=== PATIENT | female | born 1955 | race Caucasian/White ===

== ENCOUNTER 2017-08-27 13:51 | Inpatient (IN) | payer SELFPAY ==
[~2017-08-27 13:51] MED LIST: ISOVUE-370 76%-LOCM 1 ML ONE
[2017-08-27 15:46] LABS: Hemoglobin 13.4 g/dL (12.0-16.0); Mean Corpuscular HGB CONC 34.5 g/dL (32.0-36.0); Mean Corpuscular Hemoglobin 33.6 pg (27.0-31.0); Mean Corpuscular Volume 97.4 fl (81.0-99.0); Mean Platelet Volume 6.2 fL (7.4-10.4); Platelet Count 349 thou/uL (130-400); RBC Distribution Width 12.2 % (11.5-14.5); Red Blood Cell (RBC) Count 3.99 mill/uL (4.20-5.40); White Blood Cell (WBC) Count 24.9 thou/uL (4.8-10.8)
[2017-08-27 16:05] LABS: ALT (SGPT) 12 U/L (8-55); AST (SGOT) 22 U/L (5-34); Albumin 3.8 g/dL (3.5-5.0); Alkaline Phosphatase 105 U/L (40-150); Anion Gap 19 mmol/L (10-20); BUN (Urea Nitrogen) 10 mg/dL (9.8-20.1); Bilirubin, Total 0.5 mg/dL (0.2-1.2); Calc. Creatinine Clearance 0 mL/min (70-130); Calcium 9.5 mg/dL (7.8-10.44); Carbon Dioxide 20 mmol/L (22-29); Chloride 99 mmol/L (98-107); Estimated GFR-MDRD 50; Globulin 4.2 g/dL (2.4-3.5); Glucose 222 mg/dL (70-105); Lipase 7 U/L (8-78); Sodium 134 mmol/L (136-145)
[2017-08-27 16:14] LABS: Band 37 % (5-11); Lymphocytes 2 % (21-51); MDiff Complete? YES; Monocytes 2 % (0-10); Neutrophil 59 % (42-75); PLT Morphology Comment Appears Adequate
[2017-08-27 16:45] LABS: Bilirubin Negative (Negative); Blood, Urine Moderate (Negative); Clarity CLEAR (Clear); Glucose, Urine (Dipstick) Negative (Negative); Leukocyte Small (Negative); Nitrite Negative (Negative); Protein, Urine (Dipstick) Negative (Neg-Trace); Specific Gravity, Urine 1.016 (1.002-1.036); Urobilinogen 0.2 mg/dL (0.2-1.0); pH, Urine 5.5 (5.0-9.0)
[2017-08-27 16:47] LABS: Bacteria/HPF None Seen HPF (None Seen); Hyaline Casts/LPF 0-3 HYALINE CAST LPF (0-3 Hyaline); Pathc Cast-AUWi Flag 0.58 (0-2.49); WBC/HPF 0-3 HPF (0-3)
--- NOTE | 2017-08-27 17:45 | CT ---
CT ABDOMEN AND PELVIS WITH IV CONTRAST 08/27/17 HISTORY: Abdominal pain. COMPARISON: 09/24/16. FINDINGS: Mild atelectasis at the lung bases. Left renal collecting system and ureter are moderately distended into the pelvis where obstruction is due to large area of inflammation arising from the sigmoid colon . There is a small amount of adjacent gas, fat stranding Small pockets of gas are present in the area of inflammation. Small amount of free fluid. Diverticula arise from the colon. Degenerative changes lumbar spine. Calcification within the arterial structures. Reflux of fluid into the esophagus. IMPRESSION: Severe sigmoid colitis. Favored to be diverticulitis, with small pockets of extra enteric gas consist ent with perforation. Resulting obstruction of the distal left ureter. Findings were called to Dr. Moon in the Emergency Department at 1730 hours. Code CR POS: [id number]
[2017-08-27] MEDS ORDERED: Dexamethasone 4 mg/ml Vial ONE (17:46)
[2017-08-27] MEDS ORDERED: Meropenem 2 GM in Sodium Chloride 0.9% 100 ML IVPB ONE (18:00)
[2017-08-27] MEDS ORDERED: Ondansetron HCl/PF 4 MG/2 ML Vial IVP PRN (19:28)
[2017-08-27 19:33] VITALS: BMI 22.0
[2017-08-27] MEDS ORDERED: Acetaminophen 1,000 MG in Premix Bag 1 BAG IVPB PRN (20:00)
[2017-08-27] MEDS: Sodium Chloride 0.9% 1,000 ML IV SCH (20:20)
[2017-08-27] MEDS ORDERED: Meropenem 1 GM in Sodium Chloride 0.9% 100 ML IVPB SCH (22:00)
[2017-08-27] MEDS: Morphine 4 MG/ML VIAL SLOW IVP PRN (23:46)
--- NOTE | 2017-08-28 01:10 | HP ---
CHIEF COMPLAINT: Abdominal pain. HISTORY OF PRESENT ILLNESS: Ms. Jones is a 61-year-old woman with a previous history of colitis in 2011, who was admitted to the hospital with severe abdominal pain. She states that she has been havi ng bowel issues for the past 8 weeks. She said that she would occasionally have some lower abdominal pain, but it was not severe, would usually go away, but she has been having mucousy stools of decrea sed caliber as well as some diarrhea. She denies any blood in her stool. She has had chills a coupl e of times, but has not had any high fevers. She has also had upper back pain since yesterday. She states that the abdominal pain has been slowly becoming more severe. She thought it would go away, b ut it did not, so she went into her primary care doctor who made her an appointment for colonoscopy n ext week, but this morning the pain was so severe she realized that she would not be able to wait ana paula t long. She called a friend who brought her into the emergency room. She states that the pain has s rosa subsided somewhat. She was admitted to the hospital in 2011 with a diagnosis of colitis. This was felt to most likely be due to diverticulitis, but she was recommended to have a colonoscopy. One of her doctors told her that he was suspicious of ulcerative colitis, but on questioning, the patien t does not have any longstanding history of diarrhea, bloody bowel movements or other symptoms sugges tive of ulcerative colitis and on review of her CAT scan from 2011, it was just a sigmoid colon that was involved and this was a rather short segment of approximately 7 cm. She has never had symptoms o f severe proctitis, although she has had problems recently with pelvic prolapse and pressure related to that. She has not ever had a colonoscopy, but she did do the stool testing 2 years ago which was negative. She is not sure if this was looking for cancer DNA or just blood in the stool. She was po sted do it again this year, but forgot to sending the card. The patient cannot identify any triggers or alleviators for her pain. She took some milk of magnesia yesterday thinking that she just needed to be cleared out and she thinks that may have triggered the intense pain this morning, but other th an that, she has not noticed anything that seems to make a difference. She has not had any weight lo ss or gain recently 4 years ago and she was going through her divorce. She lost about 50 pounds over the course of the year, but she since gained back about 25 of that and her weight has been stable. She does have a family history of colon cancer in a grandfather, which was diagnosed in his 70s. No other history of GI malignancy. PAST MEDICAL HISTORY: Anxiety. She did have reflux in the past, but this resolved after her weight loss. She has also had colitis once in the past, one doctor told her that he felt this was ulcerativ e colitis, but she has never had a colonoscopy or seen a integrated program teacher for that. PAST SURGICAL HISTORY: Surgery for an ectopic in 1991 and then tubal ligation. SOCIAL HISTORY: The patient smokes rarely. She has had a couple of cigarettes in the past week and is trying to quit. She does not drink or use illicit drugs. [place] [employer]. 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 OUTPATIENT MEDICATIONS: None chronic and she does have clonazepam for p.r.n. use for anxiety. ALLERGIES: She reports allergies to SULFA which cause a rash. She does not tolerate CODEINE. PENIC ILLINS are avoided due to her mother reporting that either she or her brother had reaction of some so rt to it as a child, but she has no idea what the reaction was or whether it was even her. PHYSICAL EXAMINATION: VITAL SIGNS: T-max in the emergency room 99.5, T current 98.8, heart rate around 100, blood pressure 123/83, respirations 16, 97% saturated on room air. GENERAL: Reveals a stressed appearing woman in no acute distress. She is not flushed or toxic in ap pearance. She is not jaundiced or icteric. HEENT: Unremarkable. NECK: Supple, without lymphadenopathy or thyroid nodules. HEART: Regular in its rate and rhythm without murmurs, rubs or gallops. LUNGS: Clear to auscultation bilaterally. She has no pain with deep inspiration. ABDOMEN: Soft, slightly distended, nontender in the upper abdomen, quite tender in the suprapubic an d left lower quadrant, but without rigidity, rebound or guarding. Small umbilical hernia. No palpab le masses. EXTREMITIES: Warm and well perfused. She does not have evans costovertebral angle tenderness, but d oes state that she has some pain with percussion of her back which is worse on the left than the righ t; however, she states that this is chronic. REVIEW OF SYSTEMS: Ten-system review of systems is negative except per HPI. She also states that fo r the past week or so she has had flu-like symptoms with myalgias and fatigue. LABORATORY DATA: White count is elevated at 25,000 with bandemia of 37%. Her electrolytes are unrem arkable. Hematocrit is 38.8, glucose is mildly elevated at 222. Her LFTs are normal. She has a sma ll amount of leukocytes and moderate blood in her urine without bacteria and with 0-3 white cells, an d 4-[address] images from today and from 2012 were reviewed. The patient has severe inflammat ion of her sigmoid colon which involves a much longer segment today than it did in 2012. She does love ve some diverticula and a few foci of extraluminal air in the pericolonic area consistent with microp erforation, but no abscess formation. She has hydroureter and hydronephrosis on the left, which is n ew. Both kidneys laid up evenly. ASSESSMENT: Severe diverticulitis with left hydronephrosis and hydroureter. Urology has been consul parker. There is no indication for urgent general surgical intervention at this time and we are going t o try a course of broad spectrum antibiotics to see if she will respond to this and avoid colectomy. I am somewhat concerned at the ureteral obstruction as this is rather unusual even with advanced div erticulitis. This could all be due to inflammation, but occult malignancy has to be considered. I h aury ordered a CEA, but given her active colitis she probably will be able to have a colonoscopy in e near future. I will ask GI to see her. The presumptive diagnosis of ulcerative colitis which she was given in 2012, it is in my opinion unwarranted. She did receive a dose of Decadron in the ER bas ed on this history, but I certainly will not be giving her any additional steroids. If her condition worsens, then she will likely proceed to colectomy with ostomy. If she does request will require co lectomy then bilateral ureteral stenting would be requested given the severity for diverticulitis.
[2017-08-28] MEDS: MEROPENEM 1 GM/50 ML 1 GM in Premix Bag 1 BAG IVPB SCH ×3 (01:18→17:29)
[2017-08-28 05:24] LABS: #Lymphocytes 0.8 thou/uL (1.20-3.40); #Monocytes 0.2 thou/uL (0.11-0.59); #Neutrophils 15.5 thou/uL (1.40-6.50); %Basophils 0.1 % (0.0-1.0); %Eosinophils 0.1 % (0.0-10.0); %Lymphocytes 4.9 % (21.0-51.0); %Neutrophils 93.9 % (42.0-75.0); Hemoglobin 12.7 g/dL (12.0-16.0); Mean Corpuscular Hemoglobin 31.8 pg (27.0-31.0); Mean Corpuscular Volume 96.3 fl (81.0-99.0); Mean Platelet Volume 6.4 fL (7.4-10.4); Platelet Count 354 thou/uL (130-400); RBC Distribution Width 12.5 % (11.5-14.5); White Blood Cell (WBC) Count 16.5 thou/uL (4.8-10.8)
[2017-08-28 05:34] LABS: ALT (SGPT) 13 U/L (8-55); AST (SGOT) 15 U/L (5-34); Albumin 3.8 g/dL (3.5-5.0); Alkaline Phosphatase 92 U/L (40-150); Anion Gap 14 mmol/L (10-20); BUN (Urea Nitrogen) 9 mg/dL (9.8-20.1); Bilirubin, Total 0.3 mg/dL (0.2-1.2); Calc. Creatinine Clearance 77 mL/min (70-130); Calcium 9.5 mg/dL (7.8-10.44); Carbon Dioxide 23 mmol/L (22-29); Chloride 106 mmol/L (98-107); Estimated GFR-MDRD 77; Globulin 3.9 g/dL (2.4-3.5); Glucose 149 mg/dL (70-105); Potassium 3.9 mmol/L (3.5-5.1); Protein, Total 7.7 g/dL (6.0-8.3); Sodium 139 mmol/L (136-145)
--- NOTE | 2017-08-28 06:39 | CON ---
DATE OF CONSULTATION: 08/27/2017 REASON FOR CONSULTATION: Left-sided hydronephrosis. HISTORY OF PRESENT ILLNESS: Ms. Jones is a 61-year-old female with a prior history of severe divert iculitis treated conservatively several years ago. She presents now with a several week history of a bdominal discomfort. This pain progressively worsened to the point that she presented to the emergen cy room for evaluation. The pain has been severe, beginning in approximately at 2:00 this morning. She underwent CT scan imaging that demonstrated diverticulitis with probable microperforations. Dioni tional findings included left-sided hydronephrosis with hydroureter down to the level of the inflamma tory changes in the colon. For this reason, urologic consultation was requested. She does have flan k pain, left greater than right, although it is not severe. She denies any dysuria. She has had low -grade fever and denies vomiting. PAST MEDICAL HISTORY: Significant for TIA, prior diverticulitis. PAST SURGICAL HISTORY: Surgery for ectopic in 1991, tubal ligation. SOCIAL HISTORY: She drinks alcohol on a social basis. She denies illicit drug use. She is a cigare tte smoker. ALLERGIES: Include CODEINE, PENICILLIN, and SULFA. CURRENT MEDICATIONS: Clonazepam. REVIEW OF SYSTEMS: Respiratory: No shortness of breath. Cardiovascular: No chest pain or palpitat ions. Gastrointestinal: Please see history of present illness. Genitourinary: Please see history of present illness. Neurologic: Denies any recent episodes of dizziness or loss of consciousness. Musculoskeletal: No new joint or bone pain. PHYSICAL EXAMINATION: GENERAL: She is awake and alert. She is in no distress at this time. VITAL SIGNS: Blood pressure 161/96, pulse 94, respiratory rate 18, temperature 99.4. HEENT: Normocephalic, atraumatic. NECK: Supple, no masses. CHEST: Clear to auscultation. CARDIOVASCULAR: No murmurs auscultated. ABDOMEN: Tenderness in the lower abdomen without palpable mass. EXTREMITIES: No edema. LABORATORY DATA: White blood cell count 24.9, hemoglobin 13.4, hematocrit 38.8, and platelet count 3 49. Sodium 134, potassium 4.0, chloride 99, carbon dioxide 20, BUN 10, creatinine 1.11, and glucose 222. CEA 3.41. Urinalysis, moderate blood, small leukocyte esterase positive, and no bacteria seen. CT scan, sigmoid colitis with inflammation demonstrated within the sigmoid colon and probable gas for mation consistent with microperforation, left-sided hydronephrosis with hydroureter down to the regio n of the inflammatory changes in the sigmoid colon. IMPRESSION: Sigmoid colitis resulting in left-sided hydronephrosis, although she does have some left -sided flank pain and is not severe. She has no evidence of left renal infection. I have discussed management options, which include conservative management without any intervention and repeat imaging to assess for improvement and hydronephrosis versus ureteral stent placement. She is considering ou r options. If she develops a severe left-sided flank pain, worsening hydronephrosis, or any signs of left renal obstruction, then left ureteral stent is mandatory. PLAN: Cystoscopy, left ureteral stent placement possibly tomorrow or at a later date if any mandator y indication such as worsening hydronephrosis, worsening flank pain, or symptoms of pyelonephritis.
[2017-08-28] MEDS: Sodium Chloride 0.9% 1,000 ML IV SCH ×3 (08:52→23:06)
[2017-08-28] MEDS: Pantoprazole 40 MG VIAL IVP SCH (08:53)
[2017-08-28] MEDS ORDERED: Iothalamate Meglumine 60% 50 ML VIAL FS ONE (11:45)
[2017-08-28] MEDS ORDERED: Fentanyl 100 MCG/2 ML VIAL ONE (11:52)
[2017-08-28] MEDS ORDERED: Midazolam HCl 2 mg/2 ml Vial ONE ×2 (11:52→11:54)
[2017-08-28] MEDS ORDERED: Albuterol Sulfate 1.25 MG/3 ML NEB ONE (11:59)
[2017-08-28] MEDS ORDERED: Albuterol Sulfate 2.5 mg/3 ml Neb NEB SCH (12:30)
[2017-08-28] MEDS ORDERED: Promethazine HCl 25 MG/ML VIAL IM PRN (12:49)
[2017-08-28] MEDS ORDERED: Meperidine HCl/PF 25 MG/ML VIAL SLOW IVP PRN (12:49)
[2017-08-28] MEDS ORDERED: Promethazine HCl 25 MG/ML VIAL SLOW IVP PRN (12:49)
[2017-08-28] MEDS ORDERED: Ondansetron HCl/PF 4 MG/2 ML Vial IVP PRN (12:49)
--- NOTE | 2017-08-28 13:09 | OP ---
DATE OF PROCEDURE: 08/28/2017 PROCEDURE: Cystoscopy, left ureteral stent placement. SURGEON: Obed Machado MD ANESTHESIA: General. INDICATIONS: Ms. Jones is a 61-year-old female, admitted to the hospital on 08/29/2017 with diverti culitis. As a result of inflammation, she has developed left ureteral obstruction with proximal uret eral dilation and left-sided hydronephrosis. She is now having significant symptoms from her left ki dney. We opted to proceed with cystoscopy and stent placement in order to protect the kidney while s he is being treated medically for her diverticular disease. DETAILS OF PROCEDURE: The patient was given general anesthesia and IV antibiotics. She was sterilel y prepped and draped in lithotomy position. The cystoscope was passed into the bladder. The bladder was examined in its entirety. It was normal other than rather significant prolapse. Left ureteral orifice was intubated with a floppy tip guidewire, which was passed cephalad under fluoroscopic contr ol. A 6 x 24 double-J stent was passed over the guidewire and coiled in the left renal pelvis and in the bladder as determined fluoroscopically and cystoscopically. The string was removed. The cystos cope was removed. The patient tolerated the procedure well. She was transferred from the operating room to recovery room in stable condition. COMPLICATIONS: None. ESTIMATED BLOOD LOSS: Minimal.
--- NOTE | 2017-08-28 13:21 | RAD ---
INTRAOPERATIVE FLUOROSCOPY: Date: 08/28/17 HISTORY: Left stent placement. COMPARISON: None. FINDINGS: Single fluoroscopic view demonstrates a left-sided double pigtail stent. Proximal pigtail appears to be in the expected region of the left renal pelvis. Distal pigtail is not included on this exam. IMPRESSION: Fluoroscopy as above. POS: [facility]
[2017-08-28] MEDS ORDERED: Lidocaine 1% PF 5 ML VIAL ONE (15:52)
[2017-08-28] MEDS ORDERED: PROPOFOL 200 MG/20 ML VIAL ONE (15:52)
[2017-08-28] MEDS ORDERED: Dexamethasone 20 MG/5 ML VIAL ONE (15:52)
--- NOTE | 2017-08-28 15:54 | CON ---
DATE OF CONSULTATION: 08/28/2017 REASON FOR CONSULTATION: Perforated diverticulitis. CONSULTING PHYSICIAN: Bryant Smallwood M.D. HISTORY OF PRESENT ILLNESS: Patient is a 61-year-old female with past medical history of anxiety, TI A and prior diverticulitis and possible colitis presenting with complaints of increased left lower qu adrant abdominal pain. She states that in 2011, she had an acute onset of suprapubic abdominal pain for which she was hospitalized. Through that particular hospitalization, she was diagnosed with "col itis" and treated conservatively with IV antibiotics. She was ultimately discharged to home with hernan ns to proceed with a colonoscopy as an outpatient; however, the colonoscopy never took place and arou nd 8 weeks ago, she started having increased suprapubic abdominal pain that has progressively worsene d over the same time. The pain was located in the suprapubic and left lower quadrant characterized a s an aching type pain with an ultimate severity of 10/10 with non-radiation to the other parts of the abdomen. This was also associated with increased subjective fevers, chills, some nausea without malissa sis and more mucoid appearing stools in addition to change in her bowel habits consisting more of rogerio k/pebble like stool consistency/form. Initially, the pain became too great in order for her to manag e it on her own as an outpatient despite the administration of oral Tylenol and Benadryl. While in [facility] ER, she was evaluated with CT scan which showed mucosal wall thickening within the sigmoid colon a s well as foci of air consistent with a perforated diverticulitis. She was ultimately admitted to [facility] General Surgery Service and has been responding well to more conservative management with antibioti c therapy. Today, she states that her abdominal pain is greatly improved with only minimal aching in the suprapubic and left lower quadrant regions. She did undergo ureteral stent placement earlier th is morning and does have some pinching type pain associated with that. Currently, denies any nausea, vomiting, fevers, chills, hematemesis, melena or hematochezia. REVIEW OF SYSTEMS: A 10 category review of systems was obtained with all responses negative except f or the pertinent positives as listed in the HPI. PAST MEDICAL HISTORY: As per HPI. PAST SURGICAL HISTORY: Ectopic in 1991 with tubal ligation. FAMILY HISTORY: The patient states that she had a grandfather diagnosed with colon cancer in his 70s . No other history of GI malignancy. SOCIAL HISTORY: Smokes approximately 3-4 cigarettes per day, but has been attempting to quit. Denie s any alcohol or illicit drug use. OUTPATIENT MEDICATIONS: None. ALLERGIES: SULFA, CODEINE, and PENICILLIN. PHYSICAL EXAMINATION: VITAL SIGNS: Temperature of 98.5, pulse 80, blood pressure 129/89, respiratory rate 16, satting 97% on room air. GENERAL: The patient lying in bed in no acute distress. She is alert and oriented x4. NECK: Supple. No JVD noted. CARDIOVASCULAR: Regular rate and rhythm with no discernible murmurs, gallops or rubs. RESPIRATORY: Clear to auscultation bilaterally with no discernible wheezes or rales. ABDOMEN: Normoactive bowel sounds, soft, and nondistended. Tenderness to palpation with both light and deep palpation in the suprapubic and left lower quadrant. EXTREMITIES: No cyanosis, clubbing or edema. LABORATORY DATA: CBC with white blood cell count of 16.5, hemoglobin 12.7, hematocrit 38.6, and plat elets 354. Chemistry with sodium of 139, potassium 3.9, chloride 106, CO2 23, BUN 9, creatinine 0.77 , glucose 149, AST 15, ALT 13, alkaline phosphatase 92, total bilirubin 0.3, and CEA 3.41. IMAGING DATA: CT abdomen and pelvis obtained on 08/27/2017 showed left renal collecting system and u reter was moderately distended into the pelvis where obstruction is due to a large area of inflammati on arising from the sigmoid colon. There is a small amount of adjacent gas, fat stranding and small pockets of gas are present within the area of inflammation. Also noted were diverticula arising from the colon consistent with severe sigmoid colitis consistent with perforated diverticulitis. ASSESSMENT AND PLAN: The patient is a 61-year-old female with past medical history of anxiety, trans ient ischemic attack and prior diverticulitis, presenting with contained perforated diverticulitis. Diverticulitis: The patient initially presented in 2011 with an episode of suprapubic and left lower quadrant abdominal pain that was initially diagnosed with colitis per imaging findings at that time. She was ultimately recommended to have a colonoscopy which never took place now. Now she is presen ting with an 8 week history of progressive worsening of her suprapubic and left lower quadrant abdomi nal pain consistent with her prior diagnosis of diverticulitis. CT scans are consistent with this pa rticular diagnosis with contained perforation as seen with small pockets of extra enteric gas. At th e current point in time she is responding well to more conservative management with antibiotic therap y and n.p.o. status. Colonoscopic evaluation is not indicated at this time due to significant increa sed risk of perforation with this particular procedure. However, she will need a colonoscopy here in the near future. RECOMMENDATIONS: 1. Would continue IV antibiotics as you are doing for antibiotic therapy for contained perforated di verticulitis. 2. Would maintain n.p.o. status for at least the next 24 hours and then consider advancing diet as t olerated. 3. Would hold on any additional endoscopic evaluation at this time given the increased risk of perfo ration. 4. Would hold on higher fiber diet as at this point could cause more inflammation with the colitis f rom the diverticulitis. 5. Pain control per primary team. 6. Agree with consultation with Urology Service for prophylactic stent placement given the obstructi on of her left ureter. We will continue to follow. Please call with any additional questions.
[2017-08-28] MEDS ORDERED: HYDROcodone/Acetaminophen 7.5/325 mg Tablet PO PRN ×2 (15:58)
[2017-08-28] MEDS: Hyoscyamine Sulfate SL 0.125 mg Tablet SL PRN ×2 (17:01→21:53)
[2017-08-28] MEDS: ALPRAZolam 0.25 MG TAB PO PRN ×2 (17:01→23:06)
[2017-08-28] MEDS: Enoxaparin Sodium 40 MG/0.4 ML SYRINGE SC SCH (20:16)
--- NOTE | 2017-08-28 22:49 | PDOC.GSPN ---
Surgery Progress Note: Subj - Subjective Narrative: Had ureteral stent placed today. Very agitated and upset this afternoon due to severe discomfort (stabbing, burning) when she stands. OK when she lies down. Refused pain meds from nurse, demanded removal of stent. Otherwise abdominal pain is better since yesterday. No nausea. Decreased tenderness to palpation on exam, afebrile and WBC going down. CEA not elevated. Spoke w Dr Machado and then w patient. Discomfort common after stent placement and usually abates. Antispasmotics and pain medication recommended. Pt to limit activities and stay on mostly bed rest today and Dr Machado will re-evaluate tomorrow. If not improved, stent removal will be considered. I also ordered prn anxiolytic as pt has consistently demonstrated very high levels of anxiety and stress. She tried an SSRI for this in the past but had suicidal ideation so stopped. She was recently prescribed and took clonezapam a couple times but then her colitis worsened and she was taking Tylenol PM and benadryl and was worried about drug interactions so stopped clonezepam. Clinically diverticulitis seems to be responding to medical treatment so will continue to treat conservatively. Pt was reassured by plan of care and was much calmer after discussion. Dr. Hutchinson covering this weekend. Surgery Progress Note: Obj - Vital signs Vital signs: Vital Signs - Most Recent Temp Pulse Resp BP Pulse Ox 98.2 F 93 20 130/77 99 08/28/17 20:00 08/28/17 20:00 08/28/17 20:00 08/28/17 20:00 08/28/17 20:00 Surgery Progress Note: Results - Labs Result Diagrams: 08/28/17 04:53 08/28/17 04:53
[2017-08-29] MEDS: MEROPENEM 1 GM/50 ML 1 GM in Premix Bag 1 BAG IVPB SCH ×3 (03:30→17:56)
[2017-08-29 04:34] LABS: #Lymphocytes 1.1 thou/uL (1.20-3.40); #Monocytes 0.6 thou/uL (0.11-0.59); #Neutrophils 12.6 thou/uL (1.40-6.50); %Basophils 0.2 % (0.0-1.0); %Lymphocytes 7.6 % (21.0-51.0); %Monocytes 4.4 % (0.0-10.0); %Neutrophils 87.8 % (42.0-75.0); Hemoglobin 11.1 g/dL (12.0-16.0); Mean Corpuscular HGB CONC 33.6 g/dL (32.0-36.0); Mean Corpuscular Volume 98.2 fl (81.0-99.0); Mean Platelet Volume 6.8 fL (7.4-10.4); Platelet Count 335 thou/uL (130-400); RBC Distribution Width 12.4 % (11.5-14.5); Red Blood Cell (RBC) Count 3.36 mill/uL (4.20-5.40); White Blood Cell (WBC) Count 14.4 thou/uL (4.8-10.8)
[2017-08-29 05:05] LABS: Anion Gap 9 mmol/L (10-20); BUN (Urea Nitrogen) 9 mg/dL (9.8-20.1); Calc. Creatinine Clearance 94 mL/min (70-130); Calcium 8.6 mg/dL (7.8-10.44); Carbon Dioxide 25 mmol/L (22-29); Chloride 110 mmol/L (98-107); Estimated GFR-MDRD Greater than 90; Glucose 141 mg/dL (70-105); Potassium 3.7 mmol/L (3.5-5.1); Sodium 140 mmol/L (136-145)
[2017-08-29] MEDS: Hyoscyamine Sulfate SL 0.125 mg Tablet SL PRN ×2 (06:01→22:40)
[2017-08-29] MEDS: Sodium Chloride 0.9% 1,000 ML IV SCH ×2 (07:50→22:41)
[2017-08-29] MEDS: Pantoprazole 40 MG VIAL IVP SCH (07:51)
[2017-08-29] MEDS: Morphine 4 MG/ML VIAL SLOW IVP PRN (07:54)
--- NOTE | 2017-08-29 14:51 | PRG ---
DATE OF SERVICE: 08/29/2017 REASON FOR CONSULTATION: Colitis, diverticulitis. SUBJECTIVE: The patient states that she is feeling better this morning with more solidification of h er bowel movements and no more mucoid stools. The lower abdominal pain that she was admitted with is also significantly better. However, she does have some left lower quadrant abdominal pain, more rel ated to the placement of the ureteral stent yesterday. Currently, denies any nausea, vomiting, fever s, chills, or GI bleeding. OBJECTIVE: VITAL SIGNS: Temperature 98.9, pulse 74, blood pressure 159/92, respiratory rate 18, satting 97% on room air. GENERAL: The patient is lying in bed, in no acute distress, alert and oriented x4. CARDIOVASCULAR: Regular rate and rhythm. RESPIRATORY: Clear to auscultation bilaterally. ABDOMEN: Normoactive bowel sounds, soft, nondistended, tenderness to palpation in the left lower oscar drant. EXTREMITIES: No cyanosis, clubbing or edema. LABORATORY DATA: CBC with a white blood cell count of 14.4, hemoglobin 11.1, hematocrit 33, platelet s 335. Chemistry with sodium of 140, potassium 3.7, chloride 110, CO2 of 25, BUN 9, creatinine 0.63, glucose 141. IMAGING DATA: No current GI imaging is available for review. ASSESSMENT AND PLAN: The patient is a 61-year-old female with past medical history of anxiety, trans ient ischemic attack, and prior diverticulitis/colitis, presenting with contained perforated divertic ulitis. Diverticulitis. The patient initially presented in 2011 with an episode of suprapubic and left lower quadrant abdominal pain that was initially diagnosed with colitis per imaging, now presenting with a n 8 week history of progressive worsening of her suprapubic pain with CT findings consistent with con tained perforated diverticulitis. At this point, she is responding well to conservative management w ith antibiotic therapy. RECOMMENDATIONS: 1. We would continue IV antibiotics as you are doing for a contained perforated diverticulitis. 2. We would advance diet as tolerated given solidification of her stools and lessening abdominal leela n. 3. Pain control per primary team. 4. The patient will need a colonoscopy within 4-6 weeks of discharge for evaluation of any intraabdo tasha pathology; however, a colonoscopy in the short-term. It is contraindicated due to increased in flammation within the colon and increased risk of perforation. We will sign off at this time. Please have the patient follow up in the GI clinic within 2-3 weeks o f discharge for reevaluation of her abdominal pain and scheduling of the colonoscopy at that time.
--- NOTE | 2017-08-29 18:28 | PRG ---
DATE OF SERVICE: 08/29/2017 HISTORY OF PRESENT ILLNESS: The patient reports that she is having a lot of discomfort from the uret eral stent. The Levsin has helped some. She says that she has a bladder prolapse and the stent is p utting a lot of pressure on it. Other than that, she is passing gas. She is having some loose bowel movements. She is feeling better that way. PHYSICAL EXAMINATION: VITAL SIGNS: Temperature is 97.7, pulse 74, blood pressure 132/76. GENERAL: She is awake, alert, moving around, walking. LUNGS: Clear. ABDOMEN: Soft, still moderately tender in the left lower quadrant. She has quite a bit of urine out 2300. Again, she is tolerating clear liquids well and is actually very hungry for something more dockery bstantial. Her abdomen is not distended. LABORATORY DATA: Her white count is 14 down from 24, H&H 11 and 33, platelet count 335. Electrolyte s, glucose still a little elevated at 141. IMPRESSION: Diverticulitis with obstructed ureter, relieved by stent. PLAN: Continue IV antibiotics. Advance diet to full liquids.
[2017-08-29] MEDS: Enoxaparin Sodium 40 MG/0.4 ML SYRINGE SC SCH (20:27)
[2017-08-29] MEDS: ALPRAZolam 0.25 MG TAB PO PRN (22:40)
[2017-08-30] MEDS: MEROPENEM 1 GM/50 ML 1 GM in Premix Bag 1 BAG IVPB SCH ×3 (02:35→18:04)
[2017-08-30] MEDS: Hyoscyamine Sulfate SL 0.125 mg Tablet SL PRN ×3 (02:40→16:14)
[2017-08-30] MEDS: ALPRAZolam 0.25 MG TAB PO PRN ×2 (06:43→16:10)
[2017-08-30] MEDS: Pantoprazole 40 MG VIAL IVP SCH (08:53)
[2017-08-30] MEDS: Sodium Chloride 0.9% 1,000 ML IV SCH ×2 (10:10→18:04)
[2017-08-30] MEDS: Enoxaparin Sodium 40 MG/0.4 ML SYRINGE SC SCH (21:57)
[2017-08-30] MEDS: Acetaminophen 500 MG TAB PO PRN (21:57)
[2017-08-31] MEDS: ALPRAZolam 0.25 MG TAB PO PRN ×4 (00:41→17:39)
[2017-08-31] MEDS: MEROPENEM 1 GM/50 ML 1 GM in Premix Bag 1 BAG IVPB SCH ×3 (02:31→17:35)
[2017-08-31] MEDS: Sodium Chloride 0.9% 1,000 ML IV SCH (05:01)
[2017-08-31] MEDS: Acetaminophen 500 MG TAB PO PRN ×3 (05:39→17:39)
[2017-08-31] MEDS: Pantoprazole 40 MG VIAL IVP SCH (08:39)
--- NOTE | 2017-08-31 09:22 | PRG ---
DATE OF SERVICE: 08/29/2017 CHIEF COMPLAINT: Bladder and left lower quadrant pain, gross hematuria. PHYSICAL EXAMINATION: VITALS: Temperature 98.2, blood pressure 128/79, O2 sat 97%. LABORATORY: White blood cell count 14.4, down from 24.9, hemoglobin 11.1, hematocrit 33. ABDOMEN: Soft, mild discomfort on palpation. EXTREMITIES: No edema. ASSESSMENT AND PLAN: Ms. Jones is status post left ureteral stent placement for left ureteral obstr uction secondary to diverticulitis. She is not tolerating the stent well, although she is much impro raymundo today compared to yesterday. She complains of blood in the urine and urinary frequency and pain. She does make a large volume of urine over 2 liters. I have encouraged her to give the discomfort associated with the stent time in hopes that it will improve. Removing the stent, although an option does put her kidney at risk. PLAN: 1. Continue hyoscyamine. 2. Plan to leave the stent in place long as her symptoms can be tolerated.
--- NOTE | 2017-08-31 09:29 | PRG ---
DATE OF SERVICE: 08/31/2017 CHIEF COMPLAINT: Stent discomfort, hematuria. PHYSICAL EXAMINATION: VITAL SIGNS: Temperature 98.3, pulse 52, O2 sat 96%, blood pressure 149/85. Urine output 5500 mL. ABDOMEN: Soft, no peritoneal signs. LABORATORY: No recent laboratory. ASSESSMENT: Stent discomfort, but improved. I have encouraged her to leave the stent in place and s he has agreed. One of her complaints is urinary frequency. This is partly based on a huge urine ou tput (5500 mL). We will arrange for stent removal in the office in a week at earliest. If her stent discomfort is more tolerable, then we will leave the stent in longer. RECOMMENDATIONS: Okay for discharge home from a urologic standpoint. We will arrange for followup a nd stent removal in 1 week or later if she is tolerating her stent better.
[2017-08-31] MEDS ORDERED: Sodium Chloride 0.9% 1,000 ML IV SCH (13:30)
--- NOTE | 2017-08-31 14:39 | RAD ---
TWO VIEWS OF THE ABDOMEN: INDICATION: Abdominal distention. COMPARISON: Prior CT of the abdomen and pelvis dated 08/27/17 and an IVC retrograde evaluation dated 08/28/17. FINDINGS: The left ureteral stent is not appreciably changed in comparison to the prior exam. The bowel gas pa ttern is unobstructed. Levoscoliosis is similar involving the lumbar spine. Osteopenia and mild sca ttered degenerative change is similar. IMPRESSION: Stable exam to the recent IVP retrograde evaluation dated 08/28/17. The left ureteral stent is unchan ged in position. POS: JENNY
[2017-08-31] MEDS: Enoxaparin Sodium 40 MG/0.4 ML SYRINGE SC SCH (20:20)
--- NOTE | 2017-08-31 21:59 | PRG ---
DATE OF SERVICE: 08/30/2017 SUBJECTIVE: The patient is reporting that the ureteral stent is causing a lot of discomfort and a lo t of spasms. She thinks that the swelling has gone down have it removed, the urologist I have said that she would need to discuss that with him. She is otherwise doing well. She is tolera ting full liquids. She is hungry. She wants to try some meals, but she is having some abdominal dis tention and only loose stools. OBJECTIVE: VITAL SIGNS: Temperature 98.2, pulse 58, blood pressure 147/82. GENERAL: She actually looks good. She is in no apparent distress. GASTROINTESTINAL: Her abdomen is slightly distended and really no significant tenderness. She has a ctual urine output at 3300. She did have 2 loose bowel movements. LABORATORY DATA: No new laboratory. ASSESSMENT: Diverticulitis. PLAN: One more day of full liquids, we will let Dr. Smallwood decide when to advance.
[2017-09-01] MEDS: MEROPENEM 1 GM/50 ML 1 GM in Premix Bag 1 BAG IVPB SCH ×3 (01:50→18:12)
[2017-09-01] MEDS: Hyoscyamine Sulfate SL 0.125 mg Tablet SL PRN ×3 (02:12→15:24)
[2017-09-01] MEDS: ALPRAZolam 0.25 MG TAB PO PRN ×3 (02:13→15:24)
[2017-09-01 05:41] LABS: #Eosinphils 0.2 thou/uL (0.0-0.7); #Monocytes 0.8 thou/uL (0.11-0.59); #Neutrophils 5.1 thou/uL (1.40-6.50); %Basophils 0.2 % (0.0-1.0); %Eosinophils 2.9 % (0.0-10.0); %Lymphocytes 24.2 % (21.0-51.0); %Monocytes 9.9 % (0.0-10.0); %Neutrophils 62.9 % (42.0-75.0); Hemoglobin 13.4 g/dL (12.0-16.0); Mean Corpuscular HGB CONC 34.2 g/dL (32.0-36.0); Mean Corpuscular Hemoglobin 32.7 pg (27.0-31.0); Mean Corpuscular Volume 95.7 fl (81.0-99.0); Mean Platelet Volume 6.3 fL (7.4-10.4); Platelet Count 404 thou/uL (130-400); RBC Distribution Width 12.1 % (11.5-14.5); Red Blood Cell (RBC) Count 4.09 mill/uL (4.20-5.40); White Blood Cell (WBC) Count 8.1 thou/uL (4.8-10.8)
[2017-09-01 06:08] LABS: Anion Gap 11 mmol/L (10-20); BUN (Urea Nitrogen) 8 mg/dL (9.8-20.1); Calc. Creatinine Clearance 100 mL/min (70-130); Carbon Dioxide 29 mmol/L (22-29); Chloride 101 mmol/L (98-107); Estimated GFR-MDRD Greater than 90; Glucose 100 mg/dL (70-105); Potassium 3.6 mmol/L (3.5-5.1); Sodium 137 mmol/L (136-145)
[2017-09-01] MEDS: Acetaminophen 500 MG TAB PO PRN ×2 (08:55→15:24)
[2017-09-01] MEDS: Pantoprazole 40 MG VIAL IVP SCH (08:56)
[2017-09-01] MEDS: Enoxaparin Sodium 40 MG/0.4 ML SYRINGE SC SCH (20:55)
--- NOTE | 2017-09-01 22:02 | PRG ---
DATE OF SERVICE: 09/01/2017 SUBJECTIVE: Ms. Jones is feeling a little better today. She still has a sensation of pressure in h er left lower abdomen, but she is unsure if this is due to the stent or the diverticulitis. Her whit e count is normal at 8. Urine output is brisk. Her abdomen is soft, nondistended and very minimally tender in the suprapubic area. She is having alternating diarrhea and pebble-like stools. ASSESSMENT: Clinically resolving diverticulitis. I will discuss with Dr. Machado how long he wants to leave the stent in and the patient would like to get it removed before she leaves the hospital, bu t this could put her at risk for recurrent hydronephrosis. If she continues to improve, I will switc h her to oral antibiotics tomorrow in anticipation of discharge in the next few days.
[2017-09-02] MEDS: MEROPENEM 1 GM/50 ML 1 GM in Premix Bag 1 BAG IVPB SCH ×3 (01:51→18:44)
[2017-09-02] MEDS: Hyoscyamine Sulfate SL 0.125 mg Tablet SL PRN ×4 (01:53→18:45)
[2017-09-02] MEDS: ALPRAZolam 0.25 MG TAB PO PRN ×2 (01:53→18:55)
[2017-09-02] MEDS: Acetaminophen 500 MG TAB PO PRN ×3 (01:54→18:45)
[2017-09-02] MEDS: Ondansetron ODT 4 MG TAB PO PRN ×3 (03:18→20:37)
[2017-09-02] MEDS: Morphine 4 MG/ML VIAL SLOW IVP PRN ×3 (03:19→21:20)
[2017-09-02] MEDS: Pantoprazole 40 MG VIAL IVP SCH ×2 (09:01→11:05)
[2017-09-02] MEDS ORDERED: Ciprofloxacin 500 MG TAB PO SCH (10:00)
[2017-09-02] MEDS ORDERED: Polyethylene Glycol 3350 17 GM Packet PO SCH (11:15)
[2017-09-02] MEDS: metroNIDAZOLE 500 MG TAB PO SCH ×2 (15:26→20:37)
--- NOTE | 2017-09-02 16:30 | PDOC.GSPN ---
Surgery Progress Note: Subj - Subjective Narrative: Patient is feeling better today. She still has some pressure in her left lower abdomen. She is unsure whether this is due to the stent or to her diverticulitis. She is moving around better and her pain is much improved. No nausea or vomiting and tolerating her soft diet. Afebrile with normal vital signs. Abdomen is soft and only very minimally tender in the left lower quadrant. Assessment: Diverticulitis responding to medical management. Plan: She will be transitioned to oral antibiotics today. If she continues to improve she will likely be discharged home tomorrow. I spoke with Dr. Bailey he prefers to leave her stent in for several weeks ideally; however, if she is not tolerating it he could remove it at her follow-up appointment Thursday. Surgery Progress Note: Obj - Vital signs Vital signs: Vital Signs - Most Recent Temp Pulse Resp BP Pulse Ox 97.1 F L 70 20 129/85 94 L 09/02/17 11:55 09/02/17 11:55 09/02/17 11:55 09/02/17 11:55 09/02/17 11:55 Surgery Progress Note: Results - Labs Result Diagrams: 09/01/17 05:29 09/01/17 05:29
[2017-09-02] MEDS: Ciprofloxacin 500 MG TAB PO SCH (20:37)
[2017-09-02] MEDS: Enoxaparin Sodium 40 MG/0.4 ML SYRINGE SC SCH (20:38)
[2017-09-02] MEDS: Docusate 100 MG CAP PO SCH (20:38)
[2017-09-02] MEDS ORDERED: Clopidogrel Bisulfate 75 MG TAB ONE (21:02)
[2017-09-03] MEDS: MEROPENEM 1 GM/50 ML 1 GM in Premix Bag 1 BAG IVPB SCH (03:33)
[2017-09-03] MEDS: ALPRAZolam 0.25 MG TAB PO PRN ×3 (03:34→16:10)
[2017-09-03] MEDS: Hyoscyamine Sulfate SL 0.125 mg Tablet SL PRN ×3 (03:34→16:10)
[2017-09-03] MEDS: Acetaminophen 500 MG TAB PO PRN ×2 (03:34→11:32)
[2017-09-03] MEDS: Ondansetron ODT 4 MG TAB PO PRN ×3 (03:34→16:10)
[2017-09-03 05:29] LABS: #Eosinphils 0.3 thou/uL (0.0-0.7); #Lymphocytes 2.1 thou/uL (1.20-3.40); #Monocytes 0.8 thou/uL (0.11-0.59); %Basophils 0.4 % (0.0-1.0); %Lymphocytes 20.1 % (21.0-51.0); %Monocytes 8.2 % (0.0-10.0); %Neutrophils 68.3 % (42.0-75.0); Hemoglobin 12.6 g/dL (12.0-16.0); Mean Corpuscular HGB CONC 33.3 g/dL (32.0-36.0); Mean Corpuscular Hemoglobin 32.2 pg (27.0-31.0); Mean Corpuscular Volume 96.4 fl (81.0-99.0); Platelet Count 405 thou/uL (130-400); RBC Distribution Width 12.6 % (11.5-14.5); Red Blood Cell (RBC) Count 3.91 mill/uL (4.20-5.40); White Blood Cell (WBC) Count 10.2 thou/uL (4.8-10.8)
[2017-09-03] MEDS: Ciprofloxacin 500 MG TAB PO SCH (05:43)
[2017-09-03] MEDS: Morphine 4 MG/ML VIAL SLOW IVP PRN (08:28)
[2017-09-03] MEDS: Docusate 100 MG CAP PO SCH (08:34)
[2017-09-03] MEDS: metroNIDAZOLE 500 MG TAB PO SCH ×2 (08:34→16:10)
[2017-09-03] MEDS: Pantoprazole 40 MG VIAL IVP SCH (08:35)
[2017-09-03] MEDS ORDERED: Polyethylene Glycol 3350 17 GM Packet PO SCH (09:00)
[2017-09-03 12:17] VITALS: BP 111/80; TEMP 98.2
== END 2017-09-03 16:20 | disposition home or self-care (01) | DRG 694 ==
LOC: ERS 13:51 → SURG B 15:45
PROVIDERS: ADMIT Surgery; ATTEND Surgery
PROC: 0T774DZ Dilation of Left Ureter with Intraluminal Device, Percutaneous Endoscopic Approach (ICD-10-PCS; principal; 2017-08-28)
DX: N13.1 Hydronephrosis with ureteral stricture, not elsewhere classified (principal); K57.20 Diverticulitis of large intestine with perforation and abscess without bleeding; R45.851 Suicidal ideations; F41.9 Anxiety disorder, unspecified; R33.9 Retention of urine, unspecified; K52.9 Noninfective gastroenteritis and colitis, unspecified; F17.210 Nicotine dependence, cigarettes, uncomplicated; Z86.73 Personal history of transient ischemic attack (TIA), and cerebral infarction without residual deficits; R35.0 Frequency of micturition
CPT/HCPCS: 36415; 74019; 74177; 74420; 80048; 80053; 81003; 81015; 82378; 83605; 83690; 85025; 87040; 96365; 96375; A4216; C1758; C1769; C9113; J1100; J1650; J2001; J2185; J2250; J2270; J2405; J2704; J3010; J7050; J7611; Q0162; Q9961

== ENCOUNTER 2017-09-29 12:40 | Outpatient (CLI) | payer OTHER ==
--- NOTE | 2017-09-29 15:20 | ULT ---
BILATERAL RENAL ULTRASOUND: Date: 09/29/17 HISTORY: Hydronephrosis. FINDINGS: The right kidney measures 11.1 cm in length and the left kidney measures 13.4 cm in length. No renal mass is seen on either side. No shadowing calculus is noted. No right-sided hydronephrosis is seen. T here is left-sided hydroureteronephrosis and the degree of the hydronephrosis is moderate and similar to that seen on the CT scan of 08/27/17. Post-void volume in the urinary bladder is 46 mL. IMPRESSION: Moderate left-sided hydroureteronephrosis. POS: JENNY
== END 2017-09-29 12:41 | disposition home or self-care (01) ==
LOC: ULT 12:40
PROVIDERS: ATTEND Surgery
DX: N13.30 Unspecified hydronephrosis (principal)
CPT/HCPCS: 76770

== ENCOUNTER 2018-12-12 00:35 | Emergency (ER) | payer SELFPAY ==
[2018-12-12] MEDS ORDERED: Ketorolac Tromethamine 30 MG/ML VIAL ONE (01:29)
--- NOTE | 2018-12-12 09:01 | ULT ---
PRELIMINARY REPORT/[facility]/EMERGENCY AFTER HOURS PROCEDURE: EXAM: US Duplex Left Lower Extremity Veins, Limited EXAM DATE/TIME: 12/12/2018 2:04 AM CLINICAL HISTORY: 63 years old, female; Other: Lle pain, swelling TECHNIQUE: Imaging protocol: Real-time Duplex ultrasound of the Left Lower Extremity with 2-D cardenas scale, color Doppler flow and spectral waveform analysis with image documentation. Limited exam focused on the lef t lower extremity veins. COMPARISON: US Venous Doppler Lt Unilat 12/08/2018 11:55 PM FINDINGS: Left deep veins: Unremarkable. The common femoral, femoral, proximal profunda femoral and popliteal v eins are patent without thrombus. Normal Doppler waveforms. Normal compressibility and/or augmentatio n response. Left superficial veins: Unremarkable. Saphenofemoral junction is patent without thrombus. Soft tissues: Unremarkable. IMPRESSION: No acute findings. No evidence of deep vein thrombosis. Thank you for allowing us to participate in the care of your patient. Dictated and Authenticated by: Faustino Nunes MD 12/12/2018 3:15 AM Central Time ([place] & [place]) FINAL REPORT EMERGENT AFTER HOURS LEFT LOWER EXTREMITY VENOUS DOPPLER: HISTORY: Left lower extremity pain and swelling. FINDINGS: Cardenas scale, color flow, Doppler evaluation, and spectral analysis of the left lower extremity venous structures is performed with 2D imaging. The left lower extremity common femoral, superficial femora l, popliteal, posterior tibial, most proximal greater saphenous, and profunda femoral veins are image d. There is normal lumen compressibility, flow, and augmentation in the visualized deep venous structure s left lower extremity. IMPRESSION: 1. No evidence of a deep vein thrombosis involving the visualized deep venous structures left lower extremity. 2. Findings are in agreement with the preliminary report by [facility]. POS: CHARLINE
== END 2018-12-12 02:54 | disposition home or self-care (01) ==
LOC: ERS 00:35
DX: M79.89 Other specified soft tissue disorders (principal); F17.210 Nicotine dependence, cigarettes, uncomplicated; Z71.6 Tobacco abuse counseling; Z86.73 Personal history of transient ischemic attack (TIA), and cerebral infarction without residual deficits
CPT/HCPCS: 96372; 99406; J1885

== ENCOUNTER 2019-04-02 10:53 | Emergency (ER) | payer SELFPAY | END 2019-04-02 12:17 | disposition home or self-care (01) | LOC: ERS 10:53 | DX: L98.9 Disorder of the skin and subcutaneous tissue, unspecified (principal); F17.210 Nicotine dependence, cigarettes, uncomplicated; Z86.73 Personal history of transient ischemic attack (TIA), and cerebral infarction without residual deficits | CPT/HCPCS: 99282 ==

== ENCOUNTER 2019-06-23 20:17 | Inpatient (IN) | payer SELFPAY ==
[~2019-06-23 20:17] MED LIST changes: +Heparin 1,000 UNITS/ML VIAL ONE; -ISOVUE-370 76%-LOCM 1 ML ONE; +Iopamidol-370 76% 500 ML 1 ML ONE
[2019-06-23] MEDS ORDERED: Ondansetron PF 4 MG/2 ML Vial ONE (20:45)
[2019-06-23] MEDS ORDERED: Ketorolac Tromethamine 30 MG/ML VIAL ONE (20:45)
--- NOTE | 2019-06-23 21:21 | CT ---
CT ABDOMEN AND PELVIS WITH IV CONTRAST: 06/23/19 HISTORY: Generalized abdominal pain more severe in the lower abdomen with nausea. COMPARISON: 08/27/17. The lung bases are clear. There is cholelithiasis. A small hiatal hernia is present. The spleen, panc reas, adrenal glands and right kidney are normal. There is sigmoid diverticulosis with thickening of the wall of the sigmoid colon and pericolonic inflammatory changes in the pelvis. This engulfs the di stal left ureter causing left hydroureteronephrosis. The uterus is present. There are vascular calcifications without evidence of aneurysmal dilatation of the abdominal aorta. There are degenerative changes and levoscoliosis of the lumbar spine. A normal appearing appendix is present. IMPRESSION: 1. Cholelithiasis. 2. Sigmoid diverticulitis causing involvement of the distal ureter and left sided hydroureterone phrosis. POS: OFF
[2019-06-23] MEDS ORDERED: metroNIDAZOLE 500 MG/100 ML BAG ONE (22:47)
[2019-06-23] MEDS ORDERED: HYDROcodone/Acetaminophen 5/325 mg Tablet PO PRN (23:02)
[2019-06-23] MEDS ORDERED: Acetaminophen 325 MG TAB PO PRN (23:02)
[2019-06-23] MEDS ORDERED: HYDROcodone/Acetaminophen 10/325 mg Tablet PO PRN (23:02)
[2019-06-23] MEDS ORDERED: Nicotine 14 MG PATCH TD PRN (23:02)
--- NOTE | 2019-06-23 23:10 | PDOC.HHP ---
Hospitalist HPI - History of Present Illness Abdominal pain; Fever History of Present Illness: 63 yo female with no significant PMH presented to [facility] due to abdominal and chest pain, fever and chills. She states that she felt her rib pop about 1 week ago and thinks it is fractured. She also started experiencing fever, chills and abdominal pain yesterday. Described abdominal pain as 6/10 intensity in lower abdomen without radiation that is throbbing in nature. Aggravated with movement and relieved partially with rest. Associated with nausea but no vomiting, diarrhea or constipation. Reports lightheadedness. No SOB, cough, wheezing, palpitations, burning or pain with urination. No swelling in legs or rash or bruising. No headaches. Denies sick contacts or recent travel history. ED Course: Had CT abd/pelvis which found diverticulitis causing hydroureteronephrosis. Given IV ABX and IVF and being admitted. 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 Gastrointestinal: reports: Diverticulosis Heme/Onc: reports: no pertinent history Hepatobiliary: reports: no pertinent history Psych: reports: Anxiety Musculoskeletal: reports: no pertinent history Rheumatologic: reports: no pertinent history Infectious Disease: reports: no pertinent history ENT: reports: no pertinent history Renal/: reports: no pertinent history Endocrine: reports: no pertinent history Dermatology: reports: no pertinent history - Past Surgical History Other Surgical History: Tubal surgery - Family History Family History: reports: no pertinent history (reviewed) - Social History Smoking Status: Current every day smoker Tobacco Type: cigarettes (1 pack daily) Alcohol: reports: None Drugs: reports: none Living Situation: Roommate Activity level: independent ambulation - Exam General Appearance: awake alert, ill appearing Eye: PERRL, anicteric sclera ENT: normocephalic atraumatic, no oropharyngeal lesions, dry oral mucosa Neck: supple, symmetric, no JVD, no thyromegaly, no lymphadenopathy Heart: RRR, no murmur, no gallops, no rubs, normal peripheral pulses Respiratory: CTAB, no wheezes, no rales, no ronchi, normal chest expansion, no tachypnea, normal percussion Respiratory - other findings: tender to palpation over right lower chest Gastrointestinal: soft, non-distended, normal bowel sounds, no bruit, no guarding, no rigidity, tender to palpation (RLQ; Rebound tenderness present) Extremities: no cyanosis, no clubbing, no edema Skin: no lesions, no rashes Skin - other findings: skin is warm and dry to touch Neurological: cranial nerve grossly intact, normal sensation to touch, no weakness, no focal deficits Musculoskeletal: normal tone, normal strength, no muscle wasting Psychiatric: normal affect, normal behavior, A&O x 3 Hospitalist Results - Labs Lab results: Lactic Acid 1.5 mmol/L (0.5-2.2) 06/23/19 20:53 Labs from [facility] reviewed WBC of 11.9; Hb of 16.4 Na of 132; K of 3.5; BUN 8 & Cr. 0.8 - EKG Interpretation EKG: Personally reviewed - Sinus tachycardia; No ST-T changes concerning for ischemia - Radiology Interpretation CT scan - abdomen Status: image reviewed by me (Cholelithiasis; Sigmoid diverticulitis; Left hydroureteronephrosis) Hospitalist H&P A/P - Problem (1) Diverticulitis Code(s): K57.92 - DVTRCLI OF INTEST, PART UNSP, W/O PERF OR ABSCESS W/O BLEED Status: Acute Assessment and Plan: Admit to inpatient status. Expected to stay at least 2 midnights High risk due to need for IV ABX, IVF and risk of septic shock and possible need for inpatient urological intervention IV rocephin and flagyl Regular diet for now IV fluid resuscitation Adequate pain control (2) Hydroureteronephrosis Code(s): N13.30 - UNSPECIFIED HYDRONEPHROSIS Status: Acute Assessment and Plan: Related to Diverticulitis Urology consult May need percutaneous nephrostomy vs stent placement vs observation for resolution of hydro with IV Abx for diverticulitis Will follow urology recommendations (3) Tobacco abuse Code(s): Z72.0 - TOBACCO USE Status: Chronic Assessment and Plan: Counselled regarding cessation Patient willing to quit smoking Nicoderm PRN (4) Rib pain on right side Code(s): R07.81 - PLEURODYNIA Status: Acute Assessment and Plan: Concern for rib fractures Will obtain CT chest to evaluate the same Lidoderm patch PO pain meds - Plan Plan: CODE STATUS - FULL CODE
[2019-06-23] MEDS ORDERED: Naloxone HCl 0.4 mg/ml Vial SC PRN (23:20)
[2019-06-23] MEDS ORDERED: Morphine 2 MG/ML SYRINGE SLOW IVP PRN (23:20)
[2019-06-23] MEDS ORDERED: Lidocaine 5% Patch TD SCH (23:30)
[2019-06-24] MEDS: Sodium Chloride 0.9% 1,000 ML IV SCH ×2 (01:05→02:30)
[2019-06-24 01:10] VITALS: BMI 19.2
[2019-06-24] MEDS ORDERED: HYDROcodone/Acetaminophen 10/325 mg Tablet PO PRN (01:59)
[2019-06-24] MEDS ORDERED: HYDROcodone/Acetaminophen 5/325 mg Tablet PO PRN (02:00)
[2019-06-24] MEDS: Morphine 2 MG/ML SYRINGE SLOW IVP PRN ×4 (04:04→20:17)
[2019-06-24] MEDS: NS 0.9% w/ 20 MEQ KCL 1,000 ML/1,000 ML BAG IV SCH ×4 (04:15→17:23)
[2019-06-24] MEDS: metroNIDAZOLE 500 MG in Premix Bag 1 BAG IVPB SCH ×3 (05:25→22:00)
[2019-06-24 05:55] LABS: #Lymphocytes 0.5 thou/uL (1.20-3.40); #Monocytes 0.7 thou/uL (0.11-0.59); #Neutrophils 8.2 thou/uL (1.40-6.50); %Basophils 0.1 % (0.0-1.0); %Eosinophils 0.1 % (0.0-10.0); %Lymphocytes 5.1 % (21.0-51.0); %Monocytes 7.1 % (0.0-10.0); %Neutrophils 87.7 % (42.0-75.0); Hemoglobin 13.7 g/dL (12.0-16.0); Mean Corpuscular HGB CONC 32.3 g/dL (32.0-36.0); Mean Corpuscular Hemoglobin 31.7 pg (27.0-31.0); Mean Corpuscular Volume 98.3 fL (78.0-98.0); Mean Platelet Volume 6.7 fL (7.4-10.4); Platelet Count 170 thou/uL (130-400); RBC Distribution Width 12.3 % (11.5-14.5); Red Blood Cell (RBC) Count 4.33 mill/uL (4.20-5.40); White Blood Cell (WBC) Count 9.4 thou/uL (4.8-10.8)
[2019-06-24 06:10] LABS: ALT (SGPT) 19 U/L (8-55); AST (SGOT) 21 U/L (5-34); Albumin 3.2 g/dL (3.4-4.8); Alkaline Phosphatase 87 U/L (40-110); Anion Gap 11 mmol/L (10-20); BUN (Urea Nitrogen) 8 mg/dL (9.8-20.1); Bilirubin, Total 0.5 mg/dL (0.2-1.2); Calc. Creatinine Clearance 75 mL/min (70-130); Carbon Dioxide 24 mmol/L (23-31); Chloride 106 mmol/L (98-107); Estimated GFR-MDRD 89; Globulin 3.1 g/dL (2.4-3.5); Glucose 137 mg/dL (80-115); Potassium 3.5 mmol/L (3.5-5.1); Protein, Total 6.3 g/dL (6.0-8.3); Sodium 137 mmol/L (136-145)
[2019-06-24] MEDS: cefTRIAXone\\ROCEPHIN 2 GM in Sodium Chloride 0.9% 100 ML IVPB SCH (09:03)
[2019-06-24] MEDS: Heparin 5,000 UNITS/ML VIAL SC SCH ×3 (09:04→20:16)
[2019-06-24] MEDS: Lidocaine Patch Removal 1 EACH TOP SCH (09:06)
[2019-06-24] MEDS: Senokot S 8.6-50 MG TAB PO PRN (12:19)
[2019-06-24] MEDS ORDERED: Fioricet 325/50/40 mg Tablet PO PRN (16:23)
--- NOTE | 2019-06-24 16:28 | PDOC.HOSPP ---
- Subjective Subjective: Seen and examined on the medical unit. Complain of headache, neck ache, and back pain. Denies abdominal pain. Denies UTI symptoms. Denies diarrhea. Time was given for questions, all answered in detail. Patient states that headache has been going on for over a week. She normally drinks caffeine daily and has not had any in a few days. - Objective Vital Signs & Weight: Vital Signs (12 hours) Temp Pulse Resp BP Pulse Ox 06/24/19 16:19 99.3 F 88 16 136/83 94 L 06/24/19 12:12 16 94 L 06/24/19 11:53 100.2 F H 106 H 18 152/83 H 90 L 06/24/19 09:05 93 L 06/24/19 07:43 99.1 F 99 16 156/83 H 93 L 06/24/19 07:27 103.0 F H 123 H 18 162/90 H 94 L 06/24/19 05:03 121 H 24 H 93 L 06/24/19 04:49 116 H 22 H 170/80 H 95 Weight Admit Weight 119 lb 2 oz Weight 119 lb 2 oz Result Diagrams: 06/24/19 05:40 06/24/19 05:40 Radiology Reviewed by me: Yes Hospitalist ROS - Review of Systems All other systems reviewed; all pertinent +/- noted in HPI/Subj - Medication Medications: Active Medications Generic Name Dose Route Start Last Admin Trade Name Freq PRN Reason Stop Dose Admin Heparin Sodium (Porcine) 5,000 units 06/24/19 09:00 06/24/19 14:59 Heparin SC Not Given TID NANCY Metronidazole 500 mg/ Device 100 mls @ 100 mls/hr 06/24/19 06:00 06/24/19 14: 58 IVPB 100 mls Q8HR NANCY Administration Ceftriaxone Sodium 2 gm/ 100 mls @ 200 mls/hr 06/24/19 08:00 06/24/19 09:03 Sodium Chloride IVPB 100 mls Q24HR NANCY Administration Miscellaneous Medication 1 each 06/24/19 09:00 06/24/19 09:06 Lidocaine Patch Removal TOP 1 each 0900 NANCY Administration Morphine Sulfate 2 mg 06/24/19 02:00 06/24/19 16:16 Morphine SLOW IVP 2 mg Q4H PRN Administration Severe Pain (7-10) Senna/Docusate Sodium 2 tab 02/20/20 23:02 06/24/19 12:19 Senokot S PO 2 tab BID PRN Administration Constipation - Exam General Appearance: NAD, awake alert Eye: anicteric sclera ENT: normocephalic atraumatic, moist mucosa Neck: supple, symmetric, no lymphadenopathy Heart: no murmur, no gallops, no rubs Respiratory: CTAB, no wheezes, no rales, no ronchi, normal chest expansion Gastrointestinal: soft, non-tender, non-distended, normal bowel sounds, no guarding, no rigidity Extremities: no edema Skin: no rashes Neurological: cranial nerve grossly intact, no focal deficits Musculoskeletal: no muscle wasting, generalized weakness Psychiatric: normal affect, normal behavior, A&O x 3 Hosp A/P (1) Panic attack Code(s): F41.0 - PANIC DISORDER [EPISODIC PAROXYSMAL ANXIETY] Status: Acute (2) Hydroureteronephrosis Code(s): N13.30 - UNSPECIFIED HYDRONEPHROSIS Status: Acute (3) Rib pain on right side Code(s): R07.81 - PLEURODYNIA Status: Acute (4) Tobacco abuse Code(s): Z72.0 - TOBACCO USE Status: Chronic (5) Diverticulitis Code(s): K57.92 - DVTRCLI OF INTEST, PART UNSP, W/O PERF OR ABSCESS W/O BLEED Status: Acute (6) Hydronephrosis of left kidney Code(s): N13.30 - UNSPECIFIED HYDRONEPHROSIS Status: Acute (7) Hydroureter on left Code(s): N13.4 - HYDROURETER Status: Acute (8) Sepsis Code(s): A41.9 - SEPSIS, UNSPECIFIED ORGANISM Status: Acute (9) Fever Code(s): R50.9 - FEVER, UNSPECIFIED Status: Acute (10) Tachycardia Code(s): R00.0 - TACHYCARDIA, UNSPECIFIED Status: Acute - Plan Plan: medical unit urology consultation, recommendations appreciated surgery consultation, recommendations appreciated broad-spectrum IV antibiotics blood culture urine culture de-escalate to culture and sensitivity as able pain control blood pressure control blood sugar control continue other home medications as able G.I. prophylaxis DVT prophylaxis
[2019-06-24] MEDS ORDERED: Sodium Chloride 0.65% Nasal 44 ML BOT EA NARE PRN (18:24)
[2019-06-24] MEDS ORDERED: Fluticasone Propionate Nasal Spray 16 gm Bottle NASAL PRN (18:25)
[2019-06-24] MEDS: Lidocaine 5% Patch TD SCH (20:29)
--- NOTE | 2019-06-24 21:08 | CON ---
DATE OF CONSULTATION: 06/24/2019 CONSULTING: Dr. Verma. CONSULTED: Dr. Obrien. REASON FOR CONSULTATION: Hydronephrosis. HISTORY OF PRESENT ILLNESS: Ms. Jones is a 63-year-old white female, who has a long history of colitis and colonic issues, which previously has been managed by Dr. Smallwood. She also has history of rib fractures, which has been ongoing for many years. Both issues are chronic and long-standing. She states that she felt a rib pop about a week ago and thinks that it may be fractured again. She also began experiencing fevers and chills as well as lower abdominal pain in the hypogastric area, rated about 6/10. It was associated with nausea but no vomiting, diarrhea, or constipation. She was feeling weak, lightheaded and had malaise, but denied shortness of breath, chest pain, wheezing, palpitations, hematuria, flank pain, back pain, difficulty urinating or dysuria. She came to the emergency room, where she underwent a CT scan which demonstrated severe left hydronephrosis and hydroureter on the left going down to an area of sigmoid diverticulitis which was heavily inflamed and scarred. There was also noted cholelithiasis, which did not appear to be actively an issue. She was admitted to the hospital and started on IV antibiotics, which she is currently receiving. On my discussion with the patient, she again denies any urinary complaints as stated above. She states these problems have been going on for a long time and that Dr. Smallwood had planned for her to undergo definitive surgery by removing the diseased section of sigmoid colon. However, the patient was requested to have a colonoscopy. Due to the amount of scarring within her colon, a colonoscopy was not able to be performed locally, so she was sent out to a different facility to have a colonoscopy done with a smaller scope. Unfortunately, the patient never went to go do this and was ultimately lost to follow up despite Dr. Smallwood urging her to do so. At the current time, the patient does state that Dr. Smallwood had planned for a surgical intervention to remove the diseased portion of the sigmoid colon, but this has not yet occurred. ALLERGIES: 1. CODEINE. 2. HYDROCODONE. 3. PENICILLIN. 4. SULFA. HOME MEDICATIONS: 1. Xanax. 2. Tylenol. PAST MEDICAL HISTORY: 1. Anxiety. 2. History of gastroesophageal reflux, which resolved with weight loss. 3. Colitis. PAST SURGICAL HISTORY: 1. Ectopic requiring surgery. 2. Tubal ligation. 3. Ureteral stent [place] [address] Machado. SOCIAL HISTORY: The patient rarely smokes, but does have a few cigarettes here and there. She does not abuse alcohol or illicit drugs. 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 FAMILY HISTORY: Noncontributory. REVIEW OF SYSTEMS: A 12-point review of system was reviewed with the patient and negative other than what was commented on the HPI. PHYSICAL EXAMINATION: VITAL SIGNS: Temperature 99.3, pulse 88, respirations 16, blood pressure 136/83, saturation 94% on room air. GENERAL: No apparent distress. The patient is communicative and alert, appears stated age, well nourished, well developed. Build is average sized. HEENT: Normocephalic, atraumatic. Pupils are symmetric and round. The patient wears glasses. Moist mucous membranes. Trachea midline. CARDIOVASCULAR: Regular rate and rhythm. Normal S1, S2. Symmetric pulses. CHEST: No increased work of breathing. Symmetric expansion. LUNGS: Clear anteriorly. ABDOMEN: Soft, nondistended, tender to palpation in the lower abdomen. There is mild guarding. No rebound or obvious peritoneal signs. No CVA tenderness. : Deferred at this time. EXTREMITIES: No clubbing, cyanosis, or edema. MUSCULOSKELETAL: No obvious joint deformities or joint erythema noted except at the spine, which has some moderate degree of scoliosis. NEUROLOGIC: Cranial nerves 2 through 12 appear grossly intact. No focal or sensory motor deficits identified. PSYCHIATRIC: Alert and oriented x3. Appropriate mood and affect. SKIN: Warm and dry, poor turgor. No rashes or lesions. PSYCHIATRIC: Alert and oriented x3. Appropriate mood and affect. LABORATORY EVALUATION: Full set of labs are in the [employer] system, which I have reviewed. Of note, the patient's white count is 9.4 with a hemoglobin of 13.7, platelets of 170. Creatinine is 0.67. CT of the abdomen and pelvis done on the with contrast demonstrates sigmoid diverticulitis causing involvement of the distal left ureter with left hydroureteronephrosis, which appears severe. There is tortuosity of the ureter on its way from the kidney to the bladder. There is significant vascular calcifications without evidence of aneurysmal dilatation of the abdominal aorta. There is also some levoscoliosis of the lumbar spine. ASSESSMENT AND PLAN: A 63-year-old white female with severe hydroureteronephrosis on the left, going down to an area of significant scarring on her sigmoid colon which is likely inflamed with diverticulitis. The patient will probably require some kind of surgical intervention for this at some point. In the meantime, I have told the patient that there are options to temporarily decompress her kidney with either a nephrostomy tube or stent. The patient does recall her stent from 2018 and states it was so terrible that she would not want to have a stent again under any circumstance. She contemplated a nephrostomy tube but if the patient is going to go for surgery for sigmoid colectomy within the next few weeks, I think we could hold off on nephrostomy tube placement and consider ureteral reimplantation at the same time as a sigmoidectomy. However, if the patient is going to be managed nonoperatively or if surgery is going to be delayed significantly more than 2 to 3 weeks in order for her to get a colonoscopy first, I would give strong consideration to either ureteral stent or nephrostomy tube for urinary drainage to try and protect the kidney. Without urinary drainage, the patient risks pyelonephritis or chronic renal decline or renal dysfunction, which may already be present given the possible longstanding nature of the colonic inflammatory process and what appears to be a chronic longstanding process of hydronephrosis. It is already likely that the left kidney works less effectively than the right. However, there is no significant parenchymal loss noted on CT scan. Ultimately, I would like to see what Dr. Smallwood's input is regarding when she would plan for surgical intervention on this patient and then make appropriate decisions regarding her urinary drainage based on surgical plans. I believe Dr. Dang is on-call this weekend and will see the patient and Dr. Smallwood instead, but we would wait for definitive plans. I will continue to follow along and make recommendations in the meantime. Otherwise, there is no immediate intervention at this time as the patient has no evidence of renal dysfunction and is currently asymptomatic from a standpoint. Job ID: [id number]
[2019-06-24] MEDS: Acetaminophen 500 MG TAB PO PRN (23:31)
[2019-06-24] MEDS: Ondansetron PF 4 MG/2 ML Vial IVP PRN (23:36)
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
[2019-06-25] MEDS: Morphine 2 MG/ML SYRINGE SLOW IVP PRN ×3 (00:22→08:28)
[2019-06-25] MEDS: metroNIDAZOLE 500 MG in Premix Bag 1 BAG IVPB SCH (04:49)
[2019-06-25 06:30] LABS: #Lymphocytes 0.9 thou/uL (1.20-3.40); #Monocytes 1.1 thou/uL (0.11-0.59); #Neutrophils 6.9 thou/uL (1.40-6.50); %Basophils 0.3 % (0.0-1.0); %Eosinophils 0.2 % (0.0-10.0); %Lymphocytes 9.7 % (21.0-51.0); %Monocytes 11.9 % (0.0-10.0); %Neutrophils 77.9 % (42.0-75.0); Mean Corpuscular Hemoglobin 34.2 pg (27.0-31.0); Mean Corpuscular Volume 97.8 fL (78.0-98.0); Mean Platelet Volume 6.9 fL (7.4-10.4); Platelet Count 151 thou/uL (130-400); RBC Distribution Width 11.9 % (11.5-14.5); White Blood Cell (WBC) Count 8.9 thou/uL (4.8-10.8)
[2019-06-25 06:48] LABS: Anion Gap 8 mmol/L (10-20); BUN (Urea Nitrogen) 5 mg/dL (9.8-20.1); Calc. Creatinine Clearance 90 mL/min (70-130); Calcium 8.7 mg/dL (7.8-10.44); Carbon Dioxide 29 mmol/L (23-31); Chloride 100 mmol/L (98-107); Estimated GFR-MDRD Greater than 90; Glucose 110 mg/dL (80-115); Potassium 3.3 mmol/L (3.5-5.1); Sodium 134 mmol/L (136-145)
[2019-06-25] MEDS: Heparin 5,000 UNITS/ML VIAL SC SCH ×3 (08:16→20:05)
[2019-06-25] MEDS: Lidocaine Patch Removal 1 EACH TOP SCH (08:16)
[2019-06-25] MEDS: cefTRIAXone\\ROCEPHIN 2 GM in Sodium Chloride 0.9% 100 ML IVPB SCH (08:20)
[2019-06-25] MEDS: Ondansetron PF 4 MG/2 ML Vial IVP PRN (08:30)
[2019-06-25] MEDS: Acetaminophen 500 MG TAB PO PRN ×2 (10:08→17:03)
[2019-06-25] MEDS: NS 0.9% w/ 20 MEQ KCL 1,000 ML/1,000 ML BAG IV SCH (10:16)
--- NOTE | 2019-06-25 11:17 | PDOC.HOSPP ---
- Subjective Encounter Date: 06/25/19 Subjective: Says she is feeling better now that she knows she was feeling bad due to the Flagyl. Says she is allergic to it. She understands the current situation and does not want to pursue nephrostomy tube drainage. - Objective Vital Signs & Weight: Vital Signs (12 hours) Temp Pulse Resp BP Pulse Ox 06/25/19 08:00 99.1 F 88 18 142/82 H 94 L 06/25/19 04:35 99 F 91 16 163/94 H 94 L 06/24/19 23:57 88 16 94 L 06/24/19 23:50 99.8 F H 93 16 177/96 H 92 L Weight Admit Weight 119 lb 2 oz Weight 119 lb 2 oz I&O: 06/24/19 06/25/19 06/26/19 06:59 06:59 06:59 Intake Total 1700 Balance 1700 Result Diagrams: 06/25/19 06:02 06/25/19 06:02 Hospitalist ROS - Medication Medications: Active Medications Generic Name Dose Route Start Last Admin Trade Name Freq PRN Reason Stop Dose Admin Acetaminophen 1,000 mg 06/24/19 16:25 06/25/19 10:08 Tylenol PO 1,000 mg Q6H PRN Administration Headache/Fever or Pain Albuterol/Ipratropium 3 ml 06/24/19 04:32 06/24/19 23:57 Duoneb NEB 3 ml [id number] PRN Administration SOB &/or Wheezing Heparin Sodium (Porcine) 5,000 units 06/24/19 09:00 06/25/19 08:16 Heparin SC 5,000 units TID NANCY Administration Potassium Chloride/Sodium Chloride 1,000 ml in 1,000 mls @ 50 mls/hr 06/24/19 16:23 06/25/19 10:16 Ns 0.9% W/ 20 Meq Kcl IV 1,000 mls .Q20H NANCY Administration Lidocaine 1 patch 06/24/19 21:00 06/24/19 20:29 Lidoderm 5% Patch TD 1 patch 2100 NANCY Administration Miscellaneous Medication 1 each 06/24/19 09:00 06/25/19 08:16 Lidocaine Patch Removal TOP 1 each 0900 NANCY Administration Morphine Sulfate 2 mg 06/24/19 02:00 06/25/19 08:28 Morphine SLOW IVP 2 mg Q4H PRN Administration Severe Pain (7-10) Ondansetron HCl 4 mg 06/23/19 23:02 06/25/19 08:30 Zofran IVP 4 mg Q6H PRN Administration Nausea/Vomiting Senna/Docusate Sodium 2 tab 06/23/19 23:02 06/24/19 12:19 Senokot S PO 2 tab BID PRN Administration Constipation - Exam General Appearance: NAD, awake alert Heart: RRR, no murmur, no gallops, no rubs, normal peripheral pulses Respiratory: CTAB, no wheezes, no rales, no ronchi, normal chest expansion, no tachypnea, normal percussion Gastrointestinal: soft, non-tender, non-distended, normal bowel sounds, no palpable masses, no hepatomegaly, no splenomegaly, no bruit Extremities: no cyanosis, no clubbing, no edema Skin: normal turgor Musculoskeletal: normal tone, normal strength, no muscle wasting Psychiatric: normal affect, normal behavior, A&O x 3 Hosp A/P (1) Hydroureteronephrosis Code(s): N13.30 - UNSPECIFIED HYDRONEPHROSIS Status: Acute (2) Diverticulitis Code(s): K57.92 - DVTRCLI OF INTEST, PART UNSP, W/O PERF OR ABSCESS W/O BLEED Status: Acute (3) Hydroureter on left Code(s): N13.4 - HYDROURETER Status: Acute (4) Rib pain on right side Code(s): R07.81 - PLEURODYNIA Status: Acute (5) Sepsis Code(s): A41.9 - SEPSIS, UNSPECIFIED ORGANISM Status: Acute (6) Tachycardia Code(s): R00.0 - TACHYCARDIA, UNSPECIFIED Status: Acute (7) Tobacco abuse Code(s): Z72.0 - TOBACCO USE Status: Chronic (8) Hypokalemia Code(s): E87.6 - HYPOKALEMIA Status: Acute - Plan Chronic diverticular dz with occlusion of the left ureter and resultant hydroureter. Preserved renal function and left renal parenchyma on CT. Diverticular disease can be treated with po abx. Will make that conversion to Clinda and Cipro give her allergy profile. She has taken these before without problems. She understands the risks v benefits of nephrostomy drainage and she is comfortable awaiting definitive treatment at the time of surgery. She refuses stent. Will change to oral abx today and plan to DC in am. She does not feel comfortable going until she is stable on po abx. Does not have what she needs at home today. Replace potassium. Plan is for FU with Dr. Hernandez, OP colonoscopy with smaller scope, surgery for diverticular stricture and ureteral re-implantation at that time.
--- NOTE | 2019-06-25 11:54 | PRG ---
DATE OF SERVICE: 06/25/2019 SUBJECTIVE: The patient states she is feeling okay. She had a very bad headache yesterday and attributed to receiving Flagyl, which she states that she is allergic to. This has now been discontinued and she has been switched to clindamycin. She states she is feeling a little bit better, but still has the lower abdominal pain and some rib pain. She was seen by Dr. Dang yesterday, who recommended a non-operative approach at the current time as there was no strong indication for surgical intervention immediately. OBJECTIVE: VITAL SIGNS: Temperature 99.1, pulse 88, respirations 18, blood pressure 142/82, and saturation 94% on room air. GENERAL: No apparent distress. Communicative and alert. CARDIOVASCULAR: Regular rate and rhythm. CHEST: No increased work of breathing. Symmetric expansion of lungs. ABDOMEN: Soft and nondistended. Mild tenderness to palpation in the left lower quadrant and suprapubic area. No significant CVA tenderness. EXTREMITIES: No edema. : Deferred at this time. LABORATORY EVALUATION: The full set of labs are in the [employer] system, which I have reviewed. Of note, the patient's white count is 8.9 and hemoglobin of 12. Creatinine is 0.56. ASSESSMENT AND PLAN: A 63-year-old white female with severe diverticulitis which appears to be chronic with significant scarring, resulting in left chronic hydronephrosis, which apparently has been going on since 2018. Dr. Machado had previously put a stent in her at that time, which she did not tolerate at all. I did offer her to follow up with Dr. Machado again as an outpatient, but she states that she would rather follow up with me at this point, which is fine. The patient needs to have a colonoscopy done before she can have a sigmoidectomy. During the sigmoidectomy would be ideal time to consider ureteral reimplantation, which will likely be necessary to correct the chronic scarring, which has involved her left distal ureter. I have talked to the patient about this surgery and she states that she would want to proceed with this plan, but again she will need a colonoscopy done 1st. Additionally, there is no strong indication that she needs urinary drainage at this time. It appears that her hydronephrosis has been going on since 2018, and at this point, a few week difference is not going to make any long-term changes to her renal function if she chooses to get a nephrostomy tube immediately versus a few weeks later. I would not recommend long-term lack of drainage or she may ultimately lose function of her left kidney to the point where the kidney is completely nonfunctional and unsalvageable. She understands this and states that she will keep her followup appointments for now. I do not think that she needs a nephrostomy tube. She has adamantly refused ureteral stent, but she does need to keep followup appointments as planned with myself and Dr. Smallwood to coordinate definitive surgery once she receives her colonoscopy. She also did mention that she has a fairly significant vaginal prolapse. It is unclear whether or not this would be able to be corrected at the same time or other surgeries, but I recommended that she see an [employer] [facility] [facility] about this to discuss her options as implantation of mesh would not be advisable during a sigmoidectomy with open bladder reconstruction. Job ID: [id number]
--- NOTE | 2019-06-25 12:14 | PRG ---
DATE OF SERVICE: 06/25/2019 CHIEF COMPLAINT: "I know why I had a headache." HISTORY OF PRESENT ILLNESS: The patient is hospital day 2 for several issues amongst them, rib pain, back pain, headache, and left lower quadrant pain. She states that she is allergic to Flagyl, which is what gave her the headache. Her antibiotics have subsequently been adjusted and she states she is feeling better. She denies any abdominal pain. She is hungry and ordering lunch. She states that she declined any urologic intervention at this time. REVIEW OF SYSTEMS: Negative for 10 system, 2 point per system. PHYSICAL EXAMINATION: VITAL SIGNS: Temperature 99.1, blood pressure 142/82, and heart rate 88. GENERAL: No apparent distress. HEAD: Normocephalic and atraumatic. NECK: Supple, midline trachea. HEART: Regularly regular. LUNGS: Grossly clear to auscultation bilaterally. ABDOMEN: Soft, nontender, and nondistended. Normoactive bowel sounds. EXTREMITIES: Full range of motion without deformity. LABORATORY DATA: White blood cell count 8.9. I reviewed the notes from Urology. No intervention at this time. ASSESSMENT: Chronic diverticulosis of the sigmoid colon with ureteral narrowing and left hydronephrosis-the patient is clinically stable and not having any pain. Her labs are within normal. I do not think that there will be any surgical intervention during this hospitalization; therefore, the patient may be discharged with followup with Dr. Smallwood. I spoke with the patient about maintaining followup as this was the similar situation that happened a year and a half ago. In order to preserve her renal function, we need to proceed with repair. The patient voices understanding. PLAN: Discharge per Hospitalist Service. Follow up with Dr. mSallwood as an outpatient. Job ID: [id number]
[2019-06-25] MEDS: Clindamycin 150 MG CAP PO SCH ×2 (12:17→17:04)
[2019-06-25] MEDS: Senokot S 8.6-50 MG TAB PO PRN (20:03)
[2019-06-25] MEDS: Ciprofloxacin 500 MG TAB PO SCH (20:04)
[2019-06-25] MEDS: Lidocaine 5% Patch TD SCH (20:05)
[2019-06-25] MEDS: Ketorolac Tromethamine 30 MG/ML VIAL IVP PRN (21:49)
[2019-06-26] MEDS: Clindamycin 150 MG CAP PO SCH ×5 (00:04→23:10)
[2019-06-26] MEDS: Ciprofloxacin 500 MG TAB PO SCH ×2 (05:53→21:24)
[2019-06-26] MEDS: NS 0.9% w/ 20 MEQ KCL 1,000 ML/1,000 ML BAG IV SCH (06:01)
[2019-06-26] MEDS: Lidocaine Patch Removal 1 EACH TOP SCH (08:13)
[2019-06-26] MEDS: ALPRAZolam 0.25 MG TAB PO PRN ×2 (08:22→21:23)
[2019-06-26] MEDS: Senokot S 8.6-50 MG TAB PO PRN (08:27)
[2019-06-26] MEDS: Heparin 5,000 UNITS/ML VIAL SC SCH ×3 (09:00→21:13)
--- NOTE | 2019-06-26 12:01 | PRG ---
DATE OF SERVICE: 06/26/2019 SUBJECTIVE: The patient is feeling okay. She still feels a little bit bad with some pain in her lower abdomen and back. She also has a little bit of a headache, but she states overall she feels better than she did before. OBJECTIVE: VITAL SIGNS: Temperature 98.5, pulse 91, respirations 20, blood pressure 168/93, saturation 95% on room air. GENERAL: In no apparent distress. Communicative and alert. CARDIOVASCULAR: Regular rate and rhythm. ABDOMEN: Soft, mildly tender to palpation in the lower abdomen, nondistended. Positive bowel sounds. EXTREMITIES: No edema. LABORATORY EVALUATION: Full set of labs are in the [employer] system, which I have reviewed. Of note, there are no new labs today to review. ASSESSMENT AND PLAN: A 63-year-old white female with chronic diverticulitis resulting in significant scarring of both the colon as well as the left ureter resulting in severe hydronephrosis. The patient will ultimately need likely a sigmoidectomy and left ureteral reimplantation. Dr. Smallwood is her primary surgeon, and I will need to coordinate care with Dr. Smallwood for ureteral reimplantation at the time of sigmoidectomy is performed. From my standpoint, we have discussed nephrostomy tube, and the patient has elected not to proceed with anything at this time, which I think is very reasonable. She has had chronic hydronephrosis for 2 years now, and I do not think that emergent drainage is necessary. Should she gets severe flank pain, evidence of renal failure or have severe pain on her left flank, these would be indications for nephrostomy tube placement at that time. However, I will go ahead and wait for now until she is scheduled for her surgery with Dr. Smallwood; at which time, we can coordinate doing her ureteral reimplantation at the same time. I will sign off for now as the patient is probably going to be discharged here very shortly. She will need to follow up with me as an outpatient, and I have given her my card and contact information to schedule followup. Job ID: [id number]
[2019-06-26] MEDS: traMADol HCl 50 MG TAB PO PRN (13:47)
[2019-06-26] MEDS: Acetaminophen 500 MG TAB PO PRN ×2 (16:26→22:47)
[2019-06-26] MEDS: Lidocaine 5% Patch TD SCH (21:18)
--- NOTE | 2019-06-26 22:17 | PDOC.HOSPP ---
- Subjective Encounter Date: 06/26/19 Subjective: Feeling ok. Has some modest abd. distention. Had BM's today. Concerned there might be some blood. Otherwise, feels ok. - Objective Vital Signs & Weight: Vital Signs (12 hours) Temp Pulse Resp BP BP Pulse Ox 06/26/19 20:00 98.0 F 85 20 107/69 96 06/26/19 16:00 99.9 F H 97 18 119/75 94 L 06/26/19 11:30 98.5 F 103 H 18 150/86 H 97 Weight Admit Weight 119 lb 2 oz Weight 119 lb 2 oz I&O: 06/25/19 06/26/19 06/27/19 06:59 06:59 06:59 Intake Total 1700 2150 600 Balance 1700 2150 600 Result Diagrams: 06/25/19 06:02 06/25/19 06:02 Hospitalist ROS - Medication Medications: Active Medications Generic Name Dose Route Start Last Admin Trade Name Freq PRN Reason Stop Dose Admin Acetaminophen 1,000 mg 06/24/19 16:25 06/26/19 16:26 Tylenol PO 1,000 mg Q6H PRN Administration Headache/Fever or Pain Albuterol/Ipratropium 3 ml 06/24/19 04:32 06/26/19 06:42 Duoneb NEB 3 ml [id number] PRN Administration SOB &/or Wheezing Alprazolam 0.25 mg 06/24/19 16:25 06/26/19 21:23 Xanax PO 0.25 mg TIDPRN PRN Administration Anxiety Ciprofloxacin 500 mg 06/25/19 20:00 06/26/19 21:24 Cipro PO 500 mg 06,1999 NANCY Administration Clindamycin HCl 300 mg 06/25/19 12:00 06/26/19 18:00 Cleocin PO Not Given Q6HR NANCY Heparin Sodium (Porcine) 5,000 units 06/24/19 09:00 06/26/19 21:13 Heparin SC Not Given TID NANCY Potassium Chloride/Sodium Chloride 1,000 ml in 1,000 mls @ 50 mls/hr 06/24/19 16:23 06/26/19 06:01 Ns 0.9% W/ 20 Meq Kcl IV 1,000 mls .Q20H NANCY Administration Ketorolac Tromethamine 30 mg 06/23/19 23:20 06/25/19 21:49 Toradol IVP 06/28/19 23:21 30 mg Q6H PRN Administration Moderate Pain (4-6) Lidocaine 1 patch 06/24/19 21:00 06/26/19 21:18 Lidoderm 5% Patch TD Not Given 2100 NANCY Miscellaneous Medication 1 each 06/24/19 09:00 06/26/19 08:13 Lidocaine Patch Removal TOP 1 each 0900 NANCY Administration Morphine Sulfate 2 mg 06/24/19 02:00 06/25/19 08:28 Morphine SLOW IVP 2 mg Q4H PRN Administration Severe Pain (7-10) Ondansetron HCl 4 mg 06/23/19 23:02 06/25/19 08:30 Zofran IVP 4 mg Q6H PRN Administration Nausea/Vomiting Senna/Docusate Sodium 2 tab 06/23/19 23:02 06/26/19 08:27 Senokot S PO 2 tab BID PRN Administration Constipation Tramadol HCl 50 mg 06/24/19 16:24 06/26/19 13:47 Ultram PO 50 mg Q4H PRN Administration Moderate Pain (4-6) - Exam General Appearance: NAD, awake alert Heart: RRR, no murmur, no gallops, no rubs, normal peripheral pulses Respiratory: CTAB, no wheezes, no rales, no ronchi, normal chest expansion, no tachypnea, normal percussion Gastrointestinal: soft, non-tender, non-distended, normal bowel sounds, no palpable masses, no hepatomegaly, no splenomegaly, no bruit Extremities: no cyanosis, no clubbing, no edema Skin: normal turgor Musculoskeletal: normal tone, normal strength, no muscle wasting Psychiatric: normal affect Hosp A/P (1) Hydroureteronephrosis Code(s): N13.30 - UNSPECIFIED HYDRONEPHROSIS Status: Acute (2) Diverticulitis Code(s): K57.92 - DVTRCLI OF INTEST, PART UNSP, W/O PERF OR ABSCESS W/O BLEED Status: Acute (3) Hydroureter on left Code(s): N13.4 - HYDROURETER Status: Acute (4) Rib pain on right side Code(s): R07.81 - PLEURODYNIA Status: Acute (5) Sepsis Code(s): A41.9 - SEPSIS, UNSPECIFIED ORGANISM Status: Acute (6) Tachycardia Code(s): R00.0 - TACHYCARDIA, UNSPECIFIED Status: Acute (7) Tobacco abuse Code(s): Z72.0 - TOBACCO USE Status: Chronic (8) Hypokalemia Code(s): E87.6 - HYPOKALEMIA Status: Acute (9) Staphylococcus aureus bacteremia Code(s): R78.81 - BACTEREMIA; B95.61 - METHICILLIN SUSCEP STAPH INFCT CAUSING DIS CLASSD ELSWHR Status: Acute - Plan Chronic diverticular dz with occlusion of the left ureter and resultant hydroureter. Preserved renal function and left renal parenchyma on CT. Diverticular disease can be treated with po abx. Will make that conversion to Clinda and Cipro give her allergy profile. She has taken these before without problems. She understands the risks v benefits of nephrostomy drainage and she is comfortable awaiting definitive treatment at the time of surgery. She refuses stent. Blood cultures from [facility] ED are 2/2 positive for MSSA. Discussed with ID. Will cover with Cipro and Rifampin until she can definitively have this surgically addressed. Will need echo prior to DC. Made Urology and Surgery aware of the cultures. Plan is for FU with Dr. Hernandez, OP colonoscopy with smaller scope, surgery for diverticular stricture and ureteral re-implantation at that time. Examined stool. Does not look like it is blood. If so, very modest and old. Recommended she stay on a fiber stools softener.
[2019-06-26] MEDS: Rifampin 300 MG CAP PO SCH (22:47)
[2019-06-27] MEDS: NS 0.9% w/ 20 MEQ KCL 1,000 ML/1,000 ML BAG IV SCH (04:29)
[2019-06-27] MEDS: Acetaminophen 500 MG TAB PO PRN ×3 (04:34→18:15)
[2019-06-27] MEDS: Clindamycin 150 MG CAP PO SCH ×3 (06:09→18:16)
[2019-06-27] MEDS: Ciprofloxacin 500 MG TAB PO SCH ×2 (06:10→22:34)
[2019-06-27] MEDS ORDERED: Naloxone HCl 0.4 mg/ml Vial IV PRN (08:30)
[2019-06-27] MEDS: Lidocaine Patch Removal 1 EACH TOP SCH (09:33)
[2019-06-27] MEDS: traMADol HCl 50 MG TAB PO PRN ×2 (09:34→15:49)
[2019-06-27] MEDS: Rifampin 300 MG CAP PO SCH (09:35)
[2019-06-27] MEDS: Heparin 5,000 UNITS/ML VIAL SC SCH ×3 (09:36→22:32)
[2019-06-27 14:14] LABS: Mean Corpuscular HGB CONC 35.4 g/dL (32.0-36.0); Mean Corpuscular Hemoglobin 34.2 pg (27.0-31.0); Mean Corpuscular Volume 96.7 fL (78.0-98.0); Mean Platelet Volume 6.4 fL (7.4-10.4); Platelet Count 272 thou/uL (130-400); White Blood Cell (WBC) Count 9.6 thou/uL (4.8-10.8)
[2019-06-27 14:42] LABS: Band 15 % (5-11); Eosinophils 1 % (0-10); Lymphocytes 2 % (21-51); MDiff Complete? YES; Monocytes 12 % (0-10); Neutrophil 67 % (42-75); Platelet Morphology Comment Appears Adequate; RBC Morphology Normal; Reactive Lymphocytes 3 % (0-10); Vacuoles SLIGHT
--- NOTE | 2019-06-27 20:21 | PDOC.HOSPP ---
- Subjective Encounter Date: 06/27/19 Subjective: Reports back pain that is chronic. TOld the nurse it was more hip pain. Says she is finally more comfortable. Trying not to move much now. She reports a history of infection of the right elbow in the past that was staph. Recently (about a month ago) had a similar infection in the left elbow. Denies abd pain. - Objective Vital Signs & Weight: Vital Signs (12 hours) Temp Pulse Resp BP Pulse Ox 06/27/19 20:00 98.7 F 99 20 137/77 99 Weight Admit Weight 119 lb 2 oz Weight 119 lb 2 oz I&O: 06/26/19 06/27/19 06/28/19 06:59 06:59 06:59 Intake Total 2150 600 Balance 2150 600 Result Diagrams: 06/27/19 14:01 06/25/19 06:02 Hospitalist ROS - Medication Medications: Active Medications Generic Name Dose Route Start Last Admin Trade Name Freq PRN Reason Stop Dose Admin Acetaminophen 1,000 mg 06/24/19 16:25 06/27/19 18:15 Tylenol PO 1,000 mg Q6H PRN Administration Headache/Fever or Pain Albuterol/Ipratropium 3 ml 06/24/19 04:32 06/26/19 06:42 Duoneb NEB 3 ml [id number] PRN Administration SOB &/or Wheezing Alprazolam 0.25 mg 06/24/19 16:25 06/26/19 21:23 Xanax PO 0.25 mg TIDPRN PRN Administration Anxiety Ciprofloxacin 500 mg 06/25/19 20:00 06/27/19 06:10 Cipro PO 500 mg 06,1999 NANCY Administration Clindamycin HCl 300 mg 06/25/19 12:00 06/27/19 18:16 Cleocin PO 300 mg Q6HR NANCY Administration Heparin Sodium (Porcine) 5,000 units 06/24/19 09:00 06/27/19 15:52 Heparin SC Not Given TID NANCY Potassium Chloride/Sodium Chloride 1,000 ml in 1,000 mls @ 50 mls/hr 06/24/19 16:23 06/27/19 04:29 Ns 0.9% W/ 20 Meq Kcl IV Not Given .Q20H NANCY Ketorolac Tromethamine 30 mg 06/23/19 23:20 06/25/19 21:49 Toradol IVP 06/28/19 23:21 30 mg Q6H PRN Administration Moderate Pain (4-6) Lidocaine 1 patch 06/24/19 21:00 06/26/19 21:18 Lidoderm 5% Patch TD Not Given 2100 NANCY Miscellaneous Medication 1 each 06/24/19 09:00 06/27/19 09:33 Lidocaine Patch Removal TOP Not Given 0900 NANCY Morphine Sulfate 2 mg 06/24/19 02:00 06/25/19 08:28 Morphine SLOW IVP 2 mg Q4H PRN Administration Severe Pain (7-10) Ondansetron HCl 4 mg 06/23/19 23:02 06/25/19 08:30 Zofran IVP 4 mg Q6H PRN Administration Nausea/Vomiting Rifampin 300 mg 06/26/19 22:00 06/27/19 09:35 Rifadin PO 300 mg 1000,2200 NANCY Administration Senna/Docusate Sodium 2 tab 06/23/19 23:02 06/26/19 08:27 Senokot S PO 2 tab BID PRN Administration Constipation Tramadol HCl 50 mg 06/24/19 16:24 06/27/19 15:49 Ultram PO 50 mg Q4H PRN Administration Moderate Pain (4-6) - Exam General Appearance: NAD, awake alert Heart: RRR, no murmur, no gallops, no rubs, normal peripheral pulses Respiratory: CTAB, no wheezes, no rales, no ronchi, normal chest expansion, no tachypnea, normal percussion Gastrointestinal: soft, non-tender, non-distended, normal bowel sounds, no palpable masses, no hepatomegaly, no splenomegaly, no bruit Skin: normal turgor Musculoskeletal: normal tone, normal strength, no muscle wasting Psychiatric: normal affect, normal behavior, A&O x 3 Hosp A/P (1) Hydroureteronephrosis Code(s): N13.30 - UNSPECIFIED HYDRONEPHROSIS Status: Acute (2) Diverticulitis Code(s): K57.92 - DVTRCLI OF INTEST, PART UNSP, W/O PERF OR ABSCESS W/O BLEED Status: Acute (3) Hydroureter on left Code(s): N13.4 - HYDROURETER Status: Acute (4) Rib pain on right side Code(s): R07.81 - PLEURODYNIA Status: Acute (5) Sepsis Code(s): A41.9 - SEPSIS, UNSPECIFIED ORGANISM Status: Acute (6) Tachycardia Code(s): R00.0 - TACHYCARDIA, UNSPECIFIED Status: Acute (7) Tobacco abuse Code(s): Z72.0 - TOBACCO USE Status: Chronic (8) Hypokalemia Code(s): E87.6 - HYPOKALEMIA Status: Acute (9) Staphylococcus aureus bacteremia Code(s): R78.81 - BACTEREMIA; B95.61 - METHICILLIN SUSCEP STAPH INFCT CAUSING DIS CLASSD ELSWHR Status: Acute - Plan Chronic diverticular dz with occlusion of the left ureter and resultant hydroureter. Preserved renal function and left renal parenchyma on CT. Diverticular disease can be treated with po abx. Will make that conversion to Clinda and Cipro give her allergy profile. She has taken these before without problems. She understands the risks v benefits of nephrostomy drainage and she is comfortable awaiting definitive treatment at the time of surgery. She refuses stent. Blood cultures from [facility] ED are 2/2 positive for MSSA. Discussed with ID. Will cover with Cipro and Rifampin until she can definitively have this surgically addressed. Will need echo prior to DC. Made Urology and Surgery aware of the cultures. Echo obtained. Awaiting results. Plan is for FU with Dr. Hernandez, OP colonoscopy with smaller scope, surgery for diverticular stricture and ureteral re-implantation at that time. Examined stool. Does not look like it is blood. If so, very modest and old. Recommended she stay on a fiber stools softener.
--- NOTE | 2019-06-27 22:03 | CON ---
DATE OF CONSULTATION: REASON FOR CONSULTATION: Bacteremia. HISTORY OF PRESENT ILLNESS: A 63-year-old who has a history of chronic smoking and history of diverticulitis, sigmoid area with involvement of the left-sided renal outflow tract with ureteral obstruction and hydronephrosis. The patient most likely has had diverticulitis for a while and never paid much attention to it. It is not clear if she has some form of neuropathy, but the symptoms of diverticulitis are not very typical in the sense that she does not have a lot of abdominal pain, mostly has sort of nondescript general malaise and fever. In 2018, she had a stent placed by Dr. Machado I believe at [facility] and then she was going to be scheduled for a colonoscopy, but ended up not having it done due to some personal issues and ended up not having any subsequent evaluation and treatment for the diverticulitis and so, she turns up in the hospital emergency room on June 23 after her boyfriend popped her back, started having pain in the right side and in view of the past history, they decided to do an imaging study, which was an abdomen and pelvis CT. This showed cholelithiasis and sigmoid diverticulitis with distal ureter involvement, left-sided hydroureteronephrosis. Dr. Obrien saw the patient, and the recommendation was for sigmoidectomy and then reimplantation of the ureter after the procedure, but before that, she would have to have a colonoscopy. She is being readied for discharge, and I went to see her file and realize that she had Staphylococcus aureus bacteremia that had not been addressed yet, and the patient has remained echocardiogram pending, and she is now willing to undergo proper treatment. Denies any headaches. She continues with low back pain, which is fairly intense and radiates to the right sacroiliac region. She does have some neck pain, but she blames it on the bed and the pillow; in other words, she did not have this before admission. Some respiratory symptoms associated with chronic smoking with likely chronic obstructive lung disease. She does have some dyspnea and some coughing spells. She does have the abdominal pain which is more in the midline , but also on the left side. This is mild at the most. No genitourinary symptoms at the moment. No other joint symptoms. No neurological symptoms. MEDICAL HISTORY: Likely chronic lung disease, COPD, emphysema, diverticulitis, which has led to obstruction of left ureter with hydronephrosis and stenting has not had yet a full workup to allow the resection of the sigmoid segment involved and then reimplantation of ureter, which is planned in the near future. She has had a TIA in the past and had been diagnosed with ulcerative colitis, but most likely this is a misdiagnosis, although we do not have yet a confirmatory exam which would be the endoscopy. ALLERGIES: PENICILLIN, SULFA DRUGS, THOSE ARE NOT CONFIRMED ALLERGIES. CODEINE. MEDICATION LIST: At the moment, she is on; 1. DuoNeb inhalers. 2. Xanax. 3. Cefazolin has been started. 4. She had been on Cipro. 5. Cleocin. 6. Rifampin had been started as well. FAMILY HISTORY: Noncontributory. SOCIAL HISTORY: She smokes, but apparently has stopped recently and is planning to not resume smoking habit. She used to smoke quite heavily. 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 PHYSICAL EXAMINATION: VITAL SIGNS: T-max 103, has defervesce now to 98.4, blood pressure 150/93, pulse 78, respirations 20, and O2 saturation is 93. SKIN: Shows a little bit of acrocyanosis. No lymphadenopathy. No areas of skin breakdown. Peripheral IV access has been removed, and she has not allowed nurse to restart one. Ocular movements conjugate. She does have some cyanosis in the lips and malar region. Oral cavity otherwise with numerous teeth in place with some decay. NECK: Supple. No jugular vein distention or carotid bruits. LUNGS: With distant lung sounds. Faint wheezing at the bases particularly on the left side. HEART: S1 and S2, regular rate. No S3 or S4. ABDOMEN: Soft with [id number]-[id number] tenderness in the left lower quadrant, a little bit on the midline to the suprapubic area. No distention. No ascites. No hepatosplenomegaly. No bladder distention. No joint inflammatory activity. Pulses 1+ in dorsalis pedis. Plantar responses are flexor. No clonus. Moves extremities equally. Cognitive function appears to be intact. LABORATORY DATA: Sodium 137, creatinine 0.56. Liver profile normal. Albumin 3.2. White cell count 9.4 and 9.6, hemoglobin 13, platelets 272 with 15% bands. IMAGING: There is the abdomen and pelvis CT from the , which shows sigmoid diverticulitis with distal ureter involvement. Basically, the diagnosis of sigmoid diverticulitis is suggested by thickening of the wall of the sigmoid colon and pericolonic inflammatory changes, which engulfed the distal left ureter causing the hydronephrosis. ASSESSMENT: 1. Chronic smoking with likely chronic lung disease and inflammatory process in the left sigmoid colon, presumably diverticulitis, but the diagnosis has not yet been confirmed. 2. Left hydronephrosis, secondary to obstruction of the left ureter by this inflammatory process. 3. Progressively worsening lower back pain with concentration over the right sacroiliac joint. 4. MSSA or methicillin-sensitive Staphylococcus aureus bacteremia, 2/2 sets. DISCUSSION: 1. The differential diagnosis includes diverticulitis versus an alternate cause of inflammatory bowel disease. Malignancy appears to be less likely, but not excluded. 2. Methicillin-susceptible Staphylococcus aureus bacteremia, 2/2 sets with low back pain. The typical organisms associated with diverticulitis are gram-negative enterics and anaerobes and Staphylococcus aureus is not the typical or common pathogen associated with this type of process, so we would need to consider an alternate diagnosis, particularly the possibility of lumbosacral spine infection. Cases of MSSA or methicillin-sensitive Staphylococcus aureus diverticulitis have been described nonetheless in the literature. The other possibility would be a renal infection with sacroiliac joint infection is a possibility as well. Endocarditis is not ruled out. We will evaluate for the echocardiogram and then I will write for PICC line placement and treated properly with cefazolin for protracted periods of time. Check an MRI of the lumbosacral spine area. Job ID: [id number] [facility]
[2019-06-27] MEDS: CEFAZOLIN 2 GM in Premix Bag 1 BAG IVPB SCH (22:32)
[2019-06-27] MEDS: Ketorolac Tromethamine 30 MG/ML VIAL IVP PRN (22:33)
[2019-06-28] MEDS: Lidocaine 5% Patch TD SCH ×2 (00:23→19:57)
[2019-06-28] MEDS: ALPRAZolam 0.25 MG TAB PO PRN ×2 (00:24→19:54)
[2019-06-28] MEDS: NS 0.9% w/ 20 MEQ KCL 1,000 ML/1,000 ML BAG IV SCH ×2 (02:46→19:51)
[2019-06-28] MEDS: CEFAZOLIN 2 GM in Premix Bag 1 BAG IVPB SCH ×3 (06:01→21:01)
[2019-06-28] MEDS: Acetaminophen 500 MG TAB PO PRN ×3 (08:30→19:55)
[2019-06-28] MEDS: Ondansetron PF 4 MG/2 ML Vial IVP PRN ×2 (08:30→19:49)
[2019-06-28] MEDS: Lidocaine Patch Removal 1 EACH TOP SCH (08:30)
[2019-06-28] MEDS ORDERED: Magnevist 469MG/ML 20 ML VIAL ONE (11:14)
--- NOTE | 2019-06-28 11:27 | SPC ---
SPC CVP LINE PICC INITIAL >5: 06/28/2019 11:23 AM INDICATION: UTI, need for long-term IV antibiotics PROCEDURE: Peripherally placed 47 cm left single lumen PICC line. PICC Line Placement: The left arm was prepped and draped in sterile fashion. One percent lidocaine was used for local anesthetic. Under fluoroscopic and ultrasound guidance, the left basilic vein was patent and accessed with a micr opuncture needle. A guide wire was then advanced into the left basilic vein. A vascular sheath was then advanced over a guide wire, and a single lumen PICC line was trimmed. The PICC line was th en advanced into the central venous system. A final placement film demonstrates the tip of the catheter terminated in the caval-atrial junction. After confirmation of the catheter position, the catheter was sutured in place at the skin entry site . There was no immediate complication. Total fluoroscopic time 0.3 minutes. Total exposure 962 mgray/sq cm IMPRESSION: Peripheral placement of a single lumen power PICC line into the left basilic vein using fluoroscopic and ultrasound guidance.
[2019-06-28] MEDS: Heparin 5,000 UNITS/ML VIAL SC SCH ×2 (13:59→19:43)
--- NOTE | 2019-06-28 19:03 | PRG ---
DATE OF SERVICE: 06/28/2019 SUBJECTIVE: The patient is feeling about the same. T-max 100. The exam is unchanged. LABORATORY DATA: White cell count 9.6, hemoglobin 13, platelets 272. Creatinine 0.56. Echo was not particularly remarkable. ASSESSMENT AND DISCUSSION: 1. Chronic smoking, chronic lung disease. 2. Inflammatory process of left sigmoid colon, either diverticulitis or an alternate inflammatory process, for example inflammatory bowel disease. 3. Left hydronephrosis because of encasement of the left ureter by this inflammatory process mentioned above. 4. MSSA or methicillin-sensitive Staph aureus bacteremia, either from the area of inflammation in the left lower quadrant or from an alternate source, for example lower lumbosacral spine infection. The MRI is pending at this point in time. It is quite complex case. The general surgeon, Dr. Smallwood, and Dr. Obrien are envisioning an ileostomy and stent placement versus a delayed procedure after we take care of this inflammatory process with antimicrobial therapy including the possibility of resection and then reimplantation of the ureter in the same surgery. It seems like it would be a preferable approach, but now we have this bacteremia that needs to be dealt with, the standard of approach would be IV antimicrobial therapy with a beta-lactam agent, either Rocephin or cefazolin for 2 to 4 weeks. In her case because of the inability to control the source, 4-week duration will be the recommended approach. Again, we do not have definitive diagnosis for the left colon inflammatory process yet and this seems to be a quite chronic inflammatory process, it has been there for years, so it is somewhat atypical for diverticulitis. Job ID: [id number]
[2019-06-28] MEDS: Morphine 2 MG/ML SYRINGE SLOW IVP PRN (19:48)
--- NOTE | 2019-06-28 20:04 | PRG ---
DATE OF SERVICE: 06/28/2019 SUBJECTIVE: The patient is feeling quite well. She is up and around much better today with much less back pain. OBJECTIVE: VITAL SIGNS: T-max 100.0, pulse 87 to 100, saturations 97% on room air, BP 155/91. GENERAL APPEARANCE: Thin, age-appropriate female, in no distress. She is awake, alert, oriented, pleasant, and cooperative. HEART: Regular rate and rhythm with no murmurs, gallops, or rubs. LUNGS: Clear to auscultation bilaterally with good chest wall expansion and air exchange. ABDOMEN: Soft, nontender, and nondistended. Positive bowel sounds. No masses. No organomegaly. EXTREMITIES: No cyanosis, clubbing, or edema. IMPRESSION AND PLAN: 1. Methicillin-sensitive Staphylococcus bacteremia, unclear source. Infectious Disease is following. She has a lumbar spine MRI obtained given her recurrent/chronic back pain in the setting of the methicillin-sensitive Staphylococcus bacteremia. The patient also reports that she has had some significant skin infections on both elbows, one of which was Staph from her recollection. She also has the process going on in the abdomen, which is another potential source. Echocardiogram was normal and unremarkable. She appears to be largely asymptomatic at this time. She did have a peripherally inserted central catheter line placed today with the plan for outpatient IV antibiotics, which will need to be worked out through the help of Case Management. 2. Chronic diverticular abscess/phlegmon. The patient's abdominal process is not fully elucidated. What appears though she has had some chronic diverticular disease with inflammation and scarring, which has encompassed the left ureter. This has been present since at least 2018. The patient is aware that she should have pursued treatment of this in the past, but has not done so. It is unclear at this time what role that is playing in her bacteremia if any. Discussed the case with Dr. Smallwood personally today. Her thinking is it would be best to do a diverting colostomy and allow this area to cool off for about 3 months so that it can be more easily addressed surgically. The patient is aware of that plan that she will need to follow up with Dr. Smallwood to set that in motion after discharge. Dr. Smallwood will also be reviewing her CT scan in order to firm up a plan. 3. Left ureteral occlusion with hydroureter and hydronephrosis. I discussed the case with Dr. Obrien personally today. The patient will have a urostomy tube placed tomorrow prior to discharge in order to decompress the left kidney and hopefully salvage any renal function that is there. CT scan appeared to show preserved parenchymal architecture and therefore it is hopeful that this kidney is still somewhat functional. Once the patient has the area of entrapment removed with General Surgery, he will likely need to reimplant the left ureter. 4. Sepsis, resolved. 5. Tachycardia, resolved. 6. Hypokalemia, resolved. 7. Tobacco abuse, chronic. The patient has not actually smoked in about a week and a half. At this point, she fully understands the need to stop in order to have a better chance of getting through her complex surgical issues successfully. Job ID: [id number]
[2019-06-28] MEDS ORDERED: Lidocaine 2% Viscous Solution 10 ML, Aluminum & Magnesium Hydroxide 30 ML SSW SCH (22:00)
[2019-06-29] MEDS: Ondansetron PF 4 MG/2 ML Vial IVP PRN ×3 (01:39→21:33)
[2019-06-29] MEDS: Morphine 2 MG/ML SYRINGE SLOW IVP PRN ×5 (01:39→21:33)
[2019-06-29] MEDS: Acetaminophen 500 MG TAB PO PRN ×4 (01:42→23:07)
[2019-06-29] MEDS: CEFAZOLIN 2 GM in Premix Bag 1 BAG IVPB SCH ×3 (04:52→23:07)
[2019-06-29] MEDS: Heparin 5,000 UNITS/ML VIAL SC SCH ×3 (07:27→19:56)
[2019-06-29] MEDS: Lidocaine Patch Removal 1 EACH TOP SCH (08:04)
[2019-06-29] MEDS: traMADol HCl 50 MG TAB PO PRN ×2 (14:44→23:08)
[2019-06-29] MEDS: ALPRAZolam 0.25 MG TAB PO PRN (14:52)
[2019-06-29] MEDS: NS 0.9% w/ 20 MEQ KCL 1,000 ML/1,000 ML BAG IV SCH (17:09)
[2019-06-29] MEDS: Lidocaine 5% Patch TD SCH ×2 (19:55→23:11)
--- NOTE | 2019-06-29 21:02 | PDOC.HOSPP ---
- Subjective Encounter Date: 06/29/19 Subjective: Feels ok. A little overwhelmed by it all. Has decided that she does not want to get the nephrostomy tube. - Objective Vital Signs & Weight: Weight Admit Weight 119 lb 2 oz Weight 119 lb 2 oz Result Diagrams: 06/27/19 14:01 06/25/19 06:02 Hospitalist ROS - Medication Medications: Active Medications Generic Name Dose Route Start Last Admin Trade Name Freq PRN Reason Stop Dose Admin Acetaminophen 1,000 mg 06/24/19 16:25 06/29/19 17:45 Tylenol PO 1,000 mg Q6H PRN Administration Headache/Fever or Pain Albuterol/Ipratropium 3 ml 06/24/19 04:32 06/26/19 06:42 Duoneb NEB 3 ml [id number] PRN Administration SOB &/or Wheezing Alprazolam 0.25 mg 06/24/19 16:25 06/29/19 14:52 Xanax PO 0.25 mg TIDPRN PRN Administration Anxiety Heparin Sodium (Porcine) 5,000 units 06/24/19 09:00 06/29/19 19:56 Heparin SC Not Given TID NANCY Potassium Chloride/Sodium Chloride 1,000 ml in 1,000 mls @ 50 mls/hr 06/24/19 16:23 06/29/19 17:09 Ns 0.9% W/ 20 Meq Kcl IV 1,000 mls .Q20H NANCY Administration Cefazolin Sodium/Dextrose 2 gm 50 mls @ 100 mls/hr 06/27/19 22:00 06/29/19 13 :27 / Device IVPB 50 mls Q8HR NANCY Administration Lidocaine 1 patch 06/24/19 21:00 06/29/19 19:55 Lidoderm 5% Patch TD Not Given 2100 NANCY Miscellaneous Medication 1 each 06/24/19 09:00 06/29/19 08:04 Lidocaine Patch Removal TOP 1 each 0900 NANCY Administration Morphine Sulfate 2 mg 06/24/19 02:00 06/29/19 17:07 Morphine SLOW IVP 2 mg Q4H PRN Administration Severe Pain (7-10) Ondansetron HCl 4 mg 06/23/19 23:02 06/29/19 12:20 Zofran IVP 4 mg Q6H PRN Administration Nausea/Vomiting Senna/Docusate Sodium 2 tab 06/23/19 23:02 06/26/19 08:27 Senokot S PO 2 tab BID PRN Administration Constipation Tramadol HCl 50 mg 06/24/19 16:24 06/29/19 14:44 Ultram PO 50 mg Q4H PRN Administration Moderate Pain (4-6) - Exam General Appearance: NAD, awake alert Heart: RRR, no murmur, no gallops, no rubs, normal peripheral pulses Respiratory: CTAB, no wheezes, no rales, no ronchi, normal chest expansion, no tachypnea, normal percussion Gastrointestinal: soft, non-tender, non-distended, normal bowel sounds, no palpable masses, no hepatomegaly, no splenomegaly, no bruit Extremities: no cyanosis, no clubbing, no edema Musculoskeletal: normal tone, normal strength, no muscle wasting Psychiatric: normal affect, normal behavior, A&O x 3 Hosp A/P (1) Hydroureteronephrosis Code(s): N13.30 - UNSPECIFIED HYDRONEPHROSIS Status: Acute (2) Diverticulitis Code(s): K57.92 - DVTRCLI OF INTEST, PART UNSP, W/O PERF OR ABSCESS W/O BLEED Status: Acute (3) Hydroureter on left Code(s): N13.4 - HYDROURETER Status: Acute (4) Rib pain on right side Code(s): R07.81 - PLEURODYNIA Status: Acute (5) Sepsis Code(s): A41.9 - SEPSIS, UNSPECIFIED ORGANISM Status: Acute (6) Tachycardia Code(s): R00.0 - TACHYCARDIA, UNSPECIFIED Status: Acute (7) Tobacco abuse Code(s): Z72.0 - TOBACCO USE Status: Chronic (8) Hypokalemia Code(s): E87.6 - HYPOKALEMIA Status: Acute (9) Staphylococcus aureus bacteremia Code(s): R78.81 - BACTEREMIA; B95.61 - METHICILLIN SUSCEP STAPH INFCT CAUSING DIS CLASSD ELSWHR Status: Acute - Plan Chronic diverticular dz with occlusion of the left ureter and resultant hydroureter. Preserved renal function and left renal parenchyma on CT. Blood cultures from [facility] ED are 2/2 positive for MSSA. Discussed with ID. PICC line. Awaiting orders from Dr. Hanna for the Rocephin. Will need to get approval from admin for administering the meds in [facility]. Will need follow up with Dr. Smallwood to arrange the surgical plan.
[2019-06-30] MEDS: Ondansetron PF 4 MG/2 ML Vial IVP PRN (03:43)
[2019-06-30] MEDS: Morphine 2 MG/ML SYRINGE SLOW IVP PRN ×4 (03:43→17:50)
[2019-06-30] MEDS: Acetaminophen 500 MG TAB PO PRN (05:18)
[2019-06-30] MEDS: CEFAZOLIN 2 GM in Premix Bag 1 BAG IVPB SCH ×2 (05:19→13:45)
[2019-06-30] MEDS: Heparin 5,000 UNITS/ML VIAL SC SCH ×2 (09:43→15:34)
[2019-06-30] MEDS: Lidocaine Patch Removal 1 EACH TOP SCH (10:34)
[2019-06-30 11:52] VITALS: BP 150/88; TEMP 98.2
[2019-06-30] MEDS: ALPRAZolam 0.25 MG TAB PO PRN (13:45)
[2019-06-30] MEDS: traMADol HCl 50 MG TAB PO PRN (14:44)
--- NOTE | 2019-06-30 17:37 | PRG ---
DATE OF SERVICE: 06/29/2019 SUBJECTIVE: The patient states she is still not feeling well. She still has a lot of pain issues and is generally feeling under the weather. She has received a PICC line for IV antibiotics due to positive blood culture. She had been planned for a nephrostomy tube after Dr. Mckeon had talked with her, but has now stated she is refusing nephrostomy tube at this time. She has already stated that she would not except another ureteral stent except at the time of her ureteral reimplantation if necessary. OBJECTIVE: VITAL SIGNS: Temperature 98.5, pulse 105, respirations 20, blood pressure 171/92, saturation 92% on room air. GENERAL: No apparent distress. Feels looks a little bit ill, but is otherwise communicative and alert, answering questions appropriately. CARDIOVASCULAR: Regular rate and rhythm. ABDOMEN: Soft, mildly tender to palpation. Nondistended. Positive bowel sounds. EXTREMITIES: No edema. LABORATORY EVALUATION: There are no new labs to review. ASSESSMENT AND PLAN: A 63-year-old white female with left hydronephrosis secondary to severe chronic sigmoid diverticulitis with bacteremia. She is currently being treated with IV antibiotics via PICC line and will probably be discharged with IV antibiotics as well. From my standpoint, the patient would probably do best with a nephrostomy tube, but has had hydronephrosis for 2 years. Again, I do not think it is emergent to have a nephrostomy tube at this time as there is no strong indication as she does have a normal creatinine and does not have any symptoms of acute renal colic or evidence of high fevers or sepsis secondary to pyelonephritis. I did caution the patient that if she did not do a nephrostomy tube in the near future, she could risk permanent damage or of the left kidney. It is possible that this is already happened, but we would not know without the nephrostomy tube. Ultimately it would probably be best to place a nephrostomy tube within the next 1 to 2 weeks; at which point, we can do a MAG3 renal scan after she has had drainage for approximately one month to see what the function of the left kidney is. If there is less than 20% function, I would not recommend reimplantation, but if there is more than 20% function, the reimplantation would be best achieved after Dr. Smallwood is planning her final surgery for her sigmoid diverticulitis. I again went over with the patient that a nephrostomy tube would be best achieved right now, but since the patient is somewhat overwhelmed with how much has happened, she has asked for short break and states that she will probably do the nephrostomy tube as an outpatient. She is to contact me, and I have given her my card with number to notify me when she is ready to do the nephrostomy tube with cautions, but if she does not call me or goes a prolonged period of time, she may ultimately lose function of her left kidney permanently to the point where she has a solitary functioning right kidney forever. She does understand these risks and states she is fine with it, but has elected to forego nephrostomy tube placement on this admission. From my standpoint, there is nothing further to do at this time unless the patient becomes acutely ill with pyelonephritis or develops renal colic. I will sign off. Please re-consult if there are any further questions. The patient is advised to follow up with me as an outpatient once she has called me to set up her nephrostomy tube. Job ID: [id number]
--- NOTE | 2019-07-01 13:26 | DIS ---
DATE OF ADMISSION: 06/23/2019 DATE OF DISCHARGE: 06/30/2019 DISCHARGE DIAGNOSES: 1. Sepsis. 2. Bacteremia with Staph aureus. 3. Severe chronic sigmoid diverticulitis. 4. Chronic left hydroureter and hydronephrosis. 5. Musculoskeletal right rib pain. 6. Lumbar back pain. 7. Tachycardia. 8. Hypokalemia. 9. Tobacco abuse. HISTORY: This patient is a 63-year-old female, who initially presented to the emergency department in [place], where she reported abdominal and chest pain with associated fevers and chills. Pain was 6/10, mostly in the lower abdomen without radiation, worse with movement. She had a CT abdomen and pelvis, which revealed evidence of diverticulitis with left hydronephrosis. She was started on antibiotics and transferred to our facility. She had no EKG changes of ischemia. She was diagnosed with diverticulitis, hydronephrosis, some right rib pain anteriorly and was started on IV fluids and broad spectrum antibiotics. The patient was seen in consultation by General Surgery and Urology. It was discovered the patient had had similar findings on her CT scan dating back to 2018. At that time, the patient was referred for colonoscopy with anticipation of surgical intervention; however, when following up with family practice, she was unable to have the colonoscopy successfully completed because of the stricture. The plan was for her to follow up with GI to have a smaller endoscope used and then to follow up to have a surgical intervention; however, the patient did not follow up as was indicated at that time. Therefore, it was felt her situation was likely part of a chronic situation that had been present since at least 2018. She was encouraged to consider ureteral stent; however, she reported that when she had the episode in 2018, she had had a ureteral stent placed at that time, which was subsequently removed, but she had severe pain with that and refused to consider having an additional stent placement. She was also encouraged to consider percutaneous nephrostomy tube. The patient initially declined, then agreed to move forward with it, then declined again. She was able to go back to eating and was having some bowel movements. She did not have significant persistent abdominal pain. She was seen in consultation by Infectious Disease because her blood cultures from [place] were positive for Staph aureus. An echocardiogram was performed, which was unremarkable. She had been screened for MRI of the lumbar spine, but it appears the patient declined that intervention as best I can tell in the record. She subsequently was not having significant back pain, was ambulating throughout and outside of the hospital without difficulty. Throughout her stay, at our facility, she had no further significant fevers with T-max of 100.4 on the . Her abdominal exam had largely improved. We discussed the situation extensively and I reviewed the case with Dr. Obrien , who is her urologist, and with Dr. Smallwood, who was the surgeon, who saw her initially back in 2018. Ultimately, the plan was to have her be treated for the bacteremia and then a PICC line was placed and she was started on a prolonged course of IV Rocephin under the direction of Dr. Hanna. She was then to follow up with Surgery with the plan being that the patient could consider either a diverting ileostomy or colostomy in order to allow the area of chronic diverticulitis to "cool off." Then, she would have subsequent surgery to remove the chronic diverticulitis in area of the sigmoid colon. However, because it appeared to be largely encasing the left ureter, there would have to be resection of the ureter at the time of the resection of the diverticulitis. The bladder would then be rotated and the ureter reimplanted into the bladder. The patient would maintain the stoma and then have a takedown subsequent in the future. All of this was explained to the patient in detail and she indicated that she ultimately was prepared to have follow up and pursue this plan. She understands the potential of losing her left kidney without having the urostomy tube, but she was clear that she does not want to pursue that. Once she was eating well, ambulating, vital signs were stable and her exam was largely unremarkable, she was felt to be stable for discharge. PHYSICAL EXAMINATION: VITAL SIGNS: On the day of discharge, exam was notable for temperature of 98.2, pulse 90, respirations 16, O2 sat 98% on room air. GENERAL: She was awake and alert. HEART: Regular rate and rhythm. LUNGS: Clear. ABDOMEN: Soft, nontender, and nondistended. Positive bowel sounds. No masses. No organomegaly. EXTREMITIES: No edema. DISPOSITION: She is discharged home. ACTIVITY: As tolerated. DIET: She is to have a heart healthy diet. MEDICATIONS: 1. She will be on Tylenol p.r.n. 2. Alprazolam 0.25 mg t.i.d. p.r.n. 3. She will be receiving daily IV Rocephin at the hospital in [place] until July 25. FOLLOWUP: She is to follow up with Dr. Obrien and indicated that his office had already reached out to her to have that followup appointment. She will follow up with Dr. Smallwood and she will also follow up with Dr. Hernandez in 7 days. She can return to the hospital at any time should she feel the need to do so. Time spent in discharge activities was greater than 30 minutes. Job ID: [id number] [facility]
--- NOTE | 2019-07-03 23:58 | PQF ---
Alessandra Jones DAVID R MD [id number] CLINICAL DOCUMENTATION CLARIFICATION FORM: POST DISCHARGE Addendum to original discharge summary date: ____ Late entry note date: __ DATE:07/03/2019 ATTN: RADHA MENCHACA MD Please exercise your independent, professional judgment in responding to the clarification form. Clinical indicators are provided on the bottom of this form for your review Please check appropriate box(s) to clarify if the following diagnosis has been ruled in or ruled out: Sepsis [x ] Ruled in diagnosis [ x ] Continue to treat [ ] Resolved [ ] Ruled out diagnosis [ ] Cannot rule out diagnosis [ ] Other diagnosis [ ] Unable to determine For continuity of documentation, please document condition throughout progress notes and discharge summary. Thank You. CLINICAL INDICATORS - SIGNS / SYMPTOMS / LABS UTI, SIRS-Documented in ED on 06/23 by Wesley Rivera Fever-Documented in H&P on 06/23 by Pérez Verma MD WBC-11.9-Documented in H&P on 06/23 by Pérez Verma MD MSSA bacteremia either from the area of inflammation in the left lower quadrant or from an alternate soutce for example lower lumbosacral spine infection -Documented in PN on 06/28 by Werner Hanna MD Sepsis resolved -Documented in PN on 06/28 by Radha Menchaca MD Tachycardia resolved-Documented in PN on 06/28 by Radha Menchaca MD Blood cultures from [facility] Ed are 2/2 positive for MSSA-Documented in 06/29 by Radha Menchaca There is no strong indication as she dose have a normal creatinine and does not have any symptoms of acute renal colic or evidence of high fevers or sepsis secondary to pyelonephritis -Documented in PN on 06/29 by Felice Obrien [employer] MSSA bacteremia either from the area of inflammation in the left lower quadrant or from an alternate soutce for example lower lumbosacral spine infection -Documented in PN on 06/28 by Werner Hanna MD UTI, SIRS-Documented in ED on 06/23 by Wesley Rivera TREATMENTS Rocephin 2 gm IV -Documented in Medication snapshot Ancef 2 gm IV-Documented in Medication snapshot Cipro 500 mg po-Documented in Medication snapshot [employer] Winform Viewer (This form is maintained as a part of the permanent medical record) 2014 [employer], [employer]. All Rights Reserved [email or web address]
== END 2019-06-30 18:16 | disposition home or self-care (01) | DRG 872 ==
LOC: ERS 20:17 → T4-B 22:53
PROVIDERS: ADMIT Internal Medicine Sleep Medicine; ATTEND Internal Medicine
PROC: 02HV33Z Insertion of Infusion Device into Superior Vena Cava, Percutaneous Approach (ICD-10-PCS; principal; 2019-06-28)
PROC: B518ZZA Fluoroscopy of Superior Vena Cava, Guidance (ICD-10-PCS; 2019-06-28)
DX: A41.9 Sepsis, unspecified organism (principal); K57.92 Diverticulitis of intestine, part unspecified, without perforation or abscess without bleeding; N13.30 Unspecified hydronephrosis; Z72.0 Tobacco use; R07.81 Pleurodynia; F41.0 Panic disorder [episodic paroxysmal anxiety]; F41.9 Anxiety disorder, unspecified; E87.6 Hypokalemia; B95.61 Methicillin susceptible Staphylococcus aureus infection as the cause of diseases classified elsewhere
CPT/HCPCS: 36415; 36569; 72158; 74177; 80048; 80053; 83605; 85025; 93306; 94640; 96361; 96365; 96375; A9579; C1751; J0690; J0696; J1644; J1885; J2270; J2405; J3480; J3490; J7620; Q9967

== ENCOUNTER 2019-09-06 01:09 | Inpatient (IN) | payer SELFPAY, OTHER ==
[2019-09-06 02:01] LABS: #Basophils 0.1 thou/uL (0.0-0.2); #Eosinphils 0.1 thou/uL (0.0-0.7); #Lymphocytes 1.1 thou/uL (1.20-3.40); #Monocytes 0.5 thou/uL (0.11-0.59); #Neutrophils 7.6 thou/uL (1.40-6.50); %Basophils 0.6 % (0.0-1.0); %Eosinophils 0.9 % (0.0-10.0); %Monocytes 5.4 % (0.0-10.0); %Neutrophils 81.2 % (42.0-75.0); Hemoglobin 14.9 g/dL (12.0-16.0); Mean Corpuscular HGB CONC 33.2 g/dL (32.0-36.0); Mean Corpuscular Hemoglobin 33.6 pg (27.0-31.0); Mean Platelet Volume 6.6 fL (7.4-10.4); Platelet Count 252 thou/uL (130-400); RBC Distribution Width 13.4 % (11.5-14.5); Red Blood Cell (RBC) Count 4.43 mill/uL (4.20-5.40); White Blood Cell (WBC) Count 9.4 thou/uL (4.8-10.8)
[2019-09-06 02:23] LABS: ALT (SGPT) 14 U/L (8-55); AST (SGOT) 23 U/L (5-34); Albumin 3.7 g/dL (3.4-4.8); Alkaline Phosphatase 110 U/L (40-110); Anion Gap 18 mmol/L (10-20); BUN (Urea Nitrogen) 8 mg/dL (9.8-20.1); Bilirubin, Total 0.4 mg/dL (0.2-1.2); Calc. Creatinine Clearance 0 mL/min (70-130); Carbon Dioxide 19 mmol/L (23-31); Chloride 104 mmol/L (98-107); Estimated GFR-MDRD Greater than 90; Globulin 3.2 g/dL (2.4-3.5); Glucose 116 mg/dL (80-115); Lipase 13 U/L (8-78); Potassium 3.2 mmol/L (3.5-5.1); Protein, Total 6.9 g/dL (6.0-8.3); Sodium 138 mmol/L (136-145)
[2019-09-06] MEDS ORDERED: Fentanyl 100 MCG/2 ML VIAL ONE ×2 (02:44→13:24)
[2019-09-06] MEDS ORDERED: Ondansetron PF 4 MG/2 ML Vial ONE (03:00)
[2019-09-06] MEDS ORDERED: cefTRIAXone\\ROCEPHIN 2 GM VIAL ONE (03:17)
[2019-09-06] MEDS ORDERED: Activated Charcoal/Sorbitol 25 GM/120 ML TUBE ONE (03:17)
[2019-09-06] MEDS ORDERED: metroNIDAZOLE 500 MG/100 ML BAG ONE (03:27)
[2019-09-06] MEDS ORDERED: hydrALAZINE 20 MG/ML VIAL ONE (03:44)
[2019-09-06] MEDS ORDERED: Dextrose 5 % And 0.9 % NaCl 1,000 ML IV SCH (04:51)
[2019-09-06 05:01] VITALS: BMI 19.3
[2019-09-06] MEDS: Morphine 2 MG/ML SYRINGE SLOW IVP PRN ×7 (05:32→23:59)
--- NOTE | 2019-09-06 09:20 | CT ---
PRELIMINARY REPORT/[facility]/EMERGENCY AFTER HOURS PROCEDURE: Receipt of this report by the clinical staff was confirmed with Carlita Lyon MD by Janet Johnson on September 06, 2019 02:58:00 CDT. Addendum electronically signed by Janet Johnson on September 06, 2019 2:59:07 AM CDT PROCEDURE: CT Scan Abdomen and Pelvis with IV Contrast Material. HISTORY: Midline lower abdomen pain. TECHNIQUE: Axial images were performed with multiplanar reconstructions. The patient was given iodin ated contrast intravenously. The patient was not given oral contrast material. COMPARISONS: 08/27/2017. FINDINGS: Clear lung bases. Liver, spleen, adrenals, and pancreas show no abnormality. Moderate hydroureteronephrosis on the LEFT down to the pelvis without evidence of a stone and could b e related to recently passed stone, urinary tract infection, sloughed papilla, or inflammation along the LEFT pelvic sidewall related to patient's colitis. 1.5 cm stone in the gallbladder with no inflammation and normal size biliary tree. Mild atherosclerosis aorta. No lymphadenopathy. Thickened mucosa with some pericolonic stranding transverse through rectosigmoid colon consistent wit h colitis with mild constipation. Two 2 cm pericolonic abscesses adjacent to the sigmoid colon that of appeared since previous study. No bowel obstruction. Normal appendix. Pelvis shows no masses or free fluid. Normal urinary bladder and reproductive organs. No acute bony abnormality. IMPRESSION: Colitis that's probably infectious with interval development of pericolonic abscesses adjacent to the sigmoid colon. Mild constipation. Unchanged moderate hydroureteronephrosis on the LEFT down to the pelvis with differential above. Cholelithiasis. No other acute change identified. ELECTRONICALLY SIGNED BY: Dimas Montiel MD September 06, 2019 2:55:58 AM CDT This report is intended for review by the ordering physician only, in accordance of law. If you recei ve this report in error, please call [facility] at [phone]. FINAL REPORT CT ABDOMEN AND PELVIS WITH IV CONTRAST: I agree with the preliminary report given by Dr. Dimas Montiel of [facility]. Comparison is also made with the exam of 06/23/2019. The small abscesses in the pelvis demonstrate mi ldly thickened navarro and a small amount of air and measure up to 2.5 cm. The left hydroureteronephro sis is similar.
[2019-09-06] MEDS ORDERED: Iopamidol-370 76% 500 ML 1 ML ONE (10:14)
[2019-09-06] MEDS ORDERED: Acetaminophen 325 MG Suppository PR PRN (11:17)
[2019-09-06] MEDS ORDERED: Acetaminophen 650 MG Suppository PR PRN (11:17)
[2019-09-06] MEDS ORDERED: Acetaminophen 325 MG TAB PO PRN (11:17)
[2019-09-06] MEDS ORDERED: Sodium Chloride 0.9% (PF) 10 ML VIAL FS PRN (11:32)
[2019-09-06] MEDS: Ondansetron PF 4 MG/2 ML Vial IVP PRN (12:24)
[2019-09-06] MEDS: MEROPENEM 1 GM/50 ML 1 GM in Premix Bag 1 BAG IVPB SCH ×2 (12:25→20:12)
[2019-09-06] MEDS: D5 1/2 NS w/20 mEq KCL 1,000 ML IV SCH ×2 (12:26→23:59)
[2019-09-06 13:00] LABS: INR-International Normal Ratio 0.9; Prothrombin Time 12.3 SEC (12.0-14.7)
[2019-09-06] MEDS ORDERED: Sodium Chloride 0.9% 10 ML ONE (13:24)
[2019-09-06] MEDS ORDERED: Midazolam HCl 2 mg/2 ml Vial ONE (13:24)
--- NOTE | 2019-09-06 14:17 | SPC ---
Left percutaneous nephrostomy catheter placement sonographic guided Conscious sedation: At least 20 minutes were spent with the patient for conscious sedation. FINDINGS: Left ureteral obstruction. Diverticulitis. FINDINGS: After explaining the procedure and answering all questions, the left back was prepped and d raped in usual sterile fashion. Sterile technique, buffered local anesthesia, sonographic guidance, and a left posterolateral flank approach were used to carefully advance a 21-gauge AccuStick needle t o the dilated left renal pelvis via a posterior calyx. AccuStick technique was used to place an 8 Ukrainian locking loop catheter into the dilated renal pelvis. Contrast remained within the dilated left renal collecting system from CAT scan on the previous day, indicating high-grade obstruction. Slightly cloudy yellow urine immediately drained. Catheter was secured externally with 0 silk suture and left draining to gravity. Patient tolerated the procedure well and was returned in unchanged condition. IMPRESSION : Technically successful left percutaneous nephrostomy catheter placement. Severe distal left ureteral obstruction.
[2019-09-06] MEDS ORDERED: Metoclopramide HCl 10 MG/2 ML VIAL IVP SCH (16:30)
--- NOTE | 2019-09-06 19:11 | HP ---
CHIEF COMPLAINT: Abdominal pain. HISTORY OF PRESENT ILLNESS: Ms. Jones is a 63-year-old woman, well known to me from a previous admission in 2018. She came in with severe diverticulitis and left hydronephrosis resulting from the diverticulitis. She underwent ureteral stent placement by Dr. Machado of Urology and followed up with me in the clinic. She had a partial colonoscopy over at the [facility], but they were unable to traverse her sigmoid colon, so she never had a complete colonoscopy and then she did not return to follow up after that point. She was apparently readmitted to the hospital back in June while I was out of town with recurrent diverticulitis and hydronephrosis. Percutaneous nephrostomy was recommended by Dr. Obrien of Urology, but the patient declined it and was discharged home. She was supposed to follow up as an outpatient for a nephrostomy tube placement, but apparently never did. She was also supposed to follow up in my clinic to plan definitive treatment of her diverticulitis and she did not do that either. She states that she had a PICC line placed and was going in for IV antibiotics, but then became very nervous with the COVID pandemic about going into the hospital for antibiotics, so switched over to oral antibiotics, which she has been on under Dr. Hanna' supervision since that time. She states that yesterday she had sudden onset of crampy lower abdominal pain which was quite severe and which did not relent despite having several fairly normal bowel movements. She denies any fevers or chills, but decided to come into the emergency room, where she was found to have worsening of her chronic sigmoid inflammation as well as a small diverticular abscess measuring about 2-1/2 cm in size as well as another 2 cm abscess in the vicinity. No free perforation or obstruction was seen. She had normal enhancement of her left kidney with persistent left hydronephrosis. She received IV antibiotics in the emergency room and was admitted to the surgical service. She states she is still having intermittent lower abdominal pain, which has improved by pain medication. She is having some nausea too, but that did not start until she received the pain medications, so she thinks that is a side effect of her medicine. She denies any flank pain or dysuria. PAST MEDICAL HISTORY: Anxiety and a possible TIA, which left her with some left-sided hand weakness, although this could also be related to her shoulder surgery that she had. She also complains about reflux and indigestion. PAST SURGICAL HISTORY: Ectopic , tubal ligation, cystoscopy and ureteral stent placement in 2018. SOCIAL HISTORY: The patient was trying to quit smoking, but recently smoking a lot more due to anxiety. She denies alcohol or illicit drugs. FAMILY HISTORY: Noncontributory. She does not have any history of GI malignancies that she knows of. ALLERGIES: SHE REPORTS ADVERSE DRUG REACTIONS TO CODEINE AND HYDROCODONE, WHICH CAUSE NAUSEA, FLAGYL, AND SULFA. SHE ALSO HAS A POSSIBLE ALLERGY TO PENICILLIN. SHE STATES THAT HER MOTHER TOLD HER THAT EITHER SHE OR HER BROTHER HAS SOME SORT OF REACTION TO IT A CHILD, BUT SHE DOES NOT KNOW WHAT THE REACTION WAS, OR WHETHER IT WAS HER OR HER BROTHER WHO HAD IT. SHE HAS TOLERATED CEFTRIAXONE AND MEROPENEM IN THE PAST. OUTPATIENT MEDICATIONS: Include Reglan, and 2 antibiotics which she was taking under Dr Hanna's supervision. REVIEW OF SYSTEMS: Ten-system review of systems is negative except per HPI and the following. The patient has significant vaginal prolapse. She is unsure whether this is anterior or posterior. This has been ongoing for several years. PHYSICAL EXAMINATION: VITAL SIGNS: The patient is afebrile since her admission. Heart rate 92, respirations 18, 98% saturated on room air, blood pressure 145/86. GENERAL: Reveals an anxious woman, in no acute distress. She is not flushed or toxic in appearance. She is not jaundiced or icteric. HEENT: Unremarkable. NECK: Supple without lymphadenopathy or thyroid nodules. HEART: Regular rate and rhythm without murmurs, rubs, or gallops. LUNGS: Clear to auscultation bilaterally. ABDOMEN: Soft and nondistended. She has minimal lower abdominal tenderness, but no rigidity, rebound, or guarding. No CVA tenderness. EXTREMITIES: Warm and well perfused without edema. NEUROLOGIC: No focal deficits. PSYCHIATRIC: Alert, oriented, and appropriate, but with significant anxiety, which is evident from her affect and history. LABORATORY DATA: White count is normal at 9.4, hematocrit 44.7, platelets 252. She does have a left shift with 81% neutrophils. Potassium slightly low at 3.2. Alkaline phosphatase is slightly high at 111. Other LFTs are normal. CT images are reviewed and I agree with the written report. She also appears to have a large gallstone, but a normal-sized biliary tree. No pericolonic fluid or thickening. ASSESSMENT: Recurrent or persistent diverticulitis. I suspect the latter. She has persistent hydronephrosis and has not been compliant with urologic recommendations for this. I have spoken with Dr. Obrien and he recommends placement of a percutaneous nephrostomy tube to decompress the kidney, following which he will evaluate renal function and if she has more than 20% renal function on that side , he will plan ultimately to reimplant the ureter into the bladder bypassing the involved segment due to its long-standing obstruction. She has diverticulitis with two small diverticular abscesses. These will likely respond to IV antibiotics, but her diverticulitis has not really subsided with multiple courses of antibiotics and I have recommended diversion with a laparoscopic colostomy. She also has a gallstone and frequent indigestion and reflux, which could be related to this, so we could potentially remove her gallbladder under the same anesthesia. I would prefer to defer addressing the sigmoid colon until the infectious process has a chance to subside, so we will plan on definitive sigmoid colectomy with reanastomosis in 3 -6 months' time. At that point, I would likely recommend a diverting ileostomy as she would need to undergo her ureteral implant and psoas hitch at the same time and if she had an anastomotic leak, this would be very difficult to access behind the reimplanted ureter. Once she has completely healed from her colon surgery, and we have imaging of the area to show that it has healed, we can take down the ileostomy as a 3rd procedure. She also has severe vaginal prolapse that is fairly symptomatic. Unfortunately, I am not sure what her surgical options are for this since it would be risky to use any mesh at the time of her sigmoid colectomy and after that it will be very difficult to access the pelvic floor. However, I will ask one of the gynecologists to assess her and discuss what her options might be. The patient has not had a complete colonoscopy due to the inability of the [facility] to traverse the sigmoid colon. She was supposed to follow up with Gastroenterology for a second colonoscopy, but apparently was unable to arrange this, so we will try to arrange this after her colostomy is placed to make sure that there are not any issues in the proximal colon. At the time of her sigmoidoscopy, the residents were worried about a possible villous adenoma, but multiple biopsies of the area of concern were negative for any malignant or premalignant abnormalities. Job ID: [id number] MTDD
[2019-09-06] MEDS: Enoxaparin Sodium 40 MG/0.4 ML SYRINGE SC SCH (20:13)
[2019-09-06] MEDS: Acetaminophen 325 MG TAB PO PRN (22:04)
--- NOTE | 2019-09-06 22:25 | CON ---
DATE OF CONSULTATION: 09/06/2019 TIME OF SERVICE: 1:30 p.m. CONSULTING PHYSICIAN: Bryant Smallwood MD, General Surgery. REASON FOR CONSULTATION: Pelvic prolapse. HISTORY OF PRESENT ILLNESS: A 63-year-old para 2, who was admitted to Dr. Smallwood's service for a pericolonic abscess for longstanding diverticulitis. Dr. Smallwood tells me that she is planning a diverting colostomy tomorrow and the patient will undergo an eventual very large procedure involving moving the bladder and reimplanting the ureters and is afraid that the pelvic access will no longer be possible following the procedure. That, however, will take place in several months after she cools down from the abscess. The patient reports a many year history of pelvic organ prolapse with incontinence associated with that. She reports that it has been going on for at least 10 years, but probably longer. She has seen her GP for this, but has not had anything done. REVIEW OF SYSTEMS: Positive for abdominal pain, but negative for head, eyes, ears, nose, throat, cardiovascular, respiratory, GI, , neuropsych, musculoskeletal, skin, or constitutional symptoms other than mentioned above. The patient was unable to give full history, as she was taken for a procedure during my interview, but her admission H&P was reviewed to complete the history. PAST MEDICAL HISTORY: 1. Possible history of TIA 2. Anxiety 3. Diverticulitis. 4. Uterine prolapse. PAST SURGICAL HISTORY: 1. Multiple dental extractions. 2. Ectopic with likely salpingectomy back in 1991. 3. Tubal ligation. CHARGE AIDE HISTORY: Two term spontaneous vaginal deliveries, history of ectopic and tubal ligations. SOCIAL HISTORY: Social alcohol use. Denies any drug use. Positive for tobacco use. ALLERGIES: CODEINE, METRONIDAZOLE, PENICILLIN, SULFA. MEDICATIONS: Reviewed. PHYSICAL EXAMINATION: VITAL SIGNS: Blood pressure 145/86, pulse 92, respiratory rate 18, temperature 98.4, O2 saturation 98% on room air. GENERAL: Awake, alert, no acute distress. Exam otherwise deferred. ASSESSMENT AND PLAN: A 63-year-old para 2 with reported significant pelvic organ prolapse, likely grade 3. I had a short discussion about possible options, but the patient was taken to do the procedure and our discussion was cut short. I did tell her that she will need to be referred to [facility] to see Dr. aCputo for examination and management discussion. She may be a candidate for a pessary versus possible surgery. A referral was faxed to the [facility] office. Thank you for this consultation. Please let us know if we can be of any further assistance. Job ID: [id number] MTDD
--- NOTE | 2019-09-06 23:09 | CON ---
DATE OF CONSULTATION: 09/06/2019 REASON FOR CONSULTATION: Recrudescence of left abdominal inflammatory process with pain. HISTORY OF PRESENT ILLNESS: A 63-year-old whom I had seen recently when she presented with a history of chronic smoking and diverticulitis in sigmoid area with chronic obstruction of the left kidney outflow tract and hydronephrosis. In 2017, patient had a stent placed by Dr. Machado at [facility]. She was supposed to have a colonoscopy, but that was never completed due to some personal issues and on June 23, she developed worsening pain in the right abdominal side. So an abdomen and pelvis CT showed cholelithiasis and sigmoid diverticulitis with distal ureter involvement and hydroureteronephrosis. When I went to see her, there was evidence of Staphylococcus aureus bacteremia, which had not been addressed. So an echo did not show any vegetations and she received protracted treatment with IV Rocephin in [place] after discharge with the intention of then fixing this colonic and inflammatory process in the concomitant obstructive uropathy. At the end of the treatment phase in [place], she had gone to [place] ER for her usual daily Rocephin dose when she found out that there was a COVID patient in the emergency room, so she immediately decided to interrupt the IV treatments. Considering all the intervening complications, I decided to switch her to oral regimen I believe with Cipro and rifampin. She had been taking this combination up until yesterday when she developed quite rapid progression of diffuse abdominal pain. No headaches. No vomiting. No respiratory symptoms other than her chronic dyspnea associated with obstructive lung disease. No genitourinary symptoms. Apparently, when the EMS went to pick her up, her temperature was 103, here her BP was 150/109 and a temperature was 97.6, O2 saturation 99, respirations 17, pulse 83. The only thing remarkable in the exam was tenderness in the abdominal area, mostly in the suprapubic region. Other findings included white cell count 9.4, hemoglobin 14.9, platelets 252 with 81% neutrophils and INR 0.9. Sodium 138, creatinine 0.63. Liver profile normal. Potassium 3.2. I do not have repeat blood cultures result yet. I do not think they were submitted either. PAST MEDICAL HISTORY: Chronic smoking, COPD, MSSA bacteremia, diverticulitis, left ureter obstruction, left-sided hydronephrosis, prior TIA. There is some history of ulcerative colitis in the past, although this is not very clear. ALLERGIES: PENICILLIN, SULFA DRUGS. FAMILY HISTORY: Noncontributory. 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 Lives by herself in [place]. Smokes daily. CURRENT MEDICATIONS: 1. Lovenox. 2. Meropenem. 3. Reglan. 4. Morphine. 5. Zofran. PHYSICAL EXAMINATION: VITAL SIGNS: Temperature 98.4, blood pressure 150/92, pulse 82, respirations 16-20, O2 saturation 95. SKIN: With the percutaneous nephrostomy tube in left flank. Peripheral IV access. No lymphadenopathy. HEENT: Ocular movements conjugate. Oral cavity with numerous missing teeth. NECK: Supple. LUNGS: With diminished breath sounds. No crackles or wheezing. S1, S2. Regular rate. No S3 or S4. ABDOMEN: Tender in the left flank area wrapping around the left abdomen. No bladder distention. EXTREMITIES: No joint inflammatory activity. No edema. Pulses 1+ in dorsalis pedis. Plantar responses are flexor. NEUROLOGIC: Awake, alert, oriented, follows commands and some element of distress after the procedure because of pain. ASSESSMENT: Chronic obstructive pulmonary disease, chronic smoking, chronic inflammatory process in left colon at the rectosigmoid area, possibly diverticulitis, although an alternate pathology has not yet been ruled out. This encases the left ureter with consequent left hydronephrosis, now with pain worsening in the area, status post percutaneous nephrostomy by Radiology. DISCUSSION: Patient is scheduled for exploration of the area by Dr. Smallwood tomorrow. I believe she is planning a colostomy and this current CT shows two areas of abscess formation in the pericolonic region adjacent to the sigmoid colon. It is possible that this area represents not just a simple case of diverticulitis, but she may have inflammatory bowel disease or malignancy and this will have to be further clarified hopefully via the tomorrow's surgical procedure. We will submit blood cultures to verify resolution of the Staphylococcus aureus bacteremia. The back pain the patient experienced it when she came to the hospital first time in June has completely resolved. We never able to image her spine but right now without any symptoms that I would not think that it would be necessary to carry out the test now. Maintain the same current antimicrobial therapy and then we will decide after the surgery what will be the regimen for discharge planning. Job ID: [id number]
[2019-09-06] MEDS ORDERED: ALPRAZolam 1 MG TAB PO PRN (23:18)
[2019-09-07] MEDS: MEROPENEM 1 GM/50 ML 1 GM in Premix Bag 1 BAG IVPB SCH ×3 (03:37→20:48)
[2019-09-07] MEDS: Morphine 2 MG/ML SYRINGE SLOW IVP PRN ×3 (03:38→20:47)
[2019-09-07] MEDS: Ondansetron PF 4 MG/2 ML Vial IVP PRN ×3 (04:10→20:57)
[2019-09-07] MEDS ORDERED: Morphine 2 MG/ML SYRINGE ONE (08:37)
[2019-09-07] MEDS ORDERED: EPINEPHrine 1 MG/ML AMP ONE ×2 (08:51→11:08)
[2019-09-07] MEDS ORDERED: Iothalamate Meglumine 60% 30 ML VIAL FS ONE (08:51)
[2019-09-07] MEDS ORDERED: Bupivacaine 0.25% HCL 30 ML VIAL ONE ×2 (08:51→11:08)
[2019-09-07] MEDS ORDERED: Fentanyl 100 MCG/2 ML VIAL ONE ×2 (09:03→12:06)
[2019-09-07] MEDS ORDERED: Rocuronium Bromide 10 MG/ML (10ML VIAL) ONE (09:23)
[2019-09-07] MEDS ORDERED: Dexamethasone 20 MG/5 ML VIAL ONE (09:23)
[2019-09-07] MEDS ORDERED: Ondansetron PF 4 MG/2 ML Vial ONE (09:23)
[2019-09-07] MEDS ORDERED: Lidocaine 1% PF 5 ML VIAL ONE (09:23)
[2019-09-07] MEDS ORDERED: PROPOFOL 200 MG/20 ML VIAL ONE (09:23)
[2019-09-07] MEDS ORDERED: Succinylcholine Chloride 20 MG/ML 10 ml SYRINGE FS ONE (09:23)
[2019-09-07] MEDS ORDERED: Glycopyrrolate 0.2 MG/ML 5 ML SYRINGE ONE (09:23)
[2019-09-07] MEDS ORDERED: Midazolam HCl 2 mg/2 ml Vial ONE (09:28)
[2019-09-07] MEDS: Pantoprazole 40 MG VIAL IVP SCH (09:53)
[2019-09-07] MEDS ORDERED: Ondansetron HCl/PF 4 MG/2 ML Vial IVP PRN (10:06)
[2019-09-07] MEDS ORDERED: Promethazine HCl 25 MG/ML VIAL SLOW IVP PRN (10:06)
[2019-09-07] MEDS ORDERED: Promethazine HCl 25 MG/ML VIAL IM PRN (10:06)
[2019-09-07] MEDS ORDERED: D5 1/2 NS w/20 mEq KCL 1,000 ML ONE (12:31)
[2019-09-07] MEDS ORDERED: traMADol HCl 50 MG TAB PO PRN (13:05)
[2019-09-07] MEDS: D5 1/2 NS w/20 mEq KCL 1,000 ML IV SCH ×2 (13:45→20:49)
--- NOTE | 2019-09-07 14:48 | PDOC.OP ---
Operative Note - Operative Note Operative Note: DATE OF PROCEDURE: 09/07/2019 PROCEDURES: Laparoscopic cholecystectomy and laparoscopic diverting descending colostomy. SURGEON: Bryant Smallwood M.D. PREOPERATIVE DIAGNOSIS: Recurrent/persistent sigmoid diverticulitis with abscess formation and hydronephrosis, symptomatic gallstone. POSTOPERATIVE DIAGNOSIS: Recurrent/persistent sigmoid diverticulitis with abscess formation and hydronephrosis, symptomatic gallstone. FINDINGS: Inflamed appearing sigmoid colon without any external abnormalities, with dense adhesions to pelvic lateral sidewall and to adjacent small bowel but no evidence of obstruction. Chronically distended gallbladder with adhesions to duodenum. HISTORY: Patient with diverticulitis and left hydronephrosis since summer 2017. She was supposed to return for sigmoid colectomy but was lost to follow- up and represented with worsening diverticulitis in June. She was treated with antibiotics and discharged but returned again this month with worsening pain. Recommendation was made to proceed with diversion to allow the inflammatory changes to resolve, with plans to return at a later date for sigmoid colectomy re-anastomosis and ureteral reimplantation with psoas hitch. The patient also reports symptoms of biliary colic and was found to have a large gallstone. Laparoscopic cholecystectomy was recommended for symptomatic relief. Preoperative bilirubin and transaminases were normal and bile duct was normal caliber on preoperative imaging. PROCEDURE: After informed consent was obtained and appropriate preoperative antibiotics were administered, the patient was taken to the operating room and placed in the supine position and general endotracheal anesthesia was administered. The stomach was decompressed with an OG tube and the abdomen was prepped and draped in standard sterile fashion. Local anesthesia was infused to the skin and subcutaneous tissues at the umbilical level. A transverse skin incision was made. The fascia was elevated and a Veress needle was placed into the abdominal cavity without difficulty. Opening pressure was less than 5 and carbon dioxide gas easily insufflated to an intra-abdominal pressure of 15, which the patient tolerated well. The Veress needle was withdrawn and a [place] port advanced under direct vision. The abdominal cavity was carefully examined. There was no evidence of Veress needle or of trocar injury. Local anesthesia was infused to the skin and subcutaneous tissues at the epigastric, right upper quadrant, and right lateral abdominal sites and trocars were placed under direct vision of the laparoscope. The fundus of the gallbladder was grasped and retracted superiorly. The infundibulum was grasped and retracted laterally. The serosa was stripped inferiorly at the level of the neck of the gallbladder exposing the cystic duct and artery which were traced clearly to their insertion in the gallbladder. Critical view of safety was obtained and the cystic duct and artery were clipped and divided between clips. The gallbladder was then dissected free of the gallbladder bed using hook electrocautery. Prior to complete removal of the gallbladder from the gallbladder bed, the area of the cystic duct and artery stumps was examined. The gallbladder was placed over the right dome of the liver for later retrieval. The clips were in good position completely across these structures and there was no bleeding and no leakage of bile. The epigastric trocar was replaced and the operative site easily irrigated to clear. There was no significant bleeding or spillage of bile. The epigastric trocar was removed and the fascia closed under direct laparoscopic vision with a 0 Vicryl suture on a GraNee needle in a [id number] manner with excellent technical result. The right lateral trocar was replaced with a 12 mm trocar under direct laparoscopic vision. Attention was turned to diverting descending colostomy. There were some omental adhesions in the left lower quadrant which were taken down through the avascular plane allowing the omentum to be drawn up out of the operative field. The descending colon was somewhat distended but otherwise normal in appearance and soft and compressible. The sigmoid colon appeared chronically inflamed and was densely adherent to the lateral sidewall. Attempts were made to draw the small bowel up out of the pelvis but the patient was found to have chronic appearing adhesions between the small bowel and the sigmoid colon. These were nonobstructing in nature and were not taken down. The area of the pelvic abscesses was examined but a plane was unable to be easily developed between the sigmoid and the pelvic wall and some venous oozing was encountered so further attempts at draining the abscesses were abandoned. The descending colon was mobilized medially by incising the white line of Toldt. The LigaSure device was used to create a window through the mesentery of the distal descending colon immediately adjacent to the wall of the bowel and a laparoscopic stapler placed through this window and fired, dividing the colon. The colon was found to easily reach to the left lower quadrant abdominal wall without tension. The right lateral trocar was then removed and the fascial incision closed with a 0 Vicryl suture in a GraNee needle under direct laparoscopic vision with excellent technical result. Local anesthesia was infused to the skin and subcutaneous tissues overlying the left lower quadrant rectus sheath and an elliptical incision made dissection was carried down to the rectus sheath which was incised in a cruciate manner. The rectus muscles were split and divided and the posterior rectus sheath likewise incised and dilated. The gallbladder was brought out through this incision and sent to pathology. The descending colon was then brought out through the incision and oriented in the correct anatomic position. This was secured to the anterior rectus sheath with Lembert sutures circumferentially. The right upper quadrant trocar was removed under laparoscopic vision and hemostasis verified. Carbon dioxide gas was then allowed to desufflate through the umbilical trocar which was removed. Additional local anesthesia was infused at the various skin incisions and all of the laparoscopic incisions were closed with 4-0 Monocryl sutures and Dermabond dressings placed. The colostomy was then matured by excising the staple line and creating a salamatof type colostomy. Full-thickness bites of the edge of the colon were secured to muscular serosal bites of the colon a few centimeters proximal and then to the dermis at 4 quadrants and the dermis secured at multiple points between the sutures to the full-thickness edge of the colon. The colostomy was digitally interrogated and widely patent. A colostomy appliance was placed and the patient was extubated and taken to recovery in good condition. Estimated blood loss was minimal. There were no complications. SPECIMEN : Gallbladder and contents.
--- NOTE | 2019-09-07 17:11 | PRG ---
DATE OF SERVICE: 09/07/2019 SUBJECTIVE: Ms. Jones had a colostomy done and also cholecystectomy by Dr. Smallwood. She found matted loops of large and small bowel in the left lower quadrant and those loops seem to be viable. The procedure was a laparoscopic procedure. Right now, Ms. Jones is in the immediate postop. She is doing actually pretty good. Little bit of pain. No respiratory symptoms, voiding without issues. OBJECTIVE: VITAL SIGNS: T-max 99.6, blood pressure 137/80, pulse 90, respirations 18, and O2 saturations 94% to 95%. GENERAL: Awake, alert, and oriented. LUNGS: Symmetric. Clear breath sounds. HEART: S1 and S2, regular rate. ABDOMEN: With [id number] tenderness, no distention. Moves extremities equally. LABORATORY DATA: No new labs are noted. ASSESSMENT AND DISCUSSION: Chronic obstructive lung disease, smoking, chronic inflammatory process in the left colon likely due to chronic diverticulitis, small little abscesses as well. All those areas are matted together and she had a colostomy for diversion purposes and a cholecystectomy as well. The plan will be to switch her to oral Cipro and Augmentin. She could not tolerate Flagyl in the past and continue Cipro and Augmentin for a while and see if this inflammatory process improves. I do not know if she is going to ever be able to have the continuity of the colon re-established, but certainly would be pretty daunting surgical procedure to carry out. Job ID: [id number]
[2019-09-07] MEDS: traMADol HCl 50 MG TAB PO PRN (19:23)
[2019-09-07] MEDS: Enoxaparin Sodium 40 MG/0.4 ML SYRINGE SC SCH (20:48)
[2019-09-08] MEDS: D5 1/2 NS w/20 mEq KCL 1,000 ML IV SCH ×5 (00:55→17:57)
[2019-09-08] MEDS: Morphine 2 MG/ML SYRINGE SLOW IVP PRN ×9 (00:56→21:50)
--- NOTE | 2019-09-08 03:08 | CON ---
DATE OF CONSULTATION: 09/07/2019 CONSULTING PHYSICIAN: Bryant Smallwood MD REASON FOR CONSULTATION: Hydronephrosis. HISTORY OF PRESENT ILLNESS: Ms. Jones is a 63-year-old white female with severe diverticulitis, which has been apparently festering for months. She has a large phlegmon in her pelvis, which has resulted in obstruction of her left ureter and chronic left hydronephrosis. On her last hospital admission, I had strongly recommended a nephrostomy tube placement, but the patient declined stating that she wanted to stay as she was. She has been readmitted to the hospital again on September 05 with complaints of abdominal pain and nausea. Dr. Smallwood had planned to perform a diverting colostomy as well as a cholecystectomy given her gallstones and indigestion with reflux. She did speak with me and I had recommended that. Given the previous plan, I still recommended the patient get a nephrostomy tube. Prior to my arrival to see the patient, she did get the nephrostomy tube as Dr. Smallwood had ordered this per my recommendations. Currently, on my discussion with the patient, she states that she is having a lot of abdominal pain after her surgery. Her back pain is relatively mild. She stated she had a lot of hematuria from the nephrostomy tube after the nephrostomy tube placement, but subsequently it has cleared up. Currently, she still has again the abdominal pain and some nausea, but otherwise states that she is doing okay. PAST MEDICAL HISTORY: 1. Anxiety. 2. Possible TIA. 3. Gastroesophageal reflux disease. 4. Chronic diverticulitis. 5. Left-sided hydronephrosis. 6. Ectopic . PAST SURGICAL HISTORY: 1. Ectopic debridement. 2. Tubal ligation. 3. Left ureteral stent [place] [address] Machado. ALLERGIES: 1. CODEINE. 2. HYDROCODONE. 3. FLAGYL. 4. SULFA. 5. PENICILLIN. 6. CEFTRIAXONE. HOME MEDICATIONS: 1. Keflex. 2. Rifampin. 3. Reglan. SOCIAL HISTORY: The patient smokes, but is trying to quit. Denies alcohol or illicit drug use. FAMILY HISTORY: Noncontributory. REVIEW OF SYSTEMS: A 12-point review of systems reviewed with the patient was negative other than what was commented on the HPI specifically the abdominal pain, nausea and vomiting. PHYSICAL EXAMINATION: VITAL SIGNS: Temperature 99.2, pulse 90, respirations 18, blood pressure 137/80, saturation 94% on room air. GENERAL: Appear somewhat uncomfortable, but is otherwise communicative and alert, answering questions appropriately. HEENT: Normocephalic, atraumatic. Pupils are symmetric and round. Trachea midline. Moist mucous membranes. CARDIOVASCULAR: Regular rate and rhythm. Normal S1, S2. Symmetric pulses. CHEST: No increased work of breathing. Symmetric expansion. LUNGS: Clear anteriorly. ABDOMEN: Soft, tender to palpation, newly performed colostomy in place. Incision is clean, dry, and intact. Nondistended. Slightly hypoactive bowel sounds. BACK: Left-sided nephrostomy tube in place draining slightly bloody urine. : Deferred at this time. EXTREMITIES: No clubbing, cyanosis, or edema. MUSCULOSKELETAL: No joint deformity or joint erythema noted. Full range of motion. SKIN: Warm, dry. No rashes or lesions. Good turgor. PSYCHIATRIC: Alert and oriented x3. Appropriate mood and affect. NEUROLOGIC: Cranial nerves 2 through 12 appear grossly intact. There is mild left-sided weakness, but otherwise no major other neurological deficits. LABORATORY EVALUATION: Full set of labs are in the [facility] system, which I have reviewed. Of note, the patient's white count is 9.4 with hemoglobin of 14.9 as of September 05. Creatinine is 0.63 also as of September 05. No new labs have been done since then. ASSESSMENT AND PLAN: A 63-year-old white female with left hydronephrosis secondary to a large phlegmon in her left renal pelvis, status post percutaneous nephrostomy tube placement as well as lap cholecystectomy and colostomy creation. At the current time, I would not recommend any further interventions from a urologic standpoint. I think she probably needs to cool off from her current surgery. She also needs to have some time to allow for recovery of her left renal function given that it is now decompressed. After approximately 4 weeks, I would recommend that she follow up with me as an outpatient, at which point, we will plan for a renal scan, either DMSA or MAG3 to assess differential renal function. If her left kidney has less than 20% renal function, I would recommend removing the nephrostomy tube and allowing the left kidney to . If it has more than 20% function, then I would recommend ureteral reimplant, which will need to be done as a final surgery after Dr. Smallwood has performed a sigmoidectomy at the time that the reanastomosis has been planned. Once a psoas hitch ureteral reimplant is performed, it probably will not be able to access the sigmoid colon anymore. Therefore, I have discussed with Dr. Smallwood this will need to be the last surgery done and can be done in conjunction with her last surgery. For now, I will go ahead and sign off as there is not really anything else for me to do. I will be available if necessary, but I would leave the nephrostomy tube to gravity drainage and the patient again will be to follow up with me in approximately 4 weeks with a renal scan, which I will arrange for after she is discharged. Job ID: [id number]
[2019-09-08] MEDS: MEROPENEM 1 GM/50 ML 1 GM in Premix Bag 1 BAG IVPB SCH ×3 (05:29→21:37)
[2019-09-08] MEDS: Ondansetron PF 4 MG/2 ML Vial IVP PRN ×3 (05:52→19:54)
[2019-09-08 09:28] LABS: #Lymphocytes 1.3 thou/uL (1.20-3.40); #Monocytes 0.8 thou/uL (0.11-0.59); #Neutrophils 6.3 thou/uL (1.40-6.50); %Basophils 0.5 % (0.0-1.0); %Eosinophils 0.5 % (0.0-10.0); %Lymphocytes 15.2 % (21.0-51.0); %Monocytes 9.8 % (0.0-10.0); %Neutrophils 74.1 % (42.0-75.0); Mean Corpuscular HGB CONC 33.4 g/dL (32.0-36.0); Mean Corpuscular Hemoglobin 33.5 pg (27.0-31.0); Mean Platelet Volume 6.5 fL (7.4-10.4); Platelet Count 183 thou/uL (130-400); RBC Distribution Width 13.1 % (11.5-14.5); Red Blood Cell (RBC) Count 2.99 mill/uL (4.20-5.40); White Blood Cell (WBC) Count 8.5 thou/uL (4.8-10.8)
[2019-09-08] MEDS: Pantoprazole 40 MG VIAL IVP SCH (09:29)
[2019-09-08 09:46] LABS: Anion Gap 9 mmol/L (10-20); BUN (Urea Nitrogen) Less than 4 mg/dL (9.8-20.1); Calc. Creatinine Clearance 85 mL/min (70-130); Calcium 8.2 mg/dL (7.8-10.44); Carbon Dioxide 29 mmol/L (23-31); Chloride 101 mmol/L (98-107); Estimated GFR-MDRD Greater than 90; Glucose 130 mg/dL (80-115); Potassium 3.6 mmol/L (3.5-5.1); Sodium 135 mmol/L (136-145)
--- NOTE | 2019-09-08 10:13 | PDOC.GSPN ---
Surgery Progress Note: Subj - Subjective Narrative: Patient is feeling a little better today. She is still having incisional pain but that has improved. Some nausea but no vomiting. Tolerating small amounts of clears. No flatus or stool through her ostomy yet. Incisions look good. Colostomy is edematous but viable. Abdomen is slightly distended. Vital signs are good and white count is normal. Renal function is normal and nephrostomy tube output is clear. Assessment/plan: Doing well status post diverting laparoscopic colostomy and laparoscopic cholecystectomy. Nephrostomy tube is functioning well. I will ask wound care to teach her colostomy care we will try to set up home health to help her with her nephrostomy tube management and also her colostomy care postoperatively. Once her bowel function has resumed we will transition her to oral antibiotics and discharge her home. She will need an outpatient colonoscopy sometime next month. Surgery Progress Note: Obj - Vital signs Vital signs: Vital Signs - Most Recent Temp Pulse Resp BP Pulse Ox 99.4 F 90 18 128/82 93 L 09/08/19 08:03 09/08/19 08:03 09/08/19 08:03 09/08/19 08:03 09/08/19 08:03 Surgery Progress Note: Results - Labs Result Diagrams: 09/08/19 09:11 09/08/19 09:11 Lab results: Laboratory Results - last 24 hr 09/08/19 09/08/19 09:11 09:11 WBC 8.5 RBC 2.99 L Hgb 10.0 L Hct 30.0 L MCV 100.0 H MCH 33.5 H MCHC 33.4 RDW 13.1 Plt Count 183 MPV 6.5 L Neutrophils % 74.1 Lymphocytes % 15.2 L Monocytes % 9.8 Eosinophils % 0.5 Basophils % 0.5 Neutrophils # 6.3 Lymphocytes # 1.3 Monocytes # 0.8 H Eosinophils # 0.0 Basophils # 0.0 Sodium 135 L Potassium 3.6 Chloride 101 Carbon Dioxide 29 Anion Gap 9 L BUN Less than 4 L Creatinine 0.60 Estimated GFR (MDRD) Greater than 90 Glucose 130 H Calcium 8.2
[2019-09-08] MEDS: Enoxaparin Sodium 40 MG/0.4 ML SYRINGE SC SCH (21:37)
[2019-09-09] MEDS: Morphine 2 MG/ML SYRINGE SLOW IVP PRN ×6 (00:47→21:37)
[2019-09-09] MEDS: Ondansetron PF 4 MG/2 ML Vial IVP PRN ×3 (03:46→21:37)
[2019-09-09] MEDS: MEROPENEM 1 GM/50 ML 1 GM in Premix Bag 1 BAG IVPB SCH ×3 (03:47→20:05)
[2019-09-09] MEDS: traMADol HCl 50 MG TAB PO PRN ×3 (07:21→20:13)
[2019-09-09] MEDS: Acetaminophen 325 MG TAB PO PRN (07:21)
[2019-09-09] MEDS: Pantoprazole 40 MG VIAL IVP SCH (09:00)
--- NOTE | 2019-09-09 13:16 | PDOC.GSPN ---
Surgery Progress Note: Subj - Subjective Narrative: Patient is having some nausea today as well as some crampy diffuse abdominal pain. The lower abdominal pain has subsided somewhat. She did pass a little bit of gas through the ostomy yesterday. I examined the ostomy digitally and it is edematous but viable and patent. After my exam the patient did pass of a fair amount of gas through the ostomy but she is still feeling little nauseated. I encouraged her to go slowly on oral intake and to ambulate frequently. She still has IV fluids running. We are going to try to decrease her morphine usage as this is likely contributing to her slow return of bowel function. Once her bowel function returns and she is tolerating a diet, she can be discharged home on oral antibiotics. We are going to try to get some home health visits to help her with nephrostomy and ostomy care. Dr. Gordon is covering over the weekend. Surgery Progress Note: Obj - Vital signs Vital signs: Vital Signs - Most Recent Temp Pulse Resp BP Pulse Ox 98.5 F 83 16 111/69 93 L 09/09/19 10:46 09/09/19 10:46 09/09/19 10:46 09/09/19 10:46 09/09/19 10:46 Surgery Progress Note: Results - Labs Result Diagrams: 09/08/19 09:11 09/08/19 09:11
[2019-09-09] MEDS: D5 1/2 NS w/20 mEq KCL 1,000 ML IV SCH (14:07)
--- NOTE | 2019-09-09 14:44 | PRG ---
DATE OF SERVICE: 09/09/2019 SUBJECTIVE: Dr. Smallwood did some digital manipulation of the ostomy, some gas came out. The patient has been having some crampy abdominal pain and quite significant nausea, but no vomiting. She did some walking today food intake has been reduced somewhat. The patient has no respiratory symptoms. She voids and then she has nephrostomy output as well. OBJECTIVE: VITAL SIGNS: T-max 99.6, BP 111/69, pulse 83, respirations 16 to 18 O2 saturations dropped a bit to 93%. GENERAL: She is awake, little bit of distress from the abdominal issues. No headaches. LUNGS: No cough or sputum production. No dyspnea. No chest pain. ABDOMEN: Moderately distended. Bowel sounds are increased, sort of high- pitched bowel sounds. Bladder is not distended. The output from the nephrostomy had been clear and then has started to be hemorrhagic again. The colostomy appears healthy, little bit edematous. EXTREMITIES: No edema in lower extremities. NEUROLOGIC: Cognitive function appears to be intact. LABORATORY DATA: White cell count 8.5 yesterday, hemoglobin 10, platelets 183. Creatinine 0.6. The pathology of the gallbladder showed chronic cholecystitis. ASSESSMENT AND DISCUSSION: Chronic obstructive pulmonary disease, smoking, chronic inflammatory process in the left colon likely due to chronic diverticulitis, small areas of abscesses in the area as well. All those things were matted together. Colostomy for diversion and then cholecystectomy. The left kidney obstruction has been approached via percutaneous nephrostomy for the moment and subsequently, the testing of the kidney function will be carried out to see if she needs to have a nephrectomy or not. In the future, eventually, she will need resection of the inflammatory mass. continuity depending on the resolution of this process as well as the resumption of left kidney function results. She will have to continue on IV antimicrobial therapy for the moment until there is improvement of her bowel function and decrease in nausea, so she can be switched to oral antimicrobials. Job ID: [id number] [facility]
[2019-09-09] MEDS: Docusate 100 MG CAP PO SCH (20:05)
[2019-09-09] MEDS: Enoxaparin Sodium 40 MG/0.4 ML SYRINGE SC SCH (20:05)
[2019-09-10] MEDS: D5 1/2 NS w/20 mEq KCL 1,000 ML IV SCH ×2 (03:54→17:13)
[2019-09-10] MEDS: Morphine 2 MG/ML SYRINGE SLOW IVP PRN ×6 (03:55→23:58)
[2019-09-10] MEDS: MEROPENEM 1 GM/50 ML 1 GM in Premix Bag 1 BAG IVPB SCH ×3 (03:55→20:56)
[2019-09-10] MEDS: traMADol HCl 50 MG TAB PO PRN (06:21)
[2019-09-10] MEDS: Pantoprazole 40 MG VIAL IVP SCH (08:34)
[2019-09-10] MEDS: Docusate 100 MG CAP PO SCH ×2 (08:34→20:57)
[2019-09-10] MEDS: Ondansetron PF 4 MG/2 ML Vial IVP PRN ×2 (08:34→18:35)
--- NOTE | 2019-09-10 09:26 | PRG ---
DATE OF SERVICE: 09/10/2019 Ms. Jones is complaining of nausea this morning, but no vomiting. She has a small amount of air in her back. Her wounds are clear. She is afebrile. Vital signs are stable. She is ambulating without difficulty. ASSESSMENT: Postoperative diverting colostomy, persistent nausea. PLAN: Slow advance of diet. Continue pain control with tramadol and morphine. Home when ileus resolves. Job ID: [id number]
[2019-09-10] MEDS: Enoxaparin Sodium 40 MG/0.4 ML SYRINGE SC SCH (20:58)
[2019-09-10] MEDS: Acetaminophen 325 MG TAB PO PRN (21:07)
[2019-09-11] MEDS: MEROPENEM 1 GM/50 ML 1 GM in Premix Bag 1 BAG IVPB SCH ×3 (04:21→20:19)
[2019-09-11] MEDS: Morphine 2 MG/ML SYRINGE SLOW IVP PRN (04:22)
[2019-09-11] MEDS: D5 1/2 NS w/20 mEq KCL 1,000 ML IV SCH (04:22)
[2019-09-11] MEDS ORDERED: Acetaminophen 325 MG TAB PO PRN ×2 (08:34→10:34)
[2019-09-11] MEDS: Docusate 100 MG CAP PO SCH ×2 (09:01→21:35)
[2019-09-11] MEDS: Pantoprazole 40 MG VIAL IVP SCH (09:01)
[2019-09-11] MEDS ORDERED: Ibuprofen 600 MG TAB PO PRN (09:18)
--- NOTE | 2019-09-11 09:29 | PRG ---
DATE OF SERVICE: 09/11/2019 SUBJECTIVE: Ms. Jones's nausea is improved. She is eating some regular type foods. She is ambulating, afebrile. OBJECTIVE: VITAL SIGNS: Stable. ABDOMEN: Soft, minimally distended. Wounds are healing well. There was lots of air and stool in her bag. ASSESSMENT: Postop diverting colostomy, improved clinically. PLAN: Hep-Lock IV fluids. Discontinue morphine at her home. We will add her home Xanax and likely ready for discharge soon. Job ID: [id number]
[2019-09-11] MEDS: ALPRAZolam 0.25 MG TAB PO PRN ×2 (10:19→18:45)
[2019-09-11] MEDS: Enoxaparin Sodium 40 MG/0.4 ML SYRINGE SC SCH (20:21)
[2019-09-12] MEDS: traMADol HCl 50 MG TAB PO PRN ×2 (00:23→05:09)
[2019-09-12] MEDS: ALPRAZolam 0.25 MG TAB PO PRN (03:43)
[2019-09-12] MEDS: MEROPENEM 1 GM/50 ML 1 GM in Premix Bag 1 BAG IVPB SCH ×2 (03:43→13:29)
[2019-09-12] MEDS ORDERED: Ondansetron ODT 8 MG TAB SL PRN (09:16)
[2019-09-12] MEDS: Docusate 100 MG CAP PO SCH (09:18)
[2019-09-12] MEDS ORDERED: Amoxicillin/Potassium Clav 875 MG TAB PO SCH ×2 (09:30→21:00)
--- NOTE | 2019-09-12 09:41 | DIS ---
DATE OF ADMISSION: 09/06/2019 DATE OF DISCHARGE: 09/11/2019 ADMIT DIAGNOSIS: Ruptured sigmoid diverticulitis localized with secondary hydronephrosis. DISCHARGE DIAGNOSIS: Ruptured sigmoid diverticulitis localized with secondary hydronephrosis. PROCEDURE PERFORMED: 1. Diverting colostomy by Dr. Smallwood without complication. 2. Percutaneous nephrostomy tube without complication. CONDITION ON DISCHARGE: Improved. STAFF: Cl. HOSPITAL COURSE: The patient was admitted with recurrent severe diverticulitis. Due to her severe localized inflammation, resection was not possible. She had a percutaneous drain placed for her severe left-sided hydronephrosis. She underwent diverting colostomy by Dr. Smallwood. Postop course was uneventful. On the day of discharge, she is complaining of nausea, but she wants to go home. Discussed with Dr. Hanna. Prescriptions for Cipro and Augmentin sent to her pharmacy, that is what she will take. She will not take the rifampin. Prescription for Zofran sent as well. She has Home Health set up for nephrostomy tube and colostomy care. Job ID: [id number]
[2019-09-12] MEDS ORDERED: Ondansetron ODT 4 MG TAB PO PRN (09:42)
[2019-09-12 10:59] VITALS: BP 129/82; TEMP 97.8
--- NOTE | 2019-09-15 16:35 | EKG ---
Test Reason : Blood Pressure : / mmHG Vent. Rate : 066 BPM Atrial Rate : 066 BPM P-R Int : 168 ms QRS Dur : 088 ms QT Int : 478 ms P-R-T Axes : 066 055 063 degrees QTc Int : 501 ms Normal sinus rhythm with sinus arrhythmia Prolonged QT Abnormal ECG Confirmed by JOSEPH BASS ([id number]), editorial cartoonist COURTNEY WILSON ([id number]) on 09/15/2019 4:34:23 PM Referred By: Confirmed By:JOSEPH BASS
== END 2019-09-12 16:29 | disposition home or self-care (01) | DRG 330 ==
LOC: ERS 01:09 → SURG B 03:32
PROVIDERS: ADMIT Surgery; ATTEND Surgery
PROC: 0T9430Z Drainage of Left Kidney Pelvis with Drainage Device, Percutaneous Approach (ICD-10-PCS; 2019-09-06)
PROC: 0D1M4Z4 Bypass Descending Colon to Cutaneous, Percutaneous Endoscopic Approach (ICD-10-PCS; principal; 2019-09-07)
PROC: 0FT44ZZ Resection of Gallbladder, Percutaneous Endoscopic Approach (ICD-10-PCS; 2019-09-07)
DX: K57.20 Diverticulitis of large intestine with perforation and abscess without bleeding (principal); N13.39 Other hydronephrosis; F41.9 Anxiety disorder, unspecified; J44.9 Chronic obstructive pulmonary disease, unspecified; F17.200 Nicotine dependence, unspecified, uncomplicated; K80.80 Other cholelithiasis without obstruction; K21.9 Gastro-esophageal reflux disease without esophagitis; R11.0 Nausea; Z98.51 Tubal ligation status; Z86.73 Personal history of transient ischemic attack (TIA), and cerebral infarction without residual deficits; Z88.3 Allergy status to other anti-infective agents; Z88.0 Allergy status to penicillin; Z88.2 Allergy status to sulfonamides; Z88.1 Allergy status to other antibiotic agents; Z79.899 Other long term (current) drug therapy; N73.9 Female pelvic inflammatory disease, unspecified
CPT/HCPCS: 36415; 50430; 50432; 74177; 80048; 80053; 83690; 85025; 85610; 85730; 88304; 93005; 96365; 96375; C9113; J0171; J0360; J0696; J1100; J1610; J1650; J2001; J2185; J2250; J2270; J2405; J2704; J2765; J3010; J3480; Q0162; Q9967; S0020

== ENCOUNTER 2019-09-28 20:26 | Inpatient (IN) | payer OTHER, SELFPAY ==
[~2019-09-28 20:26] MED LIST changes: -Iopamidol-370 76% 500 ML 1 ML ONE
[2019-09-28] MEDS ORDERED: Ondansetron PF 4 MG/2 ML Vial SLOW IVP PRN (20:43)
[2019-09-28] MEDS: Fentanyl 100 MCG/2 ML VIAL SLOW IVP PRN (20:59)
[2019-09-28] MEDS: D5 1/2 NS w/20 mEq KCL 1,000 ML IV SCH (21:00)
[2019-09-28 21:14] VITALS: BMI 17.7
[2019-09-28] MEDS ORDERED: MEROPENEM 1 GM/50 ML 1 GM in Premix Bag 1 BAG IVPB SCH (22:45)
[2019-09-28] MEDS: Acetaminophen 325 MG TAB PO PRN (23:43)
[2019-09-28] MEDS ORDERED: Piperacillin/Tazobactam 3.375 GM in Sodium Chloride 0.9% 100 ML IVPB SCH (23:59)
[2019-09-29] MEDS: Fentanyl 100 MCG/2 ML VIAL SLOW IVP PRN ×2 (00:35→04:38)
[2019-09-29] MEDS: D5 1/2 NS w/20 mEq KCL 1,000 ML IV SCH ×5 (04:39→22:29)
[2019-09-29] MEDS: MEROPENEM 1 GM/50 ML 1 GM in Premix Bag 1 BAG IVPB SCH ×3 (06:07→22:29)
[2019-09-29] MEDS: Acetaminophen 325 MG TAB PO PRN ×2 (06:15→15:44)
[2019-09-29] MEDS: Morphine 4 MG/ML VIAL SLOW IVP PRN ×6 (09:00→22:30)
[2019-09-29] MEDS ORDERED: Acetaminophen 325 MG TAB PO PRN (09:08)
[2019-09-29] MEDS ORDERED: traMADol HCl 50 MG TAB PO PRN ×2 (09:10)
[2019-09-29] MEDS ORDERED: Midazolam HCl 2 mg/2 ml Vial ONE (13:04)
[2019-09-29] MEDS ORDERED: Sodium Bicarbonate 2.5 MEQ/5 ML VIAL ONE (13:04)
[2019-09-29] MEDS ORDERED: Fentanyl 100 MCG/2 ML VIAL ONE (13:04)
[2019-09-29] MEDS ORDERED: Ondansetron PF 4 MG/2 ML Vial ONE (13:53)
[2019-09-29] MEDS: Ondansetron PF 4 MG/2 ML Vial IVP PRN ×2 (14:00→22:32)
[2019-09-29 15:34] LABS: RBC Count-Automated (BF) 135279 /cu.mm
--- NOTE | 2019-09-29 15:54 | CT ---
Left lower quadrant abscess drainage CT-guided HISTORY: Abdominal abscess FINDINGS: After explaining the procedure and answering all questions, limited CT imaging of the pelvi s was performed. Sterile technique, buffered local anesthesia, CT guidance, and a left anterior approach were used to carefully advance a 19-gauge trocar needle into the complex left lower quadrant complex fluid collection. 0.035 Amplatz wire was placed to hold position. Tract was serially dilated to 10 Wolof. A locking lo op 10 Wolof all-purpose drain was placed. Approximately 20 cc of foul-smelling bloody material was aspirated and sent to laboratory for analysis. Catheter was secured externally with 0 silk suture and left draining to gravity. Patient tolerated the procedure well and was returned in improved condition. IMPRESSION : Technically successful CT-guided drainage left lower quadrant abscess.
[2019-09-29 16:12] LABS: WBC/Nucleated-Auto (BF) Greater than 51000 uL
[2019-09-29 16:14] LABS: BF Color Red; Body Fluid Source Abscess Fluid; Clarity Cloudy/Turbid (Clear); Tube # EDTA
[2019-09-29] MEDS ORDERED: Ondansetron PF 4 MG/2 ML Vial SLOW IVP SCH (16:15)
[2019-09-29] MEDS: Ketorolac Tromethamine 30 MG/ML VIAL IVP PRN (16:45)
[2019-09-30] MEDS: Acetaminophen 325 MG TAB PO PRN ×3 (00:03→16:10)
[2019-09-30] MEDS: Morphine 4 MG/ML VIAL SLOW IVP PRN ×6 (01:19→20:20)
[2019-09-30] MEDS: Ondansetron PF 4 MG/2 ML Vial IVP PRN (06:08)
[2019-09-30] MEDS: MEROPENEM 1 GM/50 ML 1 GM in Premix Bag 1 BAG IVPB SCH ×3 (06:08→21:22)
--- NOTE | 2019-09-30 09:04 | HP ---
CHIEF COMPLAINT: Abdominal pain. HISTORY OF PRESENT ILLNESS: Ms. Jones is a 63-year-old woman, well known to me from previous admissions, who presented [place] the emergency room in [place] neighborhood with worsening abdominal pain for about 2 days. She states that she developed left lower quadrant pain the day before her admission. She had an appointment with me in the clinic, but called to reschedule because she was not feeling well enough to come. She was actually scheduled to see me in clinic on the and then on the , but on the she came to the emergency room and was admitted. She states that the pain was gradual in onset, but worsening. She did not have any nausea, vomiting, or change in her bowel habit. She has a colostomy, which is functioning well. The pain is localized to the left lower quadrant and has no exacerbating or alleviating factors. She has not had any fevers or chills. PAST MEDICAL HISTORY: Severe chronic inflammation of the sigmoid colon of unclear etiology, felt to be likely diverticular. She had a partial sigmoidoscopy, which did not reveal any malignancy. She has chronic left hydronephrosis due to the inflammation in her sigmoid colon with involvement and entrapment of the ureter and has undergone a nephrostomy tube placement for this, and she has also had a descending colostomy placed to divert the fecal stream. She had some small pelvic abscesses on her last admission, which were treated with antibiotics alone as they were too small to drain. Past medical history of significant anxiety. She had a possible TIA or stroke in the past, which has left her with some left-sided weakness in her arm. She also has some reflux and chronic indigestion. PAST SURGICAL HISTORY: Left shoulder surgery, ectopic with tubal ligation, cystoscopy and ureteral stent placement in 2018, and recent laparoscopic descending colostomy and left nephrostomy tube placement. SOCIAL HISTORY: The patient is still smoking, but trying to quit. She does not drink or use illicit drugs. FAMILY HISTORY: Noncontributory. No history of GI malignancies. ALLERGIES AND ADVERSE DRUG REACTIONS: Penicillin, sulfa, metronidazole. She also has significant nausea and vomiting with hydrocodone and codeine. REVIEW OF SYSTEMS: Ten-system review of systems is negative except per HPI and significant chronic stress and some increased recent wheezing attributed to allergies. PHYSICAL EXAMINATION: VITAL SIGNS: She has had some low-grade fevers since her admission up to 101.6, heart rate is normal to slightly elevated, blood pressure is normal, and room air sats are normal. HEENT: Unremarkable. NECK: Supple without lymphadenopathy. HEART: Regular in its rate and rhythm without murmurs, rubs, or gallops. PULMONARY: She has significant wheezing bilaterally, but no crackles. ABDOMEN: Soft and nondistended. She has focal tenderness in the left lower quadrant. Her colostomy is healthy in appearance with stool and gas in the bag. EXTREMITIES: Warm and well perfused without edema. NEUROLOGIC: No focal deficits. PSYCHIATRIC: Alert, oriented, and appropriate. LABORATORY DATA: White count is elevated at 14, hematocrit is 41.5, platelets 380. Electrolytes unremarkable. Potassium was slightly low at 3.4. Alkaline phosphatase is slightly elevated at 112, but other LFTs are normal. CT images are reviewed and I agree with the written report. The patient has a large left lower quadrant abdominal abscess. This is abutting the staple line of her sigmoid colon, which has been defunctionalized. She has two small pelvic abscesses, which are small and to me look to be stable compared to her previous CTs. ASSESSMENT: Left lower quadrant abscess, perhaps related to her diverticulitis or colostomy. This is percutaneously accessible and I have asked Interventional Radiology to drain it. The diagnosis and recommended treatment were discussed with the patient. She understands the reasoning for this. She is on IV antibiotics currently and I will ask Dr. Hanna to make recommendation regarding ongoing antibiotics, and whether she needs IV antibiotics at this point or continue on oral antibiotics. Cultures will be sent from the abscess, which will help to guide antibiotic treatment. Job ID: [id number] [facility]
[2019-09-30] MEDS: D5 1/2 NS w/20 mEq KCL 1,000 ML IV SCH ×2 (09:53→18:05)
[2019-09-30] MEDS: Ketorolac Tromethamine 30 MG/ML VIAL IVP PRN ×2 (09:53→16:11)
--- NOTE | 2019-09-30 13:37 | PDOC.GSPN ---
Surgery Progress Note: Subj - Subjective Narrative: Patient is feeling a little bit better today. She is more bloated and having some abdominal pain on the right now. She has some nausea when she gets up and moves around. She is still passing gas out her ostomy. She has not had any formed stool in her ostomy in the past few days but she has not had any solid food either. She is hungry. Bloody drainage from her percutaneous drainage site. Culture results are still pending but gram-positive rods gram-negative rods and gram-positive cocci were seen on Gram stain. She is still having some low-grade fevers. Vital signs are otherwise okay. Abdomen is more distended and a little tympanitic. Tender to palpation at the drain site. Ostomy looks healthy. Assessment/plan: Status post percutaneous drainage of abscess and doing well overall. Still requiring IV pain medications and having some low-grade fevers so we will keep her for IV antibiotics and pain management. Dr. Hanna is aware of her situation and awaiting final culture results to make outpatient antibiotic recommendations. She apparently could not afford the antibiotics he had recommended at the time of her last discharge and was only taking Keflex which may have contributed to her current infection. I will ask the pillowcase cleaner to see if we can get her any assistance with prescription cost. She has a mild ileus which is likely due to a combination of the infection and her narcotic use. We are going to try to minimize narcotics and increase her ambulation. I am going to add a stool softener and laxative. Surgery Progress Note: Obj - Vital signs Vital signs: Vital Signs - Most Recent Temp Pulse Resp BP Pulse Ox 98.9 F 88 16 116/71 97 09/30/19 11:27 09/30/19 12:46 09/30/19 11:27 09/30/19 12:46 09/30/19 11:27 Surgery Progress Note: Results - Labs Lab results: Laboratory Results - last 24 hr 09/29/19 13:30 Fluid Diff Path Review
[2019-09-30] MEDS ORDERED: Polyethylene Glycol 3350 17 GM Packet PO SCH (14:00)
[2019-09-30] MEDS: Docusate 100 MG CAP PO SCH (20:20)
[2019-10-01] MEDS: Morphine 4 MG/ML VIAL SLOW IVP PRN ×7 (01:07→23:52)
[2019-10-01] MEDS: Ketorolac Tromethamine 30 MG/ML VIAL IVP PRN ×3 (01:07→18:29)
[2019-10-01] MEDS: Acetaminophen 325 MG TAB PO PRN ×6 (01:08→23:52)
[2019-10-01] MEDS: Scopolamine 1.5 mg/72 hour Patch TOP SCH (01:08)
[2019-10-01] MEDS: D5 1/2 NS w/20 mEq KCL 1,000 ML IV SCH ×3 (01:08→20:15)
[2019-10-01] MEDS: MEROPENEM 1 GM/50 ML 1 GM in Premix Bag 1 BAG IVPB SCH ×3 (05:53→21:03)
[2019-10-01 06:15] LABS: #Eosinphils 0.3 thou/uL (0.0-0.7); #Lymphocytes 0.9 thou/uL (1.20-3.40); #Monocytes 0.6 thou/uL (0.11-0.59); %Basophils 0.5 % (0.0-1.0); %Eosinophils 5.5 % (0.0-10.0); %Lymphocytes 15.2 % (21.0-51.0); %Monocytes 9.6 % (0.0-10.0); %Neutrophils 69.2 % (42.0-75.0); Hemoglobin 11.3 g/dL (12.0-16.0); Mean Corpuscular HGB CONC 32.4 g/dL (32.0-36.0); Mean Corpuscular Hemoglobin 33.5 pg (27.0-31.0); Mean Platelet Volume 7.1 fL (7.4-10.4); Platelet Count 238 thou/uL (130-400); Red Blood Cell (RBC) Count 3.39 mill/uL (4.20-5.40); White Blood Cell (WBC) Count 5.8 thou/uL (4.8-10.8)
[2019-10-01 06:34] LABS: Anion Gap 9 mmol/L (10-20); BUN (Urea Nitrogen) 4 mg/dL (9.8-20.1); Calc. Creatinine Clearance 89 mL/min (70-130); Calcium 8.1 mg/dL (7.8-10.44); Carbon Dioxide 27 mmol/L (23-31); Chloride 103 mmol/L (98-107); Estimated GFR-MDRD Greater than 90; Glucose 100 mg/dL (80-115); Potassium 3.9 mmol/L (3.5-5.1); Sodium 135 mmol/L (136-145)
[2019-10-01] MEDS: Docusate 100 MG CAP PO SCH ×2 (08:17→20:15)
[2019-10-01] MEDS: Polyethylene Glycol 3350 17 GM Packet PO SCH (08:17)
--- NOTE | 2019-10-01 08:33 | PRG ---
DATE OF SERVICE: 10/01/2019 SUBJECTIVE: Ms. Jones has no complaints today. Her pain is controlled. She is tolerating diet without difficulty. OBJECTIVE: VITAL SIGNS: She is afebrile. Vital signs are stable. ABDOMEN: Soft and appropriately tender. Her colostomy has stool in it. ASSESSMENT: History of complicated diverticulitis, now with perc drain. PLAN: Continue antibiotics. Continue inpatient care. Final cultures pending. Job ID: [id number]
[2019-10-01] MEDS ORDERED: Clotrimazole 2% 3 Day Vag Cr 22.2 GM TUBE VAG PRN (16:19)
[2019-10-01] MEDS: Ondansetron PF 4 MG/2 ML Vial IVP PRN (17:57)
[2019-10-02] MEDS: MEROPENEM 1 GM/50 ML 1 GM in Premix Bag 1 BAG IVPB SCH ×3 (05:27→21:33)
[2019-10-02] MEDS: D5 1/2 NS w/20 mEq KCL 1,000 ML IV SCH ×3 (05:27→21:34)
[2019-10-02] MEDS: Ketorolac Tromethamine 30 MG/ML VIAL IVP PRN ×3 (05:32→21:33)
[2019-10-02] MEDS: Acetaminophen 325 MG TAB PO PRN ×5 (05:32→21:32)
[2019-10-02] MEDS: Morphine 4 MG/ML VIAL SLOW IVP PRN ×2 (05:33→21:33)
--- NOTE | 2019-10-02 08:52 | PRG ---
DATE OF SERVICE: 10/02/2019 SUBJECTIVE: Ms. Jones has no complaints today. She feels better. She is ambulating. She is complaining about the food choices, but she has no nausea or vomiting. She is afebrile. Vital signs are stable. Her abdomen is soft. Wounds are all well healed. Nephrostomies put out 1275 for the day. The drain put out 45 for the day. Final results of culture show Enterococcus. ASSESSMENT: Abscess, intraabdominal from complicated diverticulitis with Enterococcus faecalis and AVM growing. PLAN: We will have to get with Dr. Hanna to see what definitive antibiotics as an outpatient would be chosen. Job ID: [id number]
[2019-10-02] MEDS: Docusate 100 MG CAP PO SCH ×2 (09:24→21:32)
[2019-10-02] MEDS: Polyethylene Glycol 3350 17 GM Packet PO SCH (09:24)
[2019-10-02] MEDS: Morphine 2 MG/ML SYRINGE SLOW IVP PRN ×3 (09:30→18:16)
[2019-10-03] MEDS: Acetaminophen 325 MG TAB PO PRN ×5 (02:00→22:50)
[2019-10-03] MEDS: Morphine 4 MG/ML VIAL SLOW IVP PRN ×3 (02:00→22:50)
[2019-10-03] MEDS: D5 1/2 NS w/20 mEq KCL 1,000 ML IV SCH ×3 (06:09→21:19)
[2019-10-03] MEDS: Ketorolac Tromethamine 30 MG/ML VIAL IVP PRN ×3 (06:30→18:25)
[2019-10-03] MEDS: MEROPENEM 1 GM/50 ML 1 GM in Premix Bag 1 BAG IVPB SCH ×2 (06:31→13:18)
[2019-10-03] MEDS: Polyethylene Glycol 3350 17 GM Packet PO SCH ×2 (08:44→08:48)
[2019-10-03] MEDS: Docusate 100 MG CAP PO SCH ×2 (08:44→21:19)
--- NOTE | 2019-10-03 09:21 | PRG ---
DATE OF SERVICE: 10/03/2019 SUBJECTIVE: Doing well. Tolerating diet. pain controlled. OBJECTIVE: VITAL SIGNS: Afebrile. Vital signs are stable. ABDOMEN: Soft. Her wounds are well healed. Drain purulent ASSESSMENT: Complicated diverticulitis, s/p perc drain abscess. PLAN: Continue IV abx. Will ask Jacques to see for outpatient abx recommendations. Job ID: [id number] [facility]
[2019-10-03] MEDS: Morphine 2 MG/ML SYRINGE SLOW IVP PRN ×2 (10:56→18:26)
[2019-10-03] MEDS: Ampicillin/Sulbactam 3 GM in Sodium Chloride 0.9% 100 ML IVPB SCH (17:46)
--- NOTE | 2019-10-03 19:13 | CON ---
DATE OF CONSULTATION: 10/03/2019 HISTORY OF PRESENT ILLNESS: Ms. Jones's back with stable abscess. She had a percutaneous drainage and we have some culture results. She is feeling better. Basically, she had been on oral Keflex because she could not feel the other prescriptions that were given. I think this might have had a role in the recurrence of the process, particularly vis-a-vis the organisms retrieved. As we had previously reviewed that she had a Staphylococcal bacteremia associated with this process in the past, but now it is a whole different microbiology. She is feeling better now. No headaches. No respiratory symptoms except for mild dyspnea. PAST MEDICAL HISTORY: As noted before. 1. COPD. 2. Chronic smoking. 3. MSSA bacteremia. 4. Diverticulitis. 5. Left ureter obstruction with left-sided hydronephrosis. 6. Status post percutaneous drainage, left side. 7. Colostomy with Priscilla's pouch. 8. History of ulcerative colitis, but this is not very clear. The pathology that we have is just for the gallbladder that was resected. We do not have pathology from the on the colon itself. ALLERGIES: PENICILLIN. THIS IS NOT A TRUE ALLERGY SHE DOES NOT EVEN REMEMBER WHEN SHE WAS TOLD AND BY WHOM THAT SHE HAD AN ALLERGIC REACTION, PROBABLY IS ONE OF THOSE CHILDHOOD REACTIONS THAT ARE NOT MEANINGFUL FOR CURRENT PRESCRIBING. SHE DOES HAVE TRUE ALLERGY TO FLAGYL, WHICH SHE CANNOT TAKE WELL SULFA DRUGS. FAMILY HISTORY: Noncontributory. SOCIAL HISTORY: She is a current smoker. Lives in [place] by herself. MEDICATION LIST: At the moment, include: 1. Tylenol. 2. DuoNeb. 3. Colace. 4. Toradol. 5. Meropenem. 6. Morphine. 7. MiraLAX. 8. Tramadol. PHYSICAL EXAMINATION: VITAL SIGNS: Temperature was high at 101.6 and now she defervesced after drainage and antimicrobials. Right now, her blood pressure is 150/90 and pulse 67. GENERAL: Appears in no distress, her usual self, very pleasant. SKIN: She has peripheral IV access and has a percutaneous nephrostomy, left side. She voids in the toilet and has now one drain in the midline right above the suprapubic region and the colostomy looks good. No lymphadenopathy. HEENT: Ocular movements conjugate. Oral cavity with quite a few teeth in place with moderate marked decay. NECK: Supple. No jugular vein distention. LUNGS: Symmetric air entry. Diminished breath sounds, but no crackles or wheezing. HEART: S1 and S2. Regular rate. No S3 or S4. ABDOMEN: Soft. Mild tenderness in the center of the lower half of the abdomen. No distention. No ascites. EXTREMITIES: No edema. Pulses 1+ in dorsalis pedis. Moves extremities equally. NEUROLOGIC: Cognitive function appears to be intact. LABORATORY DATA: White cell count 5.8, hemoglobin 11, and platelets 238. Sodium 135 and creatinine 0.52. The aspirate showed 51,000 WBCs, predominance of mature neutrophils. Actually, they did not do a differential. Microbiology with E faecalis, Enterococcus avium, and yeast species. The organisms are quite susceptible to ampicillin. ASSESSMENT: Chronic diverticulitis. This is the presumed underlying diagnosis, which has led to chronic inflammatory mass, obstruction of the left ureter, and this has required percutaneous nephrostomy, left side, and diversion with colostomy. Now, she has an abscess, which appears to be at the suture line of the Priscilla's pouch and this has been drained and the abscess measured 5.8 x 4.8 x 6.4 cm. There are two other smaller collections in the pelvis as well, so at this point, I would recommend IV Unasyn and oral Diflucan for treatment, PICC line placement and treat for a few weeks with monitoring of the progress of the abscess, eventual removal of the drains, and maybe transition to oral Augmentin for consolidation of therapy. In view of the diversion and with proper drainage, this should resolve. Job ID: [id number]
[2019-10-04] MEDS: Ketorolac Tromethamine 30 MG/ML VIAL IVP PRN (00:29)
[2019-10-04] MEDS: Scopolamine 1.5 mg/72 hour Patch TOP SCH (00:29)
[2019-10-04] MEDS: Ampicillin/Sulbactam 3 GM in Sodium Chloride 0.9% 100 ML IVPB SCH ×5 (00:29→23:41)
[2019-10-04] MEDS: Morphine 4 MG/ML VIAL SLOW IVP PRN ×2 (03:12→21:19)
[2019-10-04] MEDS: Acetaminophen 325 MG TAB PO PRN ×3 (03:12→15:36)
[2019-10-04] MEDS: D5 1/2 NS w/20 mEq KCL 1,000 ML IV SCH ×2 (06:29→12:06)
[2019-10-04] MEDS: Fluconazole 100 MG TAB PO SCH (07:53)
[2019-10-04] MEDS: Polyethylene Glycol 3350 17 GM Packet PO SCH (07:53)
[2019-10-04] MEDS: Docusate 100 MG CAP PO SCH ×2 (07:53→21:05)
[2019-10-04] MEDS: Morphine 2 MG/ML SYRINGE SLOW IVP PRN ×3 (09:15→18:17)
--- NOTE | 2019-10-04 15:45 | SPC ---
Left upper extremity PICC placement sonographic guided HISTORY: Abscess. FINDINGS: After explaining the procedure and answering all questions, the left upper extremity was pr epped and draped in usual sterile fashion. Sterile technique, buffered local anesthesia, sonographic guidance, and a 22-gauge needle were used to carefully access the left basilic vein. Michael dard technique was used to place the tip of a 5 Turkmen single lumen PICC so that the tip lies at the level of the superior vena cava. Catheter was flushed and secured externally. Patient tolerated w ell and was returned in unchanged condition. Fluoroscopy time 0 seconds. IMPRESSION : Left upper extremity PICC is ready for use.
[2019-10-04] MEDS ORDERED: oxyCODONE/Acetaminophen 5 mg/325 mg Tablet PO SCH (16:45)
--- NOTE | 2019-10-04 16:49 | PDOC.GSPN ---
Surgery Progress Note: Subj - Subjective Narrative: Patient awaiting PICC line for IV antibiotics as an outpatient. Case management is trying to arrange outpatient IV administration at [facility]. She is still having abdominal soreness and most of the oral pain medication she has tried causes nausea which cannot be managed with medications. She is tolerating morphine but the pain relief does not last very long. We will try Percocet with Zofran and see how that does. I will also add ibuprofen to her pain management regimen. Her abdomen is softer and less distended than on Thursday and her percutaneous drain output has diminished and cleared in color. Clinically she is close to being ready for discharge. Surgery Progress Note: Obj - Vital signs Vital signs: Vital Signs - Most Recent Temp Pulse Resp BP Pulse Ox 98.4 F 64 16 153/89 H 99 10/04/19 12:00 10/04/19 12:00 10/04/19 12:00 10/04/19 12:00 10/04/19 12:00 Surgery Progress Note: Results - Labs Result Diagrams: 10/01/19 05:55 10/01/19 05:55
[2019-10-04] MEDS ORDERED: Ibuprofen 600 MG TAB PO PRN (16:50)
[2019-10-04] MEDS ORDERED: Ibuprofen 200 MG TAB PO PRN (16:50)
[2019-10-04] MEDS: Ondansetron PF 4 MG/2 ML Vial IVP PRN (16:51)
--- NOTE | 2019-10-04 17:11 | PRG ---
DATE OF SERVICE: 10/04/2019 SUBJECTIVE: The patient is still having pain which is moderate in the lower abdominal area. Cannot take tramadol because of nausea, hydrocodone and likewise. No respiratory symptoms. No genitourinary symptoms. OBJECTIVE: VITAL SIGNS: Temperature has been normal, and blood pressure pulse 64, respirations 16, O2 saturation 99. GENERAL: Does not appear in distress. LUNGS: With diminished breath sounds. ABDOMEN: With the midline percutaneous drain right above the suprapubic area. Nephrostomy tube in place and now she has a PICC line in left upper extremity. LABORATORY DATA: White cell count 5.8, hemoglobin 11, platelets 238. Creatinine 0.52, and microbiology with E faecalis, Enterococcus avium, and yeast. ASSESSMENT AND DISCUSSION: Diverticulitis; obstruction of left kidney outflow tract, status post percutaneous nephrostomy and diverting colostomy with what appears to be a suture line abscess. This has been drained, and there are 2 smaller ones around that area. The patient has been transitioned to Unasyn plus oral Diflucan, and the intention is to treat her for another 14 days, after that transition to oral Augmentin and continue Diflucan for a longer period of time. Follow up weekly labs. Repeat CT scan in 2 weeks and then removal of the drain hopefully. Job ID: [id number] MTDD
[2019-10-05] MEDS: Morphine 2 MG/ML SYRINGE SLOW IVP PRN ×4 (01:43→14:36)
[2019-10-05] MEDS: Ampicillin/Sulbactam 3 GM in Sodium Chloride 0.9% 100 ML IVPB SCH ×2 (05:15→11:13)
[2019-10-05] MEDS: Acetaminophen 325 MG TAB PO PRN ×2 (05:51→10:05)
[2019-10-05] MEDS: Ibuprofen 200 MG TAB PO PRN ×2 (05:51→14:36)
[2019-10-05 07:49] VITALS: TEMP 98.6
[2019-10-05] MEDS: Fluconazole 100 MG TAB PO SCH (08:50)
[2019-10-05] MEDS: Polyethylene Glycol 3350 17 GM Packet PO SCH (08:55)
[2019-10-05] MEDS: Docusate 100 MG CAP PO SCH (08:55)
[2019-10-05 11:42] VITALS: BP 151/97
[2019-10-05] MEDS ORDERED: oxyCODONE/Acetaminophen 5 mg/325 mg Tablet PO PRN ×2 (11:48)
--- NOTE | 2019-10-05 12:12 | PDOC.GSPN ---
Surgery Progress Note: Subj - Subjective Narrative: Patient is feeling somewhat better today. The tenderness and bloating have diminished. She is no longer having any vertigo. She tolerated Percocet without severe nausea. Her abdomen is softer and the tenderness to palpation in the lower quadrant has basically resolved. She has stool and gas in her ostomy bag. Case management is trying to arrange outpatient antibiotics. Prescriptions for her other oral medications have been written and are in the chart in case we are able to arrange for discharge home today. Surgery Progress Note: Obj - Vital signs Vital signs: Vital Signs - Most Recent Temp Pulse Resp BP Pulse Ox 98.6 F 71 16 151/97 H 98 10/05/19 11:39 10/05/19 11:39 10/05/19 11:39 10/05/19 11:39 10/05/19 11:39 Surgery Progress Note: Results - Labs Result Diagrams: 10/01/19 05:55 10/01/19 05:55
--- NOTE | 2019-10-07 09:30 | PQF ---
BRYANT Waller MD [id number] CLINICAL DOCUMENTATION CLARIFICATION FORM: POST DISCHARGE Addendum to original discharge summary date: ____ Late entry note date: __ DATE: 10/07/2019 ATTN:Bryant Smallwood Please exercise your independent, professional judgment in responding to the clarification form. Clinical indicators are provided on the bottom of this form for your review. Based on your clinical judgment, can you please specify etiology of patient's peritoneal abscess? Please check appropriate box(s): [ ] Diverticulitis of colon [ ] Complication of colostomy [ ] Other diagnosis [ x ] Unable to determine For continuity of documentation, please document condition throughout progress notes and discharge summary. Thank You. CLINICAL INDICATORS - SIGNS / SYMPTOMS / LABS HP 09/29 "She developed left lower quadrant pain" HP 09/29 "left lower quadrant abscess perhaps related to her lap colostomy" PN 09/29 "she has some nausea" PN 09/29 "low grade fever" PN 10/01 "abscess intraabdominal from complicated diverticulitis" PN 10/01 "fluid culture:enterococcus faecalis" Consult 10/02 "she has an abscess which appears to be at the suture line of the Priscilla's pouch" RISK FACTORS 63 years old female-HP 09/29 Diverticulitis of colon-HP 09/29 Hydronephrosis-HP 09/29 s/p colostomy-HP 09/29 s/p nephrostomy-HP 09/29 GERD-HP 09/29 Smoker-HP 09/29 Ileus-PN 09/29 AVM-PN 10/01 TREATMENTS: PICC line insertion-Intervention procedure 10/03 Abscess drainage-CT 09/28 Peritoneal fluid culture-Collected 09/28 Merrem 1gm IV-JUL 06 Zosyn 3375gm IV-MAR 05/27 IVF-MAR 09/28 (This form is maintained as a part of the permanent medical record) 2014 [employer]. All Rights Reserved [email or web address] [phone] MTDD
--- NOTE | 2019-10-07 09:34 | PQF ---
BRYANT Waller MD [id number] CLINICAL DOCUMENTATION CLARIFICATION FORM: POST DISCHARGE Addendum to original discharge summary date: ____ Late entry note date: __ Date: 10/07/2019 ATTN: Bryant Smallwood Please exercise your independent, professional judgment in responding to the clarification form. Clinical indicators are provided on the bottom of this form for your review Please check appropriate box(s): [x ] Protein Calorie Malnutrition: [ ] Mild [ x] Moderate [ ] Severe [ ] Other Malnutrition (please specify) __ [ ] Underweight without malnutrition [ ] Cachexia [ ] Other diagnosis [ ] Unable to determine CLINICAL INDICATORS - SIGNS / SYMPTOMS / LABS RD Consult 10/04 "BMI=17" RD Consult 10/04 "8.3% weight loss" RD Consult 10/04 "muscle wasting to hands and clavicles" RD Consult 10/04 "suggestive of malnutrition in the context of acute illness" RISK FACTORS 63 years old female-HP 09/29 Diverticulitis of colon-HP 09/29 Hydronephrosis-HP 09/29 s/p colostomy-HP 09/29 s/p nephrostomy- 09/29 GERD-HP 09/29 Smoker-HP 09/29 Ileus-PN 09/29 AVM-PN 10/01 Peritoneal abscess- 09/29 TREATMENT: Abscess drainage-CT 09/28 IVF-JUL 06 RD consult-RD Consult 10/04 Recommend fiber restricted diet-RD Consult 10/04 Ensure Enlive-RD Consult 10/04 Monitor weight loss-RD Consult 10/04 Monitor total intake-RD Consult 10/04 Moderate Malnutrition (in acute illness) Energy Intake: <75% of estimated energy requirement for > 7 days Weight Loss: 1-2%/1 week; 5%/ 1 month; 7.5%/3 months Other: mild body fat loss; mild muscle mass loss; mild fluid accumulation; Severe Malnutrition (in acute illness) Energy Intake: < 50% of estimated energy requirement for > 5 days Weight Loss: >1-2%/1 week; >5%/1 month; >7.5%/3 months Other: moderate body fat loss; moderate muscle mass loss; moderate- severe fluid accumulation; measurably reduced knitting inspector strength Moderate Malnutrition (in chronic illness) Energy Intake: <75% of estimated energy requirement for >1 month Weight Loss: 5%/1 month; 7.5%/3 months; 10%/6 months; 20%/1 year Other: mild body fat loss; mild muscle mass loss; mild fluid accumulation Severe Malnutrition (in chronic illness) Energy Intake: <75% of estimated energy requirement for >1 month Weight Loss: >5%/1 month; >7.5%/3 months; >10%/6 months; >20%/1 year Other: severe body fat loss; severe muscle mass loss; severe fluid accumulation ; measurably reduced knitting inspector strength (This form is maintained as a part of the permanent medical record) 2014 [employer] All Rights Reserved [email or web address]
== END 2019-10-05 15:35 | disposition home or self-care (01) | DRG 372 ==
LOC: SURG A 20:26
PROVIDERS: ADMIT Specialist; ATTEND Specialist
PROC: 0W9G30Z Drainage of Peritoneal Cavity with Drainage Device, Percutaneous Approach (ICD-10-PCS; 2019-09-29)
PROC: 02HV33Z Insertion of Infusion Device into Superior Vena Cava, Percutaneous Approach (ICD-10-PCS; principal; 2019-10-04)
PROC: B548ZZA Ultrasonography of Superior Vena Cava, Guidance (ICD-10-PCS; 2019-10-04)
DX: K65.1 Peritoneal abscess (principal); N13.30 Unspecified hydronephrosis; K56.7 Ileus, unspecified; K57.32 Diverticulitis of large intestine without perforation or abscess without bleeding; I69.354 Hemiplegia and hemiparesis following cerebral infarction affecting left non-dominant side; E44.0 Moderate protein-calorie malnutrition; Z68.1 Body mass index [BMI] 19.9 or less, adult; F41.9 Anxiety disorder, unspecified; K21.9 Gastro-esophageal reflux disease without esophagitis; F17.200 Nicotine dependence, unspecified, uncomplicated; J44.9 Chronic obstructive pulmonary disease, unspecified; B95.2 Enterococcus as the cause of diseases classified elsewhere; K55.20 Angiodysplasia of colon without hemorrhage; Z93.3 Colostomy status; Z93.6 Other artificial openings of urinary tract status; Z98.51 Tubal ligation status; Z88.5 Allergy status to narcotic agent; Z88.0 Allergy status to penicillin; Z88.2 Allergy status to sulfonamides; Z88.8 Allergy status to other drugs, medicaments and biological substances
CPT/HCPCS: 36415; 36569; 49020; 77002; 80048; 85025; 85060; 87070; 87186; 87205; 89051; 94640; C1729; C1751; J0295; J1644; J1885; J2185; J2250; J2270; J2405; J3010; J3480; J3490; J7620

== ENCOUNTER 2019-10-07 21:46 | Inpatient (IN) | payer SELFPAY ==
[2019-10-07 22:47] LABS: Bilirubin Negative (Negative); Blood, Urine Negative (Negative); Clarity Clear (Clear); Glucose, Urine (Dipstick) Normal (Negative); Leukocyte Negative Leu/uL (Negative); Nitrite Negative (Negative); Protein, Urine (Dipstick) 20 mg/dL (Neg-Trace); Urobilinogen Normal mg/dL (Less than 2)
[2019-10-07 22:47] LABS: #Basophils 0.1 thou/uL (0.0-0.2); #Eosinphils 0.1 thou/uL (0.0-0.7); #Lymphocytes 2.4 thou/uL (1.20-3.40); #Monocytes 0.7 thou/uL (0.11-0.59); #Neutrophils 2.9 thou/uL (1.40-6.50); %Basophils 1.2 % (0.0-1.0); %Lymphocytes 38.7 % (21.0-51.0); %Monocytes 11.6 % (0.0-10.0); %Neutrophils 46.4 % (42.0-75.0); Hemoglobin 12.6 g/dL (12.0-16.0); Mean Corpuscular HGB CONC 33.9 g/dL (32.0-36.0); Mean Corpuscular Hemoglobin 33.4 pg (27.0-31.0); Mean Corpuscular Volume 98.6 fL (78.0-98.0); Mean Platelet Volume 5.8 fL (7.4-10.4); Platelet Count 512 thou/uL (130-400); RBC Distribution Width 13.3 % (11.5-14.5); Red Blood Cell (RBC) Count 3.76 mill/uL (4.20-5.40); White Blood Cell (WBC) Count 6.1 thou/uL (4.8-10.8)
[2019-10-07 23:09] LABS: ALT (SGPT) 8 U/L (8-55); AST (SGOT) 16 U/L (5-34); Albumin 3.3 g/dL (3.4-4.8); Alkaline Phosphatase 102 U/L (40-110); Anion Gap 13 mmol/L (10-20); BUN (Urea Nitrogen) 8 mg/dL (9.8-20.1); Bilirubin, Total 0.2 mg/dL (0.2-1.2); Calc. Creatinine Clearance 0 mL/min (70-130); Calcium 8.9 mg/dL (7.8-10.44); Carbon Dioxide 28 mmol/L (23-31); Chloride 103 mmol/L (98-107); Estimated GFR-MDRD Greater than 90; Globulin 3.8 g/dL (2.4-3.5); Glucose 94 mg/dL (80-115); Lipase 46 U/L (8-78); Potassium 3.8 mmol/L (3.5-5.1); Protein, Total 7.1 g/dL (6.0-8.3); Sodium 140 mmol/L (136-145)
[2019-10-07] MEDS ORDERED: Morphine 4 MG/ML VIAL ONE (23:28)
[2019-10-07] MEDS ORDERED: Ampicillin/Sulbactam 3 GM in Sodium Chloride 0.9% 100 ML IVPB SCH (23:45)
[2019-10-08] MEDS ORDERED: Ondansetron ODT 4 MG TAB SL PRN (03:44)
[2019-10-08] MEDS ORDERED: Morphine 4 MG/ML VIAL SLOW IVP PRN ×2 (03:44→12:37)
[2019-10-08] MEDS ORDERED: Ondansetron PF 4 MG/2 ML Vial IVP PRN (03:44)
[2019-10-08 03:52] VITALS: BMI 18.4
[2019-10-08] MEDS: Sodium Chloride 0.9% 1,000 ML IV SCH ×2 (04:19→12:29)
--- NOTE | 2019-10-08 04:34 | PDOC.HHP ---
Hospitalist HPI - History of Present Illness Abdominal pain, home care issues History of Present Illness: Patient is a 63 year old female with PMH COPD, tobacco abuse, MSSA bacteremia, diverticulitis, L hydronephrosis and L ureteral obstruction, L sided percutaneous drainage, colosctomy w/ Noel pouch, possible ulcerative colitis who presents to ED for abdominal pain and issues with home antibiotics. She was recently discharged on 10/05/19 from this facility after having L abdominal abscess drained. she was experiencing worsening pain and went to ED then and CT guided drainage was successful. She also has a chronic noel pouch/ostomy which is functioning and also a nephrostomy on L side due to chronic hydronephrosis. She was discharged with a PICC line to get IV antibiotics. Dr Hanna saw at that time and recommended IV unasyn q6h until 10/18 then switch to PO augmentin, also continue PO diflucan this whole time as well, he also recommended repeat CT scan in 2 weeks. She had insurance issues at home and did not get her antibiotics. PICC in place still. PCN allergy not an issue. In ED, labs CBC BMP and UA mostly normal (plt 500s), vitals wnl w/ mild tachycardia and low grade fevers. Dr Wray called by ED, recommended medicine admission for case management. Patient given unasyn, to be admitted for further eval and care. Hospitalist ROS - Review of Systems Constitutional: denies: fever, chills, sweats, weakness, malaise, other Eyes: denies: pain, vision change, conjunctivae inflammation, eyelid inflammation, redness, other ENT: denies: ear pain, ear discharge, nose pain, nose discharge, nose congestion , mouth pain, mouth swelling, throat pain, throat swelling, other Respiratory: denies: cough, dry, shortness of breath, hemoptysis, SOB with excertion, pleuritic pain, sputum, wheezing, other Cardiovascular: denies: chest pain, palpitations, orthopnea, paroxysmal noc. dyspnea, edema, light headedness, other Gastrointestinal: denies: nausea, vomiting, abdominal pain, diarrhea, constipation, melena, hematochezia, other Genitourinary: denies: dysuria, frequency, incontinence, hematuria, retention, other Musculoskeletal: denies: neck pain, shoulder pain, arm pain, back pain, hand pain, leg pain, foot pain, other Skin: denies: rash, lesions, james, bruising, other Neurological: denies: weakness, numbness, incoordination, change in speech, confusion, seizures, other All other systems reviewed; all pertinent +/- noted in HPI/Subj - Medication Medications: Active Medications Generic Name Dose Route Start Last Admin Trade Name Freq PRN Reason Stop Dose Admin Sodium Chloride 1,000 mls @ 125 mls/hr 10/08/19 03:45 10/08/19 04:19 Normal Saline 0.9% IV 10/08/19 12:50 1,000 mls .Q8H NANCY Administration Morphine Sulfate 4 mg 10/08/19 03:44 10/08/19 04:18 Morphine SLOW IVP 10/08/19 12:50 4 mg Q2H PRN Administration Pain Ondansetron HCl 4 mg 10/08/19 03:44 10/08/19 04:17 Zofran IVP 10/08/19 12:50 4 mg Q6H PRN Administration Nausea/Vomiting Hospitalist History - Past Medical History Heme/Onc: reports: no pertinent history Hepatobiliary: reports: no pertinent history Psych: reports: Anxiety Musculoskeletal: reports: no pertinent history Rheumatologic: reports: no pertinent history Renal/: reports: no pertinent history Endocrine: reports: no pertinent history Dermatology: reports: no pertinent history Other Medical History: COPD, tobacco abuse, MSSA bacteremia, diverticulitis, L hydronephrosis and L ureteral obstruction, L sided percutaneous drainage, colosctomy w/ Noel pouch, possible ulcerative colitis - Past Surgical History Other Surgical History: L shoulder surgery, ectopic , tubal ligation, cystoscopy, ureteral stent placement 2018, laparoscopic descending colostomy, L nephrostomy tube. - Family History Family History: reports: no pertinent history - Social History Smoking Status: Current every day smoker Alcohol: reports: None Drugs: reports: none - Exam General Appearance: NAD, awake alert Eye: PERRL, anicteric sclera ENT: normocephalic atraumatic, no oropharyngeal lesions, moist mucosa Neck: supple, symmetric, no JVD, no thyromegaly, no lymphadenopathy, no carotid bruit Heart: RRR, no murmur, no gallops, no rubs, normal peripheral pulses Respiratory: CTAB, no wheezes, no rales, no ronchi, normal chest expansion, no tachypnea, normal percussion Gastrointestinal: soft, non-tender, non-distended, normal bowel sounds, no palpable masses, no hepatomegaly, no splenomegaly, no bruit Gastrointestinal - other findings: Noel w/ stool in bag, L nephrostomy, drainage bag R abdomen Extremities: no cyanosis, no clubbing, no edema Skin: normal turgor, no lesions, no rashes Neurological: cranial nerve grossly intact, normal sensation to touch, no weakness, no focal deficits, no new deficit Musculoskeletal: normal tone, normal strength, no muscle wasting Psychiatric: normal affect, normal behavior, A&O x 3 Hospitalist Results - Labs Result Diagrams: 10/07/19 22:40 10/07/19 22:39 Lab results: WBC 6.1 thou/uL (4.8-10.8) 10/07/19 22:40 Hgb 12.6 g/dL (12.0-16.0) 10/07/19 22:40 Hct 37.1 % (36.0-47.0) 10/07/19 22:40 MCV 98.6 fL (78.0-98.0) H 10/07/19 22:40 Plt Count 512 thou/uL (130-400) H 10/07/19 22:40 Neutrophils % 46.4 % (42.0-75.0) 10/07/19 22:40 Sodium 140 mmol/L (136-145) 10/07/19 22:39 Potassium 3.8 mmol/L (3.5-5.1) 10/07/19 22:39 Chloride 103 mmol/L (98-107) 10/07/19 22:39 Carbon Dioxide 28 mmol/L (23-31) 10/07/19 22:39 BUN 8 mg/dL (9.8-20.1) L 10/07/19 22:39 Creatinine 0.62 mg/dL (0.6-1.1) 10/07/19 22:39 Glucose 94 mg/dL (80-115) 10/07/19 22:39 Calcium 8.9 mg/dL (7.8-10.44) 10/07/19 22:39 Total Bilirubin 0.2 mg/dL (0.2-1.2) 10/07/19 22:39 AST 16 U/L (5-34) 10/07/19 22:39 ALT 8 U/L (8-55) 10/07/19 22:39 Alkaline Phosphatase 102 U/L (40-110) 10/07/19 22:39 Serum Total Protein 7.1 g/dL (6.0-8.3) 10/07/19 22:39 Albumin 3.3 g/dL (3.4-4.8) L 10/07/19 22:39 Lipase 46 U/L (8-78) 10/07/19 22:39 Urine Ketones Negative mg/dL (Negative) 10/07/19 22:27 Urine Blood Negative (Negative) 10/07/19 22:27 Urine Nitrite Negative (Negative) 10/07/19 22:27 Ur Leukocyte Esterase Negative Gale/uL (Negative) 10/07/19 22:27 Hospitalist H&P A/P - Plan Plan: Patient is a 63 year old female with PMH COPD, tobacco abuse, MSSA bacteremia, diverticulitis, L hydronephrosis and L ureteral obstruction, L sided percutaneous drainage, colosctomy w/ Noel pouch, possible ulcerative colitis who presents to ED for abdominal pain and issues with home antibiotics. # recently L sided abscess perc drainage w/ issues with home abx - patient was recently discharged on 10/05/19 from this facility after having L abdominal abscess CT guided drainage - she was discharged with a PICC line to get IV antibiotics - Dr Hanna saw last admit and recommended IV unasyn q6h until 10/18 then switch to PO augmentin, also continue PO diflucan this whole time as well, will order there - consult Dr Smallwood of surgery - repeat CT scan in 2 weeks from 10/04 per ID recs - case management consult to investigate what happened with home health and abx , consider SNF placement? # COPD - no wheezing, PRN nebs # history of diverticulitis, noel pouch - noted, treat as above # L hydronephrosis s/p perc neph tube - monitor closely
[2019-10-08] MEDS ORDERED: Ibuprofen 200 MG TAB PO PRN ×2 (04:58)
[2019-10-08] MEDS ORDERED: oxyCODONE/Acetaminophen 5 mg/325 mg Tablet PO PRN (04:58)
[2019-10-08] MEDS ORDERED: Promethazine HCl 12.5 MG in Sodium Chloride 0.9% 50 ML IVPB PRN (04:59)
[2019-10-08] MEDS ORDERED: Guaifenesin DM 100-10/5 ML UDCUP PO PRN (04:59)
[2019-10-08] MEDS ORDERED: Labetalol HCl 100 MG/20 ML VIAL SLOW IVP PRN (04:59)
[2019-10-08] MEDS ORDERED: cloNIDine 0.1 MG TAB PO PRN (04:59)
[2019-10-08] MEDS ORDERED: Ampicillin/Sulbactam 3 GM VIAL IVPB SCH (08:00)
[2019-10-08] MEDS: Fluconazole 100 MG TAB PO SCH (09:15)
[2019-10-08] MEDS: Enoxaparin Sodium 30 MG/0.3 ML SYRINGE SC SCH (09:15)
[2019-10-08] MEDS: Famotidine 20 MG TAB PO SCH ×2 (09:15→22:02)
[2019-10-08] MEDS: Ampicillin/Sulbactam 3 GM in Sodium Chloride 0.9% 100 ML IVPB SCH ×3 (09:16→22:01)
[2019-10-08] MEDS: Ibuprofen 600 MG TAB PO PRN ×2 (09:17→18:10)
[2019-10-08] MEDS: oxyCODONE/Acetaminophen 5 mg/325 mg Tablet PO PRN ×2 (09:17→18:09)
[2019-10-08] MEDS ORDERED: Iopamidol-370 76% 500 ML 1 ML ONE (10:53)
[2019-10-08] MEDS ORDERED: Iopamidol 370 76% 50 ML VIAL FS ONE (10:53)
[2019-10-08] MEDS ORDERED: Promethazine 25 MG TAB PO PRN (12:37)
--- NOTE | 2019-10-08 13:38 | PRG ---
DATE OF SERVICE: 10/08/2019 SUBJECTIVE: Ms. Jones is a 63-year-old female, who has a complicated diverticulitis, history of cholecystitis, and left ureteral obstruction. Dr. Smallwood a month ago performed laparoscopic cholecystectomy, laparoscopic diverting colostomy with plans to return in the future for elective sigmoid colectomy and colostomy reversal. Postoperatively, the patient developed an abscess at the staple line of the sigmoid. She underwent percutaneous drainage over a week ago. She was seen by Dr. Hanna. Arrangements in [place] for outpatient intravenous antibiotics were made and care for colostomy and nephrostomy arranged. She was arranged to have Unasyn IV through the emergency room in [place]. When the patient reported for these intravenous antibiotics, she was turned away because of lack of finances and has not had these intravenous antibiotics since being discharged. The patient thus was readmitted to the hospital. She was admitted to the Hospitalist Service and placed back on her Unasyn. She has remained afebrile, white count 6, and hemoglobin 12. The patient reports the drainage from her percutaneous pelvic drainage is 0. She has been irrigating once a day with saline. Her percutaneous nephrostomy tube in left is working well. Her PICC line has been used this hospitalization. I have been asked to see her. The patient reports nausea, and we have ordered Phenergan p.o. suppository or IM p.r.n. We have ordered scopolamine patch. The patient reports pain persisted in lower abdomen, I am unable to discern whether this has improved or better because the patient's communication skills. The patient states that Ultram, hydrocodone, Tylenol No. 3, Percocet all caused GI upset and she cannot take them. She states they cause constipation and GI upset. She wants morphine. OBJECTIVE: VITAL SIGNS: 5 foot and 6 inches, 114 pounds, and 18 BMI. Temperature 98.5 degrees, pulse 79, and blood pressure 154/94, and afebrile this hospitalization. GENERAL: The patient is in no distress. When conversing with her, she appears anxious and interrupts often. LUNGS: Clear to auscultation. CARDIAC: Regular rate and rhythm. No murmur or gallop. ABDOMEN: Soft and nontender. Colostomy, healthy, functioning, abundant stool in the bag, flatus in the bag, percutaneous drain. No significant drainage from pelvic abscess. Nephrostomy tube, left flank. PICC line, left arm. Laparoscopic wounds, well healed. LABORATORY DATA: White count is normal and hemoglobin 12. Comprehensive metabolic profile is normal. Liver function tests normal. Renal function is normal. ASSESSMENT AND PLAN: Pelvic abscess, status post percutaneous drainage. At this point, we would reassess this with a CT scan of the abdomen and pelvis with p.o. and IV contrast. It is likely that since her drain is not putting out anything, if her collection is resolved, this drain probably could be removed. We will await the CAT scan. The patient has been recommended by Dr. Hanna to receive Unasyn, but has not received this because of financial constraints. She was turned away at the [place] [facility] case management had arranged for her to receive antibiotics. receiving those recommended antibiotics from Infectious Disease while in the hospital. After the CT scan of the abdomen and pelvis, we would reassess her antibiotic need, perhaps she could be on oral antibiotics. Much of her pain is probably low pain tolerance; however, we will await the CAT scan results. Dr. Hanna has been reconsulted to evaluate this, perhaps she could be on oral antibiotics. At this point, we will await his recommendation. Job ID: [id number]
[2019-10-08] MEDS: Promethazine HCl 25 MG/ML VIAL IM SCH ×2 (13:50→17:47)
[2019-10-08] MEDS: Scopolamine 1.5 mg/72 hour Patch TD SCH (13:51)
--- NOTE | 2019-10-08 15:15 | CT ---
CT ABDOMEN AND PELVIS PERFORMED WITH CONTRAST ENHANCEMENT: 10/08/19 HISTORY: Patient is status post a left lower quadrant colostomy with Jean's pouch. This is a follow-up of a bscess collection. COMPARISON: The 09/28/19 examination. The lung bases are clear of infiltrates. Small hyperenhancing area along the surface of the left lobe of the liver stable probably a small fla sh filling hemangioma or small vascular lesion. The spleen and pancreas regions are unremarkable. Gal lbladder has been removed. The right and left adrenal glands are normal. Right and left kidneys are normal in size. A left sided nephrostomy tube remains in place. No significant periaortic or mesenteric adenopathy. CT OF THE PELVIS PERFORMED WITH CONTRAST: The appendix is normal. Surgical drain is in place in the region of the large abscess collection. The re is very minimal fluid around the pigtail catheter at this time. The deeper pelvic fluid collection s noted on the prior examination show one collection more in the left side of the pelvis anterior to the rectosigmoid region is still present. A second area which is more on the right side of the deeper pelvis is less defined than on this study but probably still there is some density present in this r egion. IMPRESSION: Pigtail catheter present within in the left sided abscess collection which is noticeably decreased in size on this examination. The smaller loculated collections in the deeper pelvis are fairly similar. POS: [facility]
[2019-10-08] MEDS: Ondansetron PF 4 MG/2 ML Vial IVP PRN (18:09)
[2019-10-09] MEDS: Ampicillin/Sulbactam 3 GM in Sodium Chloride 0.9% 100 ML IVPB SCH ×4 (03:05→21:04)
[2019-10-09] MEDS: Ondansetron PF 4 MG/2 ML Vial IVP PRN (04:25)
[2019-10-09] MEDS: oxyCODONE/Acetaminophen 5 mg/325 mg Tablet PO PRN ×4 (04:28→22:47)
[2019-10-09] MEDS: Ketorolac Tromethamine 30 MG/ML VIAL IVP PRN ×3 (04:29→21:06)
[2019-10-09 05:56] LABS: #Eosinphils 0.2 thou/uL (0.0-0.7); #Lymphocytes 1.8 thou/uL (1.20-3.40); #Monocytes 0.5 thou/uL (0.11-0.59); #Neutrophils 2.4 thou/uL (1.40-6.50); %Basophils 0.5 % (0.0-1.0); %Eosinophils 4.9 % (0.0-10.0); %Lymphocytes 36.2 % (21.0-51.0); %Monocytes 9.6 % (0.0-10.0); %Neutrophils 48.8 % (42.0-75.0); Hemoglobin 11.7 g/dL (12.0-16.0); Mean Corpuscular HGB CONC 34.9 g/dL (32.0-36.0); Mean Corpuscular Hemoglobin 34.5 pg (27.0-31.0); Mean Corpuscular Volume 99.1 fL (78.0-98.0); Mean Platelet Volume 6.3 fL (7.4-10.4); Platelet Count 452 thou/uL (130-400); RBC Distribution Width 13.4 % (11.5-14.5); Red Blood Cell (RBC) Count 3.39 mill/uL (4.20-5.40)
[2019-10-09] MEDS ORDERED: Promethazine HCl 25 MG/ML VIAL IM PRN (05:56)
[2019-10-09] MEDS ORDERED: Promethazine 25 MG TAB PO PRN (05:56)
[2019-10-09] MEDS ORDERED: Promethazine HCl 25 MG SUPP PR PRN (05:56)
[2019-10-09 06:08] LABS: Anion Gap 10 mmol/L (10-20); BUN (Urea Nitrogen) 7 mg/dL (9.8-20.1); Calc. Creatinine Clearance 76 mL/min (70-130); Carbon Dioxide 29 mmol/L (23-31); Chloride 103 mmol/L (98-107); Estimated GFR-MDRD Greater than 90; Glucose 87 mg/dL (80-115); Potassium 3.5 mmol/L (3.5-5.1); Sodium 138 mmol/L (136-145)
[2019-10-09] MEDS: Ibuprofen 600 MG TAB PO PRN ×2 (10:44→16:22)
[2019-10-09] MEDS: Enoxaparin Sodium 30 MG/0.3 ML SYRINGE SC SCH (10:44)
[2019-10-09] MEDS: Fluconazole 100 MG TAB PO SCH (10:44)
[2019-10-09] MEDS: Famotidine 20 MG TAB PO SCH ×2 (10:44→21:04)
--- NOTE | 2019-10-09 12:13 | PDOC.HOSPP ---
- Subjective Encounter Date: 10/09/19 Encounter Time: 12:00 Subjective: f/u for pelvic abscess s/p pigtail catheter placement. CT abd/pelvis imaging shows decreased volume with some residual. - Objective Vital Signs & Weight: Vital Signs (12 hours) Temp Pulse Resp BP Pulse Ox 10/09/19 08:00 96.6 F L 63 18 157/86 H 97 10/09/19 03:23 98.4 F 63 18 150/83 H 98 Weight Admit Weight 114 lb Weight 114 lb 4.8 oz I&O: 10/08/19 10/09/19 10/10/19 06:59 06:59 06:59 Intake Total 2580 1760 Output Total 465 1205 300 Balance -465 1375 1460 Result Diagrams: 10/09/19 05:14 10/09/19 05:14 Additional Labs: Laboratory Tests 10/07/19 10/09/19 22:40 05:14 Plt Count 512 H Neutrophils % 46.4 48.8 Microbiology 09/29/19 13:30 Abdomen - Abscess Bacterial Culture - Final Enterococcus avium Enterococcus faecalis Yeast species Radiology Reviewed by me: Yes (CT abd/pel - decreased abscess volume with catheter in place) Hospitalist ROS - Medication Medications: Active Medications Generic Name Dose Route Start Last Admin Trade Name Freq PRN Reason Stop Dose Admin Enoxaparin Sodium 30 mg 10/08/19 09:00 10/09/19 10:44 Lovenox SC 30 mg 0900 NANCY Administration Famotidine 20 mg 10/08/19 09:00 10/09/19 10:44 Pepcid PO 20 mg BID NANCY Administration Fluconazole 400 mg 10/08/19 09:00 10/09/19 10:44 Diflucan PO 400 mg DAILY NANCY Administration Ampicillin Sodium/Sulbactam 100 mls @ 200 mls/hr 10/08/19 08:45 10/09/19 10: 46 Sodium 3 gm/ Sodium Chloride IVPB 100 mls Q6H NANCY Administration Ibuprofen 600 mg 10/08/19 04:58 10/09/19 10:44 Motrin PO 600 mg Q6H PRN Administration PAIN SCALE 5-6 Ketorolac Tromethamine 30 mg 10/08/19 12:40 10/09/19 04:29 Toradol IVP 10/13/19 12:41 30 mg Q6H PRN Administration Pain Ondansetron HCl 4 mg 10/08/19 04:59 10/09/19 04:25 Zofran IVP 4 mg Q6H PRN Administration Nausea/Vomiting use 1st Oxycodone/Acetaminophen 1 tab 10/08/19 20:20 10/09/19 10:46 Percocet 5/325 PO 1 tab QIDPRN PRN Administration Moderate to Severe Pain (6-10) Scopolamine 1.5 mg 10/08/19 13:00 10/08/19 13:51 Transderm Scop TD 1.5 mg Q3D NANCY Administration - Exam General Appearance: NAD, awake alert Eye: PERRL, anicteric sclera ENT: normocephalic atraumatic, no oropharyngeal lesions Neck: supple, symmetric, no JVD, no thyromegaly, no lymphadenopathy Heart: RRR, no murmur, no gallops, no rubs, normal peripheral pulses Heart - other findings: S1, S2 Respiratory: CTAB, no wheezes, no rales, no ronchi, normal chest expansion Gastrointestinal: soft, non-distended, normal bowel sounds, no guarding, tender to palpation Gastrointestinal - other findings: colostomy intact, L nephrostomy in flank, percut drain in place Extremities: no cyanosis, no clubbing, no edema Skin: normal turgor, no lesions Neurological: cranial nerve grossly intact, no new deficit Musculoskeletal: normal tone, generalized weakness Psychiatric: normal affect, A&O x 3 Hosp A/P (1) Pelvic abscess Code(s): [id number] - Status: Acute Plan: s/p Percutaneous drainage with decreased volume of abscess by CT imaging, continue Unasyn IV (2) Diverticulitis Code(s): K57.92 - DVTRCLI OF INTEST, PART UNSP, W/O PERF OR ABSCESS W/O BLEED Status: Chronic Plan: Supportive mgmt (3) Hydronephrosis of left kidney Code(s): N13.30 - UNSPECIFIED HYDRONEPHROSIS Status: Chronic Plan: continue L nephrostomy drain (4) Tobacco abuse Code(s): Z72.0 - TOBACCO USE Status: Chronic Plan: Tobacco cessation resources - Plan continue antibiotics, 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
--- NOTE | 2019-10-09 12:17 | PRG ---
DATE OF SERVICE: 10/09/2019 SUBJECTIVE: Ms. Jones is doing well today. Temperature 96.6 degrees, heart rate 63, blood pressure 157/86. White count is normal. Hemoglobin is 11.7. Basic metabolic profile is normal. Drainage from her drain is very scant. CAT scan reveals resolution of the previous abscess, but some other surrounding fluid collections which are probably nonsignificant. ASSESSMENT AND PLAN: Abdominal pain. We will await Dr. Hanna' opinion regarding antibiotics. The patient possibly will be discharged home on oral antibiotics. We will discuss Radiology, and probably, we will remove her drain prior to discharge. Job ID: [id number]
--- NOTE | 2019-10-09 14:59 | PRG ---
DATE OF SERVICE: 10/09/2019 SUBJECTIVE: Ms. Jones was at home and had started with her treatments with Unasyn for the PICC line in [place], but somehow an administration person told her that she could not continue because there was some discrepancies in her paperwork and told her that she was not going to receive treatment and started out after 4 p.m. on Thursday, which is kind of unusual since quite a lot had been put into this planning before she was discharged from the hospital. So, certainly it appears to be an administrative problem rather than the patient's issue. So, she decided to come to the emergency room and was admitted. She continues on Unasyn. Dr. Wray has repeated the CAT scan and showed marked improvement. A few small collections left in place, so the drain has been pulled. She still has the nephrostomy tube. She is feeling better now, but still with nausea. I discussed the possibility of transitioning to oral antimicrobials, but she is afraid she would not be able to tolerate the oral intake. OBJECTIVE: VITAL SIGNS: Have been normal except for mild elevation of systolic blood pressure. O2 saturations are good. GENERAL: Awake, alert, oriented, pleasant. LUNGS: Diminished lung sounds as usual. HEART: S1 and S2 regular rate. ABDOMEN: With very mild tenderness. She has a colostomy, which appears normal. She is voiding normally. LABORATORY DATA: White cell count , hemoglobin 11.7, platelets 452, which is a bit high as expected with the inflammatory process. Creatinine 0.64. Liver profile normal. Albumin 3.3, which is little bit lower than before. Previous microbiology as noted. She is currently receiving Unasyn and fluconazole as prescribed. Repeat imaging on 10/07 revealed a pigtail catheter. This has been removed now. The left side abscess collection is noticeably decreased in size and a smaller loculated collections in the deeper pelvis fairly similar. ASSESSMENT AND DISCUSSION: Diverticulitis; obstruction in left kidney outflow tract; percutaneous nephrostomy; diverting colostomy; suture line abscess, which has been drained and now drain removed; administrative issues, which led to readmission because the patient was not going to be able to continue receiving her antimicrobial therapy; persistence of nausea. I believe at this point, it would be risky to switch her to oral medication particularly because of her nausea and the fact that this is not the first attempt at treating this inflammatory process. We should persist with the plan to continue Unasyn plus oral Diflucan. If push comes to shove in the next few days, her nausea improves, then we could try converting to oral Augmentin a higher dose or amoxicillin higher dose plus Diflucan, but I would prefer to continue the IV therapy at this point. Job ID: [id number]
[2019-10-09] MEDS ORDERED: oxyCODONE/Acetaminophen 5 mg/325 mg Tablet PO SCH (15:45)
[2019-10-09] MEDS ORDERED: Polyethylene Glycol 3350 17 GM Packet PO SCH ×2 (15:45→21:00)
[2019-10-09] MEDS: diphenhydrAMINE 50 MG CAP PO PRN (21:04)
[2019-10-09] MEDS ORDERED: Clotrimazole 2% 3 Day Vag Cr 22.2 GM TUBE VAG PRN (21:21)
[2019-10-09] MEDS: hydrALAZINE 20 MG/ML VIAL SLOW IVP PRN (22:59)
[2019-10-10] MEDS: Ampicillin/Sulbactam 3 GM in Sodium Chloride 0.9% 100 ML IVPB SCH ×2 (03:26→10:07)
[2019-10-10] MEDS: diphenhydrAMINE 50 MG CAP PO PRN ×4 (03:28→21:21)
[2019-10-10] MEDS: oxyCODONE/Acetaminophen 5 mg/325 mg Tablet PO PRN ×4 (03:28→21:22)
[2019-10-10 06:26] LABS: #Eosinphils 0.2 thou/uL (0.0-0.7); #Lymphocytes 1.7 thou/uL (1.20-3.40); #Monocytes 0.5 thou/uL (0.11-0.59); #Neutrophils 2.8 thou/uL (1.40-6.50); %Basophils 0.4 % (0.0-1.0); %Eosinophils 4.8 % (0.0-10.0); %Lymphocytes 31.9 % (21.0-51.0); %Monocytes 9.3 % (0.0-10.0); %Neutrophils 53.7 % (42.0-75.0); Mean Corpuscular HGB CONC 34.2 g/dL (32.0-36.0); Mean Corpuscular Hemoglobin 33.5 pg (27.0-31.0); Mean Platelet Volume 6.1 fL (7.4-10.4); Platelet Count 496 thou/uL (130-400); RBC Distribution Width 13.3 % (11.5-14.5); Red Blood Cell (RBC) Count 3.57 mill/uL (4.20-5.40); White Blood Cell (WBC) Count 5.2 thou/uL (4.8-10.8)
[2019-10-10 06:45] LABS: Anion Gap 11 mmol/L (10-20); BUN (Urea Nitrogen) 8 mg/dL (9.8-20.1); Calc. Creatinine Clearance 68 mL/min (70-130); Calcium 8.5 mg/dL (7.8-10.44); Carbon Dioxide 30 mmol/L (23-31); Chloride 102 mmol/L (98-107); Estimated GFR-MDRD 84; Glucose 96 mg/dL (80-115); Potassium 3.8 mmol/L (3.5-5.1); Sodium 139 mmol/L (136-145)
[2019-10-10] MEDS: Enoxaparin Sodium 30 MG/0.3 ML SYRINGE SC SCH (10:13)
[2019-10-10] MEDS: Famotidine 20 MG TAB PO SCH ×2 (10:14→21:21)
[2019-10-10] MEDS: Fluconazole 100 MG TAB PO SCH (10:14)
[2019-10-10] MEDS: Polyethylene Glycol 3350 17 GM Packet PO SCH (10:15)
[2019-10-10] MEDS: hydrALAZINE 20 MG/ML VIAL SLOW IVP PRN (12:06)
[2019-10-10] MEDS ORDERED: Acetaminophen 500 MG TAB PO PRN (12:53)
--- NOTE | 2019-10-10 13:18 | PRG ---
DATE OF SERVICE: 10/10/2019 SUBJECTIVE: Alessandra Jones is doing fairly well today. She still asks for Percocet frequently and wants more than one 4 times a day. She, however, tells me that her pain is improving and she thinks she can stop the Percocet soon. I have told her she would be better served taking Tylenol and Motrin for pain. The patient has been evaluated by Dr. Hanna, who believed she would best be served with intravenous antibiotic course and that has been arranged. The patient can be discharged home from my standpoint whenever outpatient antibiotic therapy is arranged. We have discontinued her morphine as she complains of this. She complains of itching. She states that she has itching in the past. I have told her it may be due to the Percocet and she would best be served taking the Tylenol and Motrin. We have discontinued her morphine. OBJECTIVE: LUNGS: Clear to auscultation. CARDIAC: Regular rate and rhythm without murmur or gallop. ABDOMEN: Soft. LABORATORY DATA: White count 5, hemoglobin 12. Basic metabolic profile normal. ASSESSMENT AND PLAN: Recovering diverticulitis with diverting colostomy with PICC line. Awaiting outpatient antibiotic therapy. Dr. Smallwood will return tomorrow. She has an appointment to see Dr. Smallwood tomorrow. Dr. Smallwood will see her in the hospital if she is still here. The patient is ready for discharge whenever outpatient antibiotics are arranged. Job ID: [id number]
--- NOTE | 2019-10-10 14:46 | PRG ---
DATE OF SERVICE: 10/10/2019 SUBJECTIVE: Ms. Jones is having pruritus, which is pretty widespread. There is some erythema, but seems to be associated with her scratching herself. No vomiting. Mild abdominal pain. No respiratory symptoms. OBJECTIVE: VITAL SIGNS: T-max 98.4, blood pressure 160/90, pulse 61, respirations 16, and O2 saturation 97. SKIN: She has those areas of excoriation in the extremities from the itching. A little area of erythema where the Phenergan injection was given recently. LUNGS: Clear. HEART: S1 and S2, regular rate. ABDOMEN: Soft, not distended or tender. LABORATORY DATA: White cell count is 5.2, hemoglobin 12, platelets 496. Sodium 139, creatinine 0.71. Transaminase is normal. ASSESSMENT AND DISCUSSION: Diverticulitis, obstruction of left ureter, percutaneous nephrostomy, colon diversion with colostomy, Priscilla procedure, stitch abscess probably, status post percutaneous drainage with marked improvement, adverse reactions to medications, inability to take Flagyl, possible hypersensitive reaction to Augmentin. We will switch her to vancomycin. Continue Diflucan. The plan is for discharge on IV vancomycin covering the enterococcus plus Diflucan covering the yeast. No anaerobic coverage or not very significant anaerobic coverage. She cannot take Flagyl, so kind of in a bind here. Hopefully, this will work. Otherwise, we will have to try some like meropenem or something somewhere. Job ID: [id number]
--- NOTE | 2019-10-10 14:55 | PDOC.HOSPP ---
- Subjective Encounter Date: 10/10/19 Encounter Time: 14:40 Subjective: f/u for diverticulitis with abscess following diverting colostomy and now s/p percutaneous catheter with removal. Receiving Vancomycin after apparent reaction to Unasyn. - Objective Vital Signs & Weight: Vital Signs (12 hours) Temp Pulse Resp BP Pulse Ox 10/10/19 12:06 61 10/10/19 11:40 98.3 F 61 16 169/93 H 97 10/10/19 08:00 98.4 F 64 18 166/87 H 96 10/10/19 03:00 98.1 F 82 16 160/89 H 97 Weight Admit Weight 114 lb Weight 114 lb 4.8 oz I&O: 10/09/19 10/10/19 10/11/19 06:59 06:59 06:59 Intake Total 2580 5080 Output Total 1205 3100 Balance 1375 1980 Result Diagrams: 10/10/19 06:15 10/10/19 06:15 Additional Labs: Microbiology 09/29/19 13:30 Abdomen - Abscess Bacterial Culture - Final Enterococcus avium Enterococcus faecalis Yeast species Laboratory Tests 10/07/19 10/09/19 22:40 05:14 Plt Count 512 H Neutrophils % 46.4 48.8 Hospitalist ROS - Medication Medications: Active Medications Generic Name Dose Route Start Last Admin Trade Name Freq PRN Reason Stop Dose Admin Clotrimazole 0 gm 10/09/19 21:21 10/09/19 22:51 Clotrimazole 2% 3 Day Vag Cr VAG 1 applic BID PRN Administration Itching Diphenhydramine HCl 50 mg 10/08/19 13:36 10/10/19 10:14 Benadryl PO 50 mg Q6H PRN Administration Itching & Insomnia Enoxaparin Sodium 30 mg 10/08/19 09:00 10/10/19 10:13 Lovenox SC 30 mg 0900 NANCY Administration Famotidine 20 mg 10/08/19 09:00 10/10/19 10:14 Pepcid PO 20 mg BID NANCY Administration Fluconazole 400 mg 10/08/19 09:00 10/10/19 10:14 Diflucan PO 400 mg DAILY NANCY Administration Hydralazine HCl 10 mg 10/08/19 04:59 10/10/19 12:06 Apresoline SLOW IVP 10 mg Q6H PRN Administration SBP GREATER THAN 160 Ibuprofen 600 mg 10/08/19 04:58 10/09/19 16:22 Motrin PO 600 mg Q6H PRN Administration PAIN SCALE 5-6 Ketorolac Tromethamine 30 mg 10/08/19 12:40 10/09/19 21:06 Toradol IVP 10/13/19 12:41 30 mg Q6H PRN Administration Pain Ondansetron HCl 4 mg 10/08/19 04:59 10/09/19 04:25 Zofran IVP 4 mg Q6H PRN Administration Nausea/Vomiting use 1st Oxycodone/Acetaminophen 1 tab 10/08/19 20:20 10/10/19 10:18 Percocet 5/325 PO 1 tab QIDPRN PRN Administration Moderate to Severe Pain (6-10) Polyethylene Glycol 17 gm 10/10/19 09:00 10/10/19 10:15 Miralax PO 17 gm DAILY NANCY Administration Scopolamine 1.5 mg 10/08/19 13:00 10/08/19 13:51 Transderm Scop TD 1.5 mg Q3D NANCY Administration - Exam General Appearance: NAD, awake alert Eye: PERRL, anicteric sclera ENT: normocephalic atraumatic, no oropharyngeal lesions Neck: supple, symmetric, no JVD, no thyromegaly, no lymphadenopathy Heart: RRR, no murmur, no gallops, no rubs, normal peripheral pulses Heart - other findings: S1, S2 Respiratory: CTAB, no wheezes, no rales, no ronchi, normal chest expansion Gastrointestinal: soft, non-distended, normal bowel sounds, no guarding, no rigidity Gastrointestinal - other findings: + colostomy, L nephrostomy tube in place Extremities: no cyanosis, no clubbing, no edema Skin: normal turgor Neurological: cranial nerve grossly intact, no new deficit Musculoskeletal: normal tone, normal strength Psychiatric: normal affect, A&O x 3 Hosp A/P (1) Pelvic abscess Code(s): [id number] - Status: Acute Plan: s/p perc drainage and now removal, continue IV Vancomycin with plans for outpt rx with PICC line (2) Diverticulitis Code(s): K57.92 - DVTRCLI OF INTEST, PART UNSP, W/O PERF OR ABSCESS W/O BLEED Status: Chronic (3) Hydronephrosis of left kidney Code(s): N13.30 - UNSPECIFIED HYDRONEPHROSIS Status: Chronic (4) Tobacco abuse Code(s): Z72.0 - TOBACCO USE Status: Chronic - Plan continue antibiotics, social service assistant, out of bed/ambulate, DVT proph w/SCDs Stable overall Unasyn d/c'd Continue Vancomycin IV Continue Diflucan 400mg po daily OOB/ambulate CM for coordination for outpt IV abx AM lab: BMP, CBC, Vanc trough
[2019-10-10] MEDS: Vancomycin HCl 750 MG in Sodium Chloride 0.9% 250 ML 250 ML IVPB SCH (15:24)
[2019-10-10] MEDS ORDERED: Vancomycin HCl 1.25 GM in Sodium Chloride 0.9% 250 ML 250 ML IVPB SCH (21:00)
[2019-10-10] MEDS ORDERED: Amoxicillin/Potassium Clav 875 MG TAB PO SCH (21:00)
[2019-10-10] MEDS: Ketorolac Tromethamine 30 MG/ML VIAL IVP PRN (22:15)
[2019-10-11] MEDS: Vancomycin HCl 750 MG in Sodium Chloride 0.9% 250 ML 250 ML IVPB SCH ×2 (02:44→13:43)
[2019-10-11] MEDS: diphenhydrAMINE 50 MG CAP PO PRN ×3 (02:44→20:28)
[2019-10-11] MEDS: oxyCODONE/Acetaminophen 5 mg/325 mg Tablet PO PRN ×4 (02:44→20:29)
[2019-10-11 06:41] LABS: #Basophils 0.1 thou/uL (0.0-0.2); #Eosinphils 0.3 thou/uL (0.0-0.7); #Lymphocytes 1.6 thou/uL (1.20-3.40); #Monocytes 0.6 thou/uL (0.11-0.59); #Neutrophils 4.5 thou/uL (1.40-6.50); %Basophils 1.1 % (0.0-1.0); %Eosinophils 3.6 % (0.0-10.0); %Lymphocytes 22.8 % (21.0-51.0); %Monocytes 8.3 % (0.0-10.0); %Neutrophils 64.3 % (42.0-75.0); Mean Corpuscular HGB CONC 34.8 g/dL (32.0-36.0); Mean Corpuscular Volume 97.6 fL (78.0-98.0); Mean Platelet Volume 6.3 fL (7.4-10.4); Platelet Count 533 thou/uL (130-400); RBC Distribution Width 13.4 % (11.5-14.5); Red Blood Cell (RBC) Count 3.54 mill/uL (4.20-5.40)
[2019-10-11 06:58] LABS: Anion Gap 8 mmol/L (10-20); BUN (Urea Nitrogen) 9 mg/dL (9.8-20.1); Calc. Creatinine Clearance 74 mL/min (70-130); Calcium 8.7 mg/dL (7.8-10.44); Carbon Dioxide 30 mmol/L (23-31); Chloride 102 mmol/L (98-107); Estimated GFR-MDRD Greater than 90; Glucose 94 mg/dL (80-115); Potassium 3.8 mmol/L (3.5-5.1); Sodium 136 mmol/L (136-145)
[2019-10-11] MEDS: Fluconazole 100 MG TAB PO SCH (09:06)
[2019-10-11] MEDS: Famotidine 20 MG TAB PO SCH ×2 (09:07→20:28)
[2019-10-11] MEDS: Enoxaparin Sodium 30 MG/0.3 ML SYRINGE SC SCH (09:08)
[2019-10-11] MEDS: Polyethylene Glycol 3350 17 GM Packet PO SCH (09:10)
[2019-10-11] MEDS ORDERED: oxyCODONE/Acetaminophen 5 mg/325 mg Tablet PO PRN (12:21)
[2019-10-11] MEDS: Scopolamine 1.5 mg/72 hour Patch TD SCH (13:44)
[2019-10-11] MEDS: hydrALAZINE 20 MG/ML VIAL SLOW IVP PRN (15:29)
--- NOTE | 2019-10-12 01:05 | DIS ---
DATE OF ADMISSION: 10/08/2019 DATE OF DISCHARGE: 10/12/2019 DISCHARGE DIAGNOSES: 1. Diverticulitis with pelvic abscess, status post percutaneous drainage. 2. Chronic diverticulitis. 3. Hydronephrosis of the left kidney, status post left nephrostomy tube placement. 4. Tobacco use. CONSULTATIONS: 1. Dr. Werner Hanna with Infectious Disease Service. 2. Dr. Nroris Wray with General Surgery Service. PERTINENT LABORATORY AND X-RAY FINDINGS: Albumin 3.3, lipase 46. LFTs within normal limits. CBC showed a white blood cell count ranged between 5.0 to 7.0, hemoglobin ranged between 11.7 to 12.6. Abdominal abscess culture dated 09/29/2019, showed Enterococcus avium and Enterococcus faecalis with yeast species. CT of the abdomen and pelvis dated 10/08/2019, showed a pigtail catheter present in the left-sided abscess overall with decreased volume. HOSPITAL COURSE: The patient initially presented with increased abdominal pain in the context of prior left-sided diverticulitis with left-sided percutaneous drainage colostomy with Priscilla pouch and hydronephrosis requiring nephrostomy tube placement. The patient previously discharged on IV Unasyn, presenting with increased abdominal pain. The patient underwent CT imaging of the abdomen and pelvis showing overall decreased volume of pelvic abscess with pigtail catheter in appropriate positioning. The patient continued with the pigtail catheter drainage, initially receiving IV Unasyn, switching to IV vancomycin due to questionable drug reaction. The patient continued on oral Diflucan and was monitored by the Infectious Disease and General Surgery Service. Overall, the patient did remain clinically stable with decreased abdominal discomfort after supportive management. The patient remained afebrile throughout the hospital course and tolerated regular oral intake. Current recommendations are to continue IV vancomycin until 11/08/2019. I have examined the patient at the time of discharge and discussed followup instructions. The patient verbalizes understanding and agreement and ready for discharge on 10/11/2019. DISCHARGE MEDICATIONS: 1. Vancomycin 1.5 g IV daily until 11/08/2019. 2. Diflucan 400 mg p.o. daily. 3. Ibuprofen 400 mg p.o. q.6 hours p.r.n. 4. Percocet 5/325 mg 1 to 2 tablets p.o. q.4 to 6 hours p.r.n. pain. 5. Scopolamine patch 1.5 mg transdermally q.72 hours. FOLLOWUP: The patient will follow up with Dr. Bryant Smallwood and to call our office for appointment time and date. The patient will follow up with Dr. Werner Hanna with Infectious Disease Service in 3 to 4 weeks. The patient will follow up with Dr. Navid Hernandez within 7 days of discharge. CONDITION ON DISCHARGE: Stable. ACTIVITY: Ad-mesha. DIET: Regular. CODE STATUS: Full. SPECIAL INSTRUCTIONS: The patient will receive home health services including infusion services for IV vancomycin until 11/08/2019. Weekly CBC, CMP, CRP, and vancomycin trough levels. DISPOSITION: Home with Home Health Services, 10/11/2019. TIME SPENT: Total time preparing and coordinating discharge is 34 minutes. ADDENDUM: HOSPITAL COURSE: The patient's discharge was held for approximately 24 hours due to issues with transportation. The patient remained clinically stable through the remainder of the hospital course. The patient continues to tolerate regular oral intake with stable vital signs. I have examined the patient at the time of discharge and discussed followup instructions. The patient verbalizes understanding and agreement, ready for discharge, 10/12/2019. Job ID: [id number]
[2019-10-12] MEDS: Vancomycin HCl 750 MG in Sodium Chloride 0.9% 250 ML 250 ML IVPB SCH (02:56)
[2019-10-12] MEDS: oxyCODONE/Acetaminophen 5 mg/325 mg Tablet PO PRN ×2 (02:59→09:53)
[2019-10-12] MEDS: diphenhydrAMINE 50 MG CAP PO PRN (02:59)
[2019-10-12 09:16] VITALS: BP 144/84; TEMP 98.6
[2019-10-12] MEDS: Famotidine 20 MG TAB PO SCH (09:33)
[2019-10-12] MEDS: Fluconazole 100 MG TAB PO SCH (09:33)
[2019-10-12] MEDS: Enoxaparin Sodium 30 MG/0.3 ML SYRINGE SC SCH (09:34)
[2019-10-12] MEDS: Polyethylene Glycol 3350 17 GM Packet PO SCH (09:34)
--- NOTE | 2019-10-12 09:35 | PDOC.HOSPP ---
- Subjective Encounter Date: 10/11/19 Encounter Time: 13:00 Subjective: f/u for pelvic abscess s/p percutaneous drainage with removal currently receiving Vancomycin with plans for home IV abx. Feels better overall. - Objective Vital Signs & Weight: Vital Signs (12 hours) Temp Pulse Resp BP Pulse Ox 10/12/19 08:30 98.6 F 88 18 144/84 H 93 L 10/12/19 04:21 98.7 F 68 16 154/83 H 97 10/11/19 23:33 98.6 F 77 16 147/84 H 97 Weight Admit Weight 114 lb Weight 114 lb 4.8 oz I&O: 10/11/19 10/12/19 10/13/19 06:59 06:59 06:59 Intake Total 3700 3400 Output Total 1900 1250 Balance 1800 2150 Result Diagrams: 10/11/19 06:29 10/11/19 06:29 Additional Labs: Microbiology 09/29/19 13:30 Abdomen - Abscess Bacterial Culture - Final Enterococcus avium Enterococcus faecalis Yeast species Laboratory Tests 10/07/19 10/09/19 22:40 05:14 Plt Count 512 H Neutrophils % 46.4 48.8 Hospitalist ROS - Medication Medications: Active Medications Generic Name Dose Route Start Last Admin Trade Name Freq PRN Reason Stop Dose Admin Clonidine 0.1 mg 10/08/19 04:59 10/11/19 02:46 Catapres PO 0.1 mg BID PRN Administration SBP > 160 use second Clotrimazole 0 gm 10/09/19 21:21 10/09/19 22:51 Clotrimazole 2% 3 Day Vag Cr VAG 1 applic BID PRN Administration Itching Diphenhydramine HCl 50 mg 10/08/19 13:36 10/12/19 02:59 Benadryl PO 50 mg Q6H PRN Administration Itching & Insomnia Enoxaparin Sodium 30 mg 10/08/19 09:00 10/11/19 09:08 Lovenox SC 30 mg 09 NANCY Administration Famotidine 20 mg 10/08/19 09:00 10/11/19 20:28 Pepcid PO 20 mg BID NANCY Administration Fluconazole 400 mg 10/08/19 09:00 10/11/19 09:06 Diflucan PO 400 mg DAILY NANCY Administration Hydralazine HCl 10 mg 10/08/19 04:59 10/11/19 15:29 Apresoline SLOW IVP 10 mg Q6H PRN Administration SBP GREATER THAN 160 Ibuprofen 600 mg 10/08/19 04:58 10/09/19 16:22 Motrin PO 600 mg Q6H PRN Administration PAIN SCALE 5-6 Ketorolac Tromethamine 30 mg 10/08/19 12:40 10/10/19 22:15 Toradol IVP 10/13/19 12:41 30 mg Q6H PRN Administration Pain Ondansetron HCl 4 mg 10/08/19 04:59 10/09/19 04:25 Zofran IVP 4 mg Q6H PRN Administration Nausea/Vomiting use 1st Oxycodone/Acetaminophen 2 tab 10/11/19 12:21 10/12/19 02:59 Percocet 5/325 PO 2 tab QIDPRN PRN Administration Moderate to Severe Pain (6-10) Polyethylene Glycol 17 gm 10/10/19 09:00 10/11/19 09:10 Miralax PO Not Given DAILY NANCY Scopolamine 1.5 mg 10/08/19 13:00 10/11/19 13:44 Transderm Scop TD 1.5 mg Q3D NANCY Administration Sodium Chloride 10 ml 10/10/19 21:00 10/11/19 20:29 Flush - Normal Saline IVF 10 ml Q12HR NANCY Administration - Exam General Appearance: NAD, awake alert Eye: PERRL, anicteric sclera ENT: normocephalic atraumatic, no oropharyngeal lesions Neck: supple, symmetric, no JVD, no thyromegaly, no lymphadenopathy Heart: RRR, no murmur, no gallops, no rubs, normal peripheral pulses Heart - other findings: S1, S2 Respiratory: CTAB, no wheezes, no rales, no ronchi, normal chest expansion Gastrointestinal: soft, non-distended, normal bowel sounds, no palpable masses Gastrointestinal - other findings: + colostomy in place Extremities: no cyanosis, no clubbing, no edema Skin: normal turgor, no lesions Neurological: cranial nerve grossly intact, no new deficit Musculoskeletal: normal tone, normal strength Psychiatric: normal affect, A&O x 3 Hosp A/P (1) Pelvic abscess Code(s): [id number] - Status: Acute Plan: Continue IV Vancomycin (2) Diverticulitis Code(s): K57.92 - DVTRCLI OF INTEST, PART UNSP, W/O PERF OR ABSCESS W/O BLEED Status: Chronic Plan: Improved and resolving (3) Hydronephrosis of left kidney Code(s): N13.30 - UNSPECIFIED HYDRONEPHROSIS Status: Chronic Plan: s/p percutaneous nephrostomy tube (4) Tobacco abuse Code(s): Z72.0 - TOBACCO USE Status: Chronic - Plan continue antibiotics, social security specialist, out of bed/ambulate, DVT proph w/SCDs Stable overall Unasyn d/c'd Continue Vancomycin IV Continue Diflucan 400mg po daily OOB/ambulate CM for coordination for outpt IV abx Home in am
[2019-10-12] MEDS ORDERED: Vancomycin HCl 750 MG in Sodium Chloride 0.9% 250 ML 250 ML IVPB SCH (10:00)
== END 2019-10-12 13:45 | disposition home health service (06) | DRG 392 ==
LOC: ERS 21:46 → OBSVTOIN 10-08 00:56 → SURG B 10-08 00:56
PROVIDERS: ADMIT Internal Medicine; ATTEND Family Medicine
DX: K57.20 Diverticulitis of large intestine with perforation and abscess without bleeding (principal); N13.30 Unspecified hydronephrosis; N73.9 Female pelvic inflammatory disease, unspecified; J44.9 Chronic obstructive pulmonary disease, unspecified; F41.9 Anxiety disorder, unspecified; F17.200 Nicotine dependence, unspecified, uncomplicated; Z98.51 Tubal ligation status; Z93.3 Colostomy status; Z90.49 Acquired absence of other specified parts of digestive tract; Z71.6 Tobacco abuse counseling
CPT/HCPCS: 36415; 74177; 80048; 80053; 80202; 81003; 83690; 85025; 96365; 96366; 96375; J0295; J0360; J1650; J1885; J2270; J2405; J2550; J3370; J3490; J7050; Q0162; Q0163; Q9967

== ENCOUNTER 2020-03-02 08:21 | Day surgery (SDC) | payer OTHER, SELFPAY ==
[2020-03-01 15:50] VITALS: BMI 18.6
--- NOTE | 2020-03-02 10:51 | SPC ---
PROCEDURE: SPC PERC TUBE CHANGE S I PROVIDED CLINICAL HISTORY: Left nephrostomy tube replacement secondary to left ureteral obstruction. Replacement of nephrostomy tube requested. COMPARISON: None TECHNIQUE: After informed consent was obtained, the patient was placed on the angiography table in the prone pos ition. The left nephrostomy tube and surrounding area were meticulously prepped and draped in usual sterile fashion. Skin and subcutaneous tissues at catheter entry site were infiltrated with buffered 1% lidocaine for local anesthesia. The catheter was punctured with an 18-gauge needle, and a nephrostogram was performed. The catheter w as cut and exchanged over a 0.035 inch Glidewire for a new 8 [place] percutaneous nephrostomy tube. Distal portion of the catheter is positioned in the renal pelvis. Catheter was sutured in place with 2-0 Ethilon suture material and placed to gravity drainage. The patient tolerated the procedure well and without immediate complication. Dry sterile dressing was placed at catheter site. Fluoroscopy: Time-1.5 minutes Dose-3087 mGy centimeter squared IMPRESSION: 1. Technically successful left percutaneous nephrostomy tube replacement.
[2020-03-02 11:16] VITALS: BP 165/89; TEMP 97.4
--- NOTE | 2020-03-05 16:34 | SPC ---
PROCEDURE: SPC PERC TUBE CHANGE S I PROVIDED CLINICAL HISTORY: Left nephrostomy tube replacement secondary to left ureteral obstruction. Replacement of nephrostomy tube requested. COMPARISON: None TECHNIQUE: After informed consent was obtained, the patient was placed on the angiography table in the prone pos ition. The left nephrostomy tube and surrounding area were meticulously prepped and draped in usual sterile fashion. Skin and subcutaneous tissues at catheter entry site were infiltrated with buffered 1% lidocaine for local anesthesia. The catheter was punctured with an 18-gauge needle, and a nephrostogram was performed. The catheter w as cut and exchanged over a 0.035 inch Glidewire for a new 8 [place] percutaneous nephrostomy tube. Distal portion of the catheter is positioned in the renal pelvis. Catheter was sutured in place with 2-0 Ethilon suture material and placed to gravity drainage. The patient tolerated the procedure well and without immediate complication. Dry sterile dressing was placed at catheter site. Fluoroscopy: Time-1.5 minutes Dose-3087 mGy centimeter squared IMPRESSION: 1. Technically successful left percutaneous nephrostomy tube replacement. Transcribed Date/Time: 03/05/2020 4:33 PM
== END 2020-03-02 10:30 | disposition home or self-care (01) ==
LOC: SPEC 08:21
PROVIDERS: ATTEND Urology
PROC: 0T25X0Z Change Drainage Device in Kidney, External Approach (ICD-10-PCS; principal; 2020-03-02)
DX: N13.5 Crossing vessel and stricture of ureter without hydronephrosis (principal); F41.9 Anxiety disorder, unspecified; J44.9 Chronic obstructive pulmonary disease, unspecified; K21.9 Gastro-esophageal reflux disease without esophagitis; F17.200 Nicotine dependence, unspecified, uncomplicated; Z88.0 Allergy status to penicillin; Z88.1 Allergy status to other antibiotic agents; Z88.2 Allergy status to sulfonamides; Z88.5 Allergy status to narcotic agent; Z43.6 Encounter for attention to other artificial openings of urinary tract
CPT/HCPCS: 50431; 50436; 75984; C1729

== ENCOUNTER 2020-09-05 19:15 | Emergency (ER) | payer SELFPAY ==
[~2020-09-05 19:15] MED LIST changes: -Heparin 1,000 UNITS/ML VIAL ONE; +Iopamidol-370 76% 500 ML 1 ML ONE
[2020-09-05 19:45] LABS: #Basophils 0.1 thou/uL (0.0-0.2); #Eosinphils 0.2 thou/uL (0.0-0.7); #Lymphocytes 1.9 thou/uL (1.20-3.40); #Monocytes 1.1 thou/uL (0.11-0.59); #Neutrophils 5.5 thou/uL (1.40-6.50); %Eosinophils 1.8 % (0.0-10.0); %Monocytes 12.6 % (0.0-10.0); %Neutrophils 62.6 % (42.0-75.0); Hemoglobin 14.1 g/dL (12.0-16.0); Mean Corpuscular HGB CONC 33.3 g/dL (32.0-36.0); Mean Corpuscular Hemoglobin 32.6 pg (27.0-31.0); Mean Corpuscular Volume 97.9 fL (78.0-98.0); Mean Platelet Volume 6.1 fL (7.4-10.4); Platelet Count 335 thou/uL (130-400); RBC Distribution Width 12.3 % (11.5-14.5); Red Blood Cell (RBC) Count 4.32 mill/uL (4.20-5.40); White Blood Cell (WBC) Count 8.7 thou/uL (4.8-10.8)
[2020-09-05 20:10] LABS: ALT (SGPT) 17 U/L (8-55); AST (SGOT) 18 U/L (5-34); Albumin 3.6 g/dL (3.4-4.8); Alkaline Phosphatase 106 U/L (40-110); Anion Gap 12 mmol/L (10-20); BUN (Urea Nitrogen) 11 mg/dL (9.8-20.1); Bilirubin, Total 0.3 mg/dL (0.2-1.2); Calc. Creatinine Clearance 0 mL/min (70-130); Calcium 9.8 mg/dL (7.8-10.44); Carbon Dioxide 29 mmol/L (23-31); Chloride 104 mmol/L (98-107); Globulin 3.1 g/dL (2.4-3.5); Glucose 77 mg/dL (80-115); Potassium 4.3 mmol/L (3.5-5.1); Protein, Total 6.7 g/dL (5.8-8.1); Sodium 141 mmol/L (136-145)
[2020-09-05 20:11] LABS: CRP (Inflammatory) 0.88 mg/dL (= or < 0.5)
[2020-09-05 20:54] LABS: Bilirubin Negative (Negative); Blood, Urine 2+ (Negative); Clarity Turbid (Clear); Glucose, Urine (Dipstick) Normal (Negative); Ketone, Urine Negative (Negative); Leukocyte 500 Leu/uL (Negative); Nitrite 2+ (Negative); Protein, Urine (Dipstick) 20 mg/dL (Neg-Trace); Specific Gravity, Urine 1.025 (1.002-1.036); Urobilinogen Normal mg/dL (Less than 2); WBC/HPF Greater than 50 HPF (0-3); pH, Urine 5.5 (5.0-9.0)
[2020-09-05 20:55] LABS: Bacteria/HPF 1+ HPF (None Seen)
== END 2020-09-05 23:13 | disposition home or self-care (01) ==
LOC: ERS 19:15
DX: N39.0 Urinary tract infection, site not specified (principal); R19.00 Intra-abdominal and pelvic swelling, mass and lump, unspecified site; K43.2 Incisional hernia without obstruction or gangrene; K94.09 Other complications of colostomy; Z86.73 Personal history of transient ischemic attack (TIA), and cerebral infarction without residual deficits; F17.210 Nicotine dependence, cigarettes, uncomplicated; K57.92 Diverticulitis of intestine, part unspecified, without perforation or abscess without bleeding
CPT/HCPCS: 36415; 74177; 80053; 81003; 81015; 83605; 83690; 85025; 86140; 87077; 87086; 87186; 93005; Q9967

== ENCOUNTER 2020-09-26 07:28 | Day surgery (SDC) | payer SELFPAY ==
[2020-09-25 12:20] VITALS: BMI 21.2
[2020-09-26 09:28] VITALS: BP 127/99; TEMP 97.9
== END 2020-09-26 09:15 | disposition home or self-care (01) ==
LOC: SPEC 07:28
PROVIDERS: ATTEND Urology
PROC: 0T25X0Z Change Drainage Device in Kidney, External Approach (ICD-10-PCS; principal; 2020-09-26)
DX: N13.5 Crossing vessel and stricture of ureter without hydronephrosis (principal); F17.210 Nicotine dependence, cigarettes, uncomplicated; Z86.73 Personal history of transient ischemic attack (TIA), and cerebral infarction without residual deficits; Z88.0 Allergy status to penicillin; Z88.1 Allergy status to other antibiotic agents; Z88.2 Allergy status to sulfonamides; Z88.5 Allergy status to narcotic agent
CPT/HCPCS: 50430; 50431; 50436; C1729

== ENCOUNTER 2021-02-06 19:49 | Inpatient (IN) | payer OTHER ==
[2021-02-06 20:42] LABS: Hemoglobin 14.7 g/dL (12.0-16.0); Mean Corpuscular HGB CONC 34.6 g/dL (32.0-36.0); Mean Corpuscular Hemoglobin 33.4 pg (27.0-31.0); Mean Corpuscular Volume 96.6 fL (78.0-98.0); Mean Platelet Volume 6.7 fL (7.4-10.4); Platelet Count 235 thou/uL (130-400); RBC Distribution Width 12.2 % (11.5-14.5); Red Blood Cell (RBC) Count 4.41 mill/uL (4.20-5.40); White Blood Cell (WBC) Count 8.8 thou/uL (4.8-10.8)
[2021-02-06 21:00] LABS: ALT (SGPT) 11 U/L (8-55); AST (SGOT) 12 U/L (5-34); Albumin 3.4 g/dL (3.4-4.8); Alkaline Phosphatase 93 U/L (40-110); Anion Gap 11 mmol/L (10-20); BUN (Urea Nitrogen) 10 mg/dL (9.8-20.1); Bilirubin, Total 0.7 mg/dL (0.2-1.2); Calc. Creatinine Clearance 0 mL/min (70-130); Calcium 8.6 mg/dL (7.8-10.44); Carbon Dioxide 28 mmol/L (23-31); Chloride 100 mmol/L (98-107); Globulin 3.1 g/dL (2.4-3.5); Glucose 104 mg/dL (80-115); Potassium 3.9 mmol/L (3.5-5.1); Protein, Total 6.5 g/dL (5.8-8.1); Sodium 135 mmol/L (136-145)
[2021-02-06 21:05] LABS: Band 13 % (5-11); Lymphocytes 8 % (21-51); MDiff Complete? YES; Monocytes 20 % (0-10); Neutrophil 58 % (42-75); Platelet Morphology Comment Appears Adequate; RBC Morphology Normal; Reactive Lymphocytes 1 % (0-10)
[2021-02-06] MEDS ORDERED: Ondansetron PF 4 MG/2 ML Vial ONE (21:08)
[2021-02-06] MEDS ORDERED: Morphine 4 MG/ML VIAL ONE (21:08)
[2021-02-06] MEDS ORDERED: Cefepime 2 GM VIAL ONE (21:17)
[2021-02-06] MEDS ORDERED: Cefepime 1 GM VIAL ONE (21:19)
[2021-02-06] MEDS ORDERED: Vancomycin 1 GM/200 ML BAG ONE (22:08)
[2021-02-06 22:31] LABS: Bacteria/HPF 4+ HPF (None Seen); Bilirubin Negative (Negative); Blood, Urine 2+ (Negative); Clarity Extra Turbid (Clear); Glucose, Urine (Dipstick) Normal (Negative); Ketone, Urine Negative (Negative); Leukocyte 500 Leu/uL (Negative); Nitrite 2+ (Negative); Protein, Urine (Dipstick) 50 mg/dL (Neg-Trace); RBC/HPF 21-50 HPF (0-3); Specific Gravity, Urine 1.008 (1.002-1.036); Squamous Epithelial 0-3 HPF (0-3); Urobilinogen Normal mg/dL (Less than 2); WBC/HPF Greater than 50 HPF (0-3); pH, Urine 8.5 (5.0-9.0)
[2021-02-07 01:03] VITALS: BMI 18.1
[2021-02-07] MEDS: Acetaminophen 325 MG TAB PO PRN (03:51)
[2021-02-07 06:48] LABS: #Eosinphils 0.1 thou/uL (0.0-0.7); #Lymphocytes 1.3 thou/uL (1.20-3.40); #Monocytes 1.2 thou/uL (0.11-0.59); #Neutrophils 5.7 thou/uL (1.40-6.50); %Basophils 0.3 % (0.0-1.0); %Eosinophils 0.7 % (0.0-10.0); %Lymphocytes 15.3 % (21.0-51.0); %Monocytes 14.5 % (0.0-10.0); %Neutrophils 69.3 % (42.0-75.0); Hemoglobin 13.3 g/dL (12.0-16.0); Mean Corpuscular HGB CONC 34.7 g/dL (32.0-36.0); Platelet Count 228 thou/uL (130-400); RBC Distribution Width 12.1 % (11.5-14.5); Red Blood Cell (RBC) Count 4.02 mill/uL (4.20-5.40); White Blood Cell (WBC) Count 8.3 thou/uL (4.8-10.8)
[2021-02-07 07:00] LABS: Anion Gap 9 mmol/L (10-20); BUN (Urea Nitrogen) 7 mg/dL (9.8-20.1); Calc. Creatinine Clearance 61 mL/min (70-130); Calcium 8.5 mg/dL (7.8-10.44); Carbon Dioxide 30 mmol/L (23-31); Chloride 99 mmol/L (98-107); Glucose 106 mg/dL (80-115); Potassium 3.3 mmol/L (3.5-5.1); Sodium 135 mmol/L (136-145)
[2021-02-07] MEDS: Cefepime 1 GM in Sodium Chloride 0.9% 100 ML IVPB SCH ×2 (08:53→20:01)
[2021-02-07] MEDS ORDERED: FLU VACC QS2021-22(6MOS UP)/PF 60 MCG/0.5 ML SYRINGE IM ONE (09:00)
[2021-02-07 09:56] LABS: INR-International Normal Ratio 1.1; PTT 42.4 sec (22.9-36.1); Prothrombin Time 14.1 sec (12.0-14.7)
[2021-02-07] MEDS ORDERED: Fentanyl 100 MCG/2 ML VIAL ONE (10:44)
[2021-02-07] MEDS ORDERED: Heparin 1,000 UNITS/ML VIAL ONE (10:44)
[2021-02-07] MEDS ORDERED: Midazolam HCl 2 mg/2 ml Vial ONE (10:44)
[2021-02-07] MEDS ORDERED: Iopamidol 300 61% 50 ML VIAL FS ONE (11:50)
[2021-02-07] MEDS: Potassium Chloride 20 MEQ in Premix Bag 1 BAG IVPB SCH ×3 (12:17→16:17)
[2021-02-07 12:25] LABS: SARS-CoV-2 PCR by NAA Not Detected (NotDetected)
[2021-02-07] MEDS: Potassium Chloride 20 MEQ TAB PO SCH ×2 (12:48→17:52)
[2021-02-07] MEDS: ALPRAZolam 0.25 MG TAB PO PRN (14:14)
[2021-02-07] MEDS ORDERED: traMADol HCl 50 MG TAB PO PRN (14:29)
[2021-02-07] MEDS: Ibuprofen 600 MG TAB PO PRN (17:56)
[2021-02-07] MEDS: Ondansetron PF 4 MG/2 ML Vial IVP PRN (20:01)
[2021-02-08] MEDS: Ibuprofen 600 MG TAB PO PRN ×2 (05:08→22:39)
[2021-02-08] MEDS: ALPRAZolam 0.25 MG TAB PO PRN ×3 (05:08→22:39)
[2021-02-08] MEDS ORDERED: Lidocaine 2% Viscous Solution 10 ML, Aluminum & Magnesium Hydroxide 30 ML SSW SCH (05:30)
[2021-02-08 06:30] LABS: #Eosinphils 0.1 thou/uL (0.0-0.7); #Lymphocytes 1.1 thou/uL (1.20-3.40); #Monocytes 0.6 thou/uL (0.11-0.59); #Neutrophils 2.6 thou/uL (1.40-6.50); %Basophils 0.6 % (0.0-1.0); %Eosinophils 3.1 % (0.0-10.0); %Lymphocytes 24.9 % (21.0-51.0); %Neutrophils 57.4 % (42.0-75.0); Hemoglobin 13.3 g/dL (12.0-16.0); Mean Corpuscular HGB CONC 33.6 g/dL (32.0-36.0); Mean Corpuscular Hemoglobin 32.2 pg (27.0-31.0); Mean Corpuscular Volume 95.7 fL (78.0-98.0); Mean Platelet Volume 6.8 fL (7.4-10.4); Platelet Count 224 thou/uL (130-400); RBC Distribution Width 12.1 % (11.5-14.5); Red Blood Cell (RBC) Count 4.14 mill/uL (4.20-5.40); White Blood Cell (WBC) Count 4.6 thou/uL (4.8-10.8)
[2021-02-08 06:55] LABS: ALT (SGPT) 10 U/L (8-55); AST (SGOT) 12 U/L (5-34); Alkaline Phosphatase 77 U/L (40-110); Anion Gap 9 mmol/L (10-20); BUN (Urea Nitrogen) 10 mg/dL (9.8-20.1); Bilirubin, Total 0.3 mg/dL (0.2-1.2); Calc. Creatinine Clearance 65 mL/min (70-130); Calcium 8.4 mg/dL (7.8-10.44); Carbon Dioxide 29 mmol/L (23-31); Chloride 104 mmol/L (98-107); Globulin 2.8 g/dL (2.4-3.5); Glucose 131 mg/dL (80-115); Potassium 3.9 mmol/L (3.5-5.1); Protein, Total 5.8 g/dL (5.8-8.1); Sodium 138 mmol/L (136-145)
[2021-02-08] MEDS: Cefepime 1 GM in Sodium Chloride 0.9% 100 ML IVPB SCH ×2 (08:08→21:49)
[2021-02-08] MEDS ORDERED: Mag-Al Plus 1200 MG/1200 MG/120 MG/30 ML UDCUP PO PRN (10:38)
[2021-02-08] MEDS ORDERED: Pantoprazole 40 MG GRANULES PACKET PO SCH (11:00)
[2021-02-09 07:15] LABS: #Eosinphils 0.3 thou/uL (0.0-0.7); #Monocytes 0.8 thou/uL (0.11-0.59); #Neutrophils 2.2 thou/uL (1.40-6.50); %Basophils 0.6 % (0.0-1.0); %Eosinophils 5.3 % (0.0-10.0); %Lymphocytes 37.3 % (21.0-51.0); %Monocytes 14.6 % (0.0-10.0); %Neutrophils 42.1 % (42.0-75.0); Hemoglobin 15.6 g/dL (12.0-16.0); Mean Corpuscular HGB CONC 34.5 g/dL (32.0-36.0); Mean Corpuscular Hemoglobin 33.5 pg (27.0-31.0); Mean Corpuscular Volume 97.1 fL (78.0-98.0); Mean Platelet Volume 6.7 fL (7.4-10.4); Platelet Count 274 thou/uL (130-400); RBC Distribution Width 12.1 % (11.5-14.5); Red Blood Cell (RBC) Count 4.64 mill/uL (4.20-5.40); White Blood Cell (WBC) Count 5.3 thou/uL (4.8-10.8)
[2021-02-09 07:40] LABS: Anion Gap 10 mmol/L (10-20); BUN (Urea Nitrogen) 8 mg/dL (9.8-20.1); Calc. Creatinine Clearance 64 mL/min (70-130); Calcium 9.6 mg/dL (7.8-10.44); Carbon Dioxide 32 mmol/L (23-31); Chloride 101 mmol/L (98-107); Glucose 83 mg/dL (80-115); Potassium 4.5 mmol/L (3.5-5.1); Sodium 138 mmol/L (136-145)
[2021-02-09] MEDS: Cefepime 1 GM in Sodium Chloride 0.9% 100 ML IVPB SCH ×2 (08:23→21:42)
[2021-02-09] MEDS: Enoxaparin Sodium 30 MG/0.3 ML SYRINGE SC SCH (08:24)
[2021-02-09] MEDS: ALPRAZolam 0.25 MG TAB PO PRN ×2 (08:31→22:58)
[2021-02-09] MEDS ORDERED: Zolpidem Tartrate 5 MG TAB PO PRN (08:47)
[2021-02-09] MEDS ORDERED: Sodium Chloride 0.65% Nasal 44 ML BOT EA NARE PRN (08:47)
[2021-02-09] MEDS ORDERED: Hydrocerin (Eucerin) Cream 120 gm Jar TOP PRN (08:47)
[2021-02-09] MEDS ORDERED: Artificial Tear Sol 15 ML BOT EA EYE PRN (08:47)
[2021-02-09] MEDS ORDERED: hydrALAZINE 20 MG/ML VIAL SLOW IVP PRN (08:47)
[2021-02-09] MEDS ORDERED: Calcium Carbonate 500 MG ChewTAB PO PRN (08:47)
[2021-02-09] MEDS ORDERED: Cepastat Lozenges 1 LOZ PO PRN (08:47)
[2021-02-09] MEDS ORDERED: Loperamide HCl 2 MG CAP PO PRN (08:47)
[2021-02-09] MEDS ORDERED: Bisacodyl 5 MG TAB PO PRN (08:47)
[2021-02-09] MEDS ORDERED: Loratadine 10 MG TAB PO PRN (08:47)
[2021-02-09] MEDS ORDERED: Pantoprazole 40 MG GRANULES PACKET PO SCH (09:00)
[2021-02-09] MEDS ORDERED: Morphine 2 MG/ML VIAL SLOW IVP PRN (11:45)
[2021-02-09] MEDS: Morphine 4 MG/ML VIAL SLOW IVP PRN ×2 (17:32→21:54)
[2021-02-09] MEDS: Ondansetron PF 4 MG/2 ML Vial IVP PRN (22:59)
[2021-02-10] MEDS: Morphine 4 MG/ML VIAL SLOW IVP PRN ×4 (03:57→23:46)
[2021-02-10] MEDS: GUAIFENESIN SF SOLN 200 MG/10 ML UDCUP PO PRN ×2 (04:07→23:49)
[2021-02-10] MEDS: Enoxaparin Sodium 30 MG/0.3 ML SYRINGE SC SCH (08:48)
[2021-02-10] MEDS: Cefepime 1 GM in Sodium Chloride 0.9% 100 ML IVPB SCH ×2 (08:48→20:47)
[2021-02-10] MEDS: Acetaminophen 325 MG TAB PO PRN (09:01)
[2021-02-10] MEDS: Ondansetron ODT 4 MG TAB PO PRN (10:15)
[2021-02-10] MEDS: Ondansetron PF 4 MG/2 ML Vial IVP PRN (18:30)
[2021-02-10] MEDS: guaiFENesin ER 600 MG TAB PO SCH (20:48)
[2021-02-10] MEDS: ALPRAZolam 0.25 MG TAB PO PRN (20:54)
[2021-02-11] MEDS: guaiFENesin ER 600 MG TAB PO SCH ×2 (08:10→20:39)
[2021-02-11] MEDS: Enoxaparin Sodium 30 MG/0.3 ML SYRINGE SC SCH (08:10)
[2021-02-11] MEDS: Cefepime 1 GM in Sodium Chloride 0.9% 100 ML IVPB SCH ×2 (08:10→20:39)
[2021-02-11] MEDS: Morphine 4 MG/ML VIAL SLOW IVP PRN ×4 (08:11→23:41)
[2021-02-11] MEDS: Senokot S 8.6-50 MG TAB PO PRN (09:13)
[2021-02-11] MEDS: Ondansetron ODT 4 MG TAB PO PRN (13:37)
[2021-02-11] MEDS: GUAIFENESIN SF SOLN 200 MG/10 ML UDCUP PO PRN ×2 (18:38→23:40)
[2021-02-11] MEDS: ALPRAZolam 0.25 MG TAB PO PRN (23:40)
[2021-02-11] MEDS: Ondansetron PF 4 MG/2 ML Vial IVP PRN (23:42)
[2021-02-12] MEDS: GUAIFENESIN SF SOLN 200 MG/10 ML UDCUP PO PRN (04:34)
[2021-02-12] MEDS: Morphine 4 MG/ML VIAL SLOW IVP PRN ×2 (04:36→09:22)
[2021-02-12 09:03] VITALS: BP 112/76; TEMP 98.2
[2021-02-12] MEDS: guaiFENesin ER 600 MG TAB PO SCH (09:03)
[2021-02-12] MEDS: Cefepime 1 GM in Sodium Chloride 0.9% 100 ML IVPB SCH (09:04)
[2021-02-12] MEDS: Enoxaparin Sodium 30 MG/0.3 ML SYRINGE SC SCH (09:04)
[2021-02-12] MEDS: Senokot S 8.6-50 MG TAB PO PRN (09:21)
[2021-02-12] MEDS: ALPRAZolam 0.25 MG TAB PO PRN (09:22)
[2021-02-12] MEDS: Ondansetron ODT 4 MG TAB PO PRN (09:22)
== END 2021-02-12 14:39 | disposition home or self-care (01) | DRG 699 ==
LOC: ERS 19:49 → T4-A 02-07 00:02 → OBSVTOIN 02-08 10:27
PROVIDERS: ADMIT Internal Medicine; ATTEND Internal Medicine
PROC: 0T25X0Z Change Drainage Device in Kidney, External Approach (ICD-10-PCS; principal; 2021-02-07)
PROC: BT121ZZ Fluoroscopy of Left Kidney using Low Osmolar Contrast (ICD-10-PCS; 2021-02-07)
DX: T83.022A Displacement of nephrostomy catheter, initial encounter (principal); N13.6 Pyonephrosis; Z20.822 Contact with and (suspected) exposure to COVID-19; Y83.1 Surgical operation with implant of artificial internal device as the cause of abnormal reaction of the patient, or of later complication, without mention of misadventure at the time of the procedure; F17.210 Nicotine dependence, cigarettes, uncomplicated; E11.9 Type 2 diabetes mellitus without complications; F41.9 Anxiety disorder, unspecified; K21.9 Gastro-esophageal reflux disease without esophagitis; J44.9 Chronic obstructive pulmonary disease, unspecified; Z88.6 Allergy status to analgesic agent; Z88.0 Allergy status to penicillin; Z88.2 Allergy status to sulfonamides; Z88.8 Allergy status to other drugs, medicaments and biological substances; Z86.73 Personal history of transient ischemic attack (TIA), and cerebral infarction without residual deficits; Z93.3 Colostomy status; Z86.16 Personal history of COVID-19; Z79.899 Other long term (current) drug therapy; Z98.51 Tubal ligation status
CPT/HCPCS: 36415; 50431; 50436; 71045; 71250; 74177; 78707; 80048; 80053; 81003; 81015; 83605; 83735; 85025; 85610; 85730; 87040; 87077; 87086; 87186; 93005; 94640; 96365; 96366; 96367; 96375; 96376; A9562; C1729; G0378; J0692; J1644; J1650; J2250; J2270; J2405; J3010; J3370; J3480; J3490; J7620; Q0162; Q9967; U0003; U0005

== ENCOUNTER 2021-11-29 08:46 | Day surgery (SDC) | payer OTHER ==
[2021-11-15 12:01] VITALS: BMI 18.6
[2021-11-29 10:22] VITALS: BP 158/115; TEMP 97.6
== END 2021-11-29 11:55 | disposition home or self-care (01) ==
LOC: SPEC 08:46
PROVIDERS: ATTEND Urology
PROC: 0T25X0Z Change Drainage Device in Kidney, External Approach (ICD-10-PCS; principal; 2021-11-29)
DX: N13.5 Crossing vessel and stricture of ureter without hydronephrosis (principal); K57.92 Diverticulitis of intestine, part unspecified, without perforation or abscess without bleeding; Z88.0 Allergy status to penicillin; Z88.1 Allergy status to other antibiotic agents; Z88.2 Allergy status to sulfonamides; Z86.73 Personal history of transient ischemic attack (TIA), and cerebral infarction without residual deficits
CPT/HCPCS: 50431; 50436; C1729

== ENCOUNTER 2022-01-27 03:28 | Emergency (ER) | payer OTHER ==
[2022-01-27] MEDS ORDERED: Acetaminophen 500 MG TAB ONE (03:54)
[2022-01-27] MEDS ORDERED: cefTRIAXone\\ROCEPHIN 2 GM VIAL ONE (03:54)
[2022-01-27 04:29] LABS: #Eosinphils 0.2 thou/uL (0.0-0.7); #Lymphocytes 2.3 thou/uL (1.20-3.40); #Monocytes 0.7 thou/uL (0.11-0.59); #Neutrophils 3.7 thou/uL (1.40-6.50); %Basophils 0.3 % (0.0-1.0); %Eosinophils 2.2 % (0.0-10.0); %Monocytes 10.3 % (0.0-10.0); %Neutrophils 54.2 % (42.0-75.0); Hemoglobin 14.6 g/dL (12.0-16.0); Mean Corpuscular HGB CONC 32.9 g/dL (32.0-36.0); Mean Corpuscular Hemoglobin 31.9 pg (27.0-31.0); Mean Corpuscular Volume 96.9 fL (78.0-98.0); Mean Platelet Volume 6.5 fL (7.4-10.4); Platelet Count 342 thou/uL (130-400); RBC Distribution Width 13.7 % (11.5-14.5); Red Blood Cell (RBC) Count 4.57 mill/uL (4.20-5.40); White Blood Cell (WBC) Count 6.9 thou/uL (4.8-10.8)
[2022-01-27 04:31] LABS: Bacteria/HPF None Seen HPF (None Seen); Bilirubin Negative (Negative); Blood, Urine 2+ (Negative); Clarity Clear (Clear); Glucose, Urine (Dipstick) Normal (Negative); Ketone, Urine Trace mg/dL (Negative); Leukocyte 25 Leu/uL (Negative); Nitrite Negative (Negative); Protein, Urine (Dipstick) 20 mg/dL (Neg-Trace); Specific Gravity, Urine 1.026 (1.002-1.036); Squamous Epithelial 0-3 HPF (0-3); Urobilinogen Normal mg/dL (Less than 2)
[2022-01-27 04:33] LABS: Bacteria/HPF 4+ HPF (None Seen); Bilirubin Negative (Negative); Blood, Urine 3+ (Negative); Clarity Extra Turbid (Clear); Glucose, Urine (Dipstick) Normal (Negative); Ketone, Urine Trace mg/dL (Negative); Leukocyte 500 Leu/uL (Negative); Nitrite 2+ (Negative); Protein, Urine (Dipstick) 300 mg/dL (Neg-Trace); RBC/HPF Greater than 50 HPF (0-3); Specific Gravity, Urine 1.019 (1.002-1.036); Urobilinogen Normal mg/dL (Less than 2); WBC/HPF Greater than 50 HPF (0-3); Yeast-Budding 2+ HPF (None Seen); pH, Urine 6.5 (5.0-9.0)
[2022-01-27 04:41] LABS: Trichomonas/HPF None Seen HPF (None Seen)
[2022-01-27] MEDS ORDERED: Lidocaine 2% PF 5 ML VIAL ONE (04:55)
[2022-01-27 05:03] LABS: ALT (SGPT) 13 U/L (8-55); AST (SGOT) 29 U/L (5-34); Alkaline Phosphatase 118 U/L (40-110); Anion Gap 14 mmol/L (10-20); BUN (Urea Nitrogen) 9 mg/dL (9.8-20.1); Bilirubin, Total 0.3 mg/dL (0.2-1.2); Calc. Creatinine Clearance 0 mL/min (70-130); Calcium 9.5 mg/dL (7.8-10.44); Carbon Dioxide 27 mmol/L (23-31); Chloride 101 mmol/L (98-107); Estimated GFR 79; Globulin 3.9 g/dL (2.4-3.5); Glucose 63 mg/dL (80-115); Protein, Total 7.9 g/dL (5.8-8.1); Sodium 138 mmol/L (136-145)
== END 2022-01-27 05:41 | disposition home or self-care (01) ==
LOC: ERS 03:28
DX: N99.521 Infection of incontinent external stoma of urinary tract (principal); M71.522 Other bursitis, not elsewhere classified, left elbow; N30.00 Acute cystitis without hematuria; Z86.73 Personal history of transient ischemic attack (TIA), and cerebral infarction without residual deficits; F17.210 Nicotine dependence, cigarettes, uncomplicated
CPT/HCPCS: 20605; 80053; 81003; 81015; 83605; 85025; 87077; 87086; 87186; 96374; J0696; J2001

== ENCOUNTER 2023-02-23 01:41 | Inpatient (IN) | payer MEDICARE, OTHER ==
[2023-02-23] MEDS ORDERED: Ketorolac Tromethamine 30 MG/ML VIAL ONE (02:25)
[2023-02-23] MEDS ORDERED: fentaNYL 50 mcg/mL 1 mL Vial ONE ×5 (03:10→15:03)
[2023-02-23] MEDS ORDERED: LORazepam 2 MG/ML SYR.(CARPUJECT) ONE (03:12)
[2023-02-23 04:55] LABS: #Monocytes 0.7 thou/uL (0.11-0.59); #Neutrophils 9.1 thou/uL (1.40-6.50); %Basophils 0.3 % (0.0-1.0); %Eosinophils 0.4 % (0.0-10.0); %Lymphocytes 8.9 % (21.0-51.0); %Monocytes 6.3 % (0.0-10.0); %Neutrophils 83.5 % (42.0-75.0); Hematocrit 40.3 % (36.0-47.0); Hemoglobin 13.3 g/dL (12.0-16.0); Mean Corpuscular Hemoglobin 30.4 pg (27.0-31.0); Mean Platelet Volume 9.1 fL (7.4-10.4); Platelet Count 243 10x3/uL (130-400); RBC Distribution Width 13.3 % (11.5-14.5); Red Blood Cell (RBC) Count 4.38 mill/uL (4.20-5.40); White Blood Cell (WBC) Count 10.8 10x3/uL (4.8-10.8)
[2023-02-23 05:20] LABS: INR-International Normal Ratio 1.1; Prothrombin Time 14.5 sec (12.0-14.7)
[2023-02-23 05:25] LABS: ALT (SGPT) 13 U/L (8-55); AST (SGOT) 15 U/L (5-34); Alkaline Phosphatase 93 U/L (40-110); Anion Gap 12 mmol/L (10-20); BUN (Urea Nitrogen) 12 mg/dL (9.8-20.1); Bilirubin, Total 0.6 mg/dL (0.2-1.2); Calc. Creatinine Clearance 0 mL/min (70-130); Calcium 8.7 mg/dL (7.8-10.44); Carbon Dioxide 28 mmol/L (23-31); Chloride 99 mmol/L (98-107); Estimated GFR 91; Globulin 2.4 g/dL (2.4-3.5); Glucose 110 mg/dL (80-115); Potassium 3.6 mmol/L (3.5-5.1); Protein, Total 6.4 g/dL (5.8-8.1); Sodium 135 mmol/L (136-145)
[2023-02-23] MEDS ORDERED: Morphine 4 MG/ML VIAL SLOW IVP PRN (06:12)
[2023-02-23] MEDS ORDERED: Ondansetron ODT 4 MG TAB SL PRN (06:15)
[2023-02-23] MEDS ORDERED: Ondansetron PF 4 MG/2 ML Vial IVP PRN (06:15)
[2023-02-23 07:10] VITALS: BMI 22.6
[2023-02-23] MEDS ORDERED: CEFAZOLIN 2 GM in Sodium Chloride 0.9% 100 ML IVPB SCH (07:30)
[2023-02-23] MEDS: D5 1/2 NS w/20 mEq KCL 1,000 ML IV SCH ×2 (08:02→15:43)
[2023-02-23] MEDS ORDERED: traMADol HCl 50 MG TAB PO PRN (09:37)
[2023-02-23] MEDS ORDERED: Acetaminophen 325 MG TAB PO SCH (12:00)
[2023-02-23] MEDS ORDERED: Clindamycin/D5W 900 mg/50 ml Premix Bag ONE (12:58)
[2023-02-23] MEDS ORDERED: LevoFLOXacin 500 mg/D5W 100 ML BAG ONE (12:58)
[2023-02-23] MEDS ORDERED: Ondansetron PF 4 MG/2 ML Vial ONE ×2 (13:29→15:10)
[2023-02-23] MEDS ORDERED: Lidocaine 1% PF 5 ML VIAL ONE (13:29)
[2023-02-23] MEDS ORDERED: PROPOFOL 200 MG/20 ML VIAL ONE (13:29)
[2023-02-23] MEDS ORDERED: Rocuronium Bromide 10 MG/ML (10ML VIAL) ONE (13:29)
[2023-02-23] MEDS ORDERED: FLU VACC QS2023(65UP)/MF59C/PF 60 MCG/0.5 ML SYRINGE IM ONE (14:00)
[2023-02-23] MEDS ORDERED: Clindamycin/D5W 900 MG in Premix 1 BAG IVPB SCH (14:00)
[2023-02-23] MEDS ORDERED: TETANUS, DIPHTHERIA TOX,ADULT (TDVAX) 0.5 ML VIAL IM ONE (14:00)
[2023-02-23] MEDS ORDERED: SUGAMMADEX SODIUM 200 MG/2 ML VIAL ONE (14:04)
[2023-02-23] MEDS ORDERED: Promethazine HCl 25 MG/ML VIAL IM PRN (14:42)
[2023-02-23] MEDS ORDERED: Ondansetron HCl/PF 4 MG/2 ML Vial IVP PRN (14:42)
[2023-02-23] MEDS: Morphine 4 MG/ML VIAL SLOW IVP PRN ×2 (18:18→23:16)
[2023-02-23] MEDS: Ondansetron PF 4 MG/2 ML Vial IVP PRN (21:15)
[2023-02-23] MEDS: Acetaminophen 500 MG TAB PO SCH (21:19)
[2023-02-23] MEDS: Clindamycin 150 MG CAP PO SCH (21:19)
[2023-02-23] MEDS: traMADol HCl 50 MG TAB PO PRN (21:25)
[2023-02-23] MEDS: ALPRAZolam 0.25 MG TAB PO PRN (21:26)
[2023-02-24] MEDS: Ondansetron PF 4 MG/2 ML Vial IVP PRN (02:39)
[2023-02-24] MEDS: Clindamycin 150 MG CAP PO SCH ×2 (03:05→08:52)
[2023-02-24 07:22] LABS: #Monocytes 0.9 thou/uL (0.11-0.59); #Neutrophils 7.4 thou/uL (1.40-6.50); %Basophils 0.3 % (0.0-1.0); %Eosinophils 0.3 % (0.0-10.0); %Lymphocytes 9.6 % (21.0-51.0); %Monocytes 9.9 % (0.0-10.0); %Neutrophils 79.6 % (42.0-75.0); Hematocrit 31.7 % (36.0-47.0); Mean Corpuscular HGB CONC 31.9 g/dL (32.0-36.0); Mean Corpuscular Hemoglobin 30.5 pg (27.0-31.0); Mean Corpuscular Volume 95.8 fl (78.0-98.0); Mean Platelet Volume 9.2 fL (7.4-10.4); Platelet Count 216 10x3/uL (130-400); RBC Distribution Width 13.7 % (11.5-14.5); Red Blood Cell (RBC) Count 3.31 mill/uL (4.20-5.40); White Blood Cell (WBC) Count 9.3 10x3/uL (4.8-10.8)
[2023-02-24 07:25] LABS: Hemoglobin 10.1 g/dL (12.0-16.0)
[2023-02-24] MEDS: Aspirin 81 mg Enteric Coated Tablet PO SCH ×2 (08:53→21:50)
[2023-02-24] MEDS: Acetaminophen 500 MG TAB PO SCH ×4 (08:53→21:51)
[2023-02-24] MEDS: Polyethylene Glycol 3350 17 GM Packet PO SCH (08:56)
[2023-02-24] MEDS: Morphine 4 MG/ML VIAL SLOW IVP PRN ×2 (09:06→19:40)
[2023-02-24] MEDS: Albuterol 200 PUFF (6.7GM INHALER) INH PRN (19:44)
[2023-02-24] MEDS: ALPRAZolam 0.25 MG TAB PO PRN (22:03)
[2023-02-25] MEDS: Morphine 4 MG/ML VIAL SLOW IVP PRN (03:21)
[2023-02-25 07:21] LABS: #Eosinphils 0.1 thou/uL (0.0-0.7); #Monocytes 0.8 thou/uL (0.11-0.59); #Neutrophils 5.2 thou/uL (1.40-6.50); %Basophils 0.3 % (0.0-1.0); %Eosinophils 0.8 % (0.0-10.0); %Lymphocytes 18.7 % (21.0-51.0); %Monocytes 10.6 % (0.0-10.0); %Neutrophils 69.1 % (42.0-75.0); Hematocrit 25.6 % (36.0-47.0); Hemoglobin 8.2 g/dL (12.0-16.0); Mean Corpuscular Hemoglobin 31.1 pg (27.0-31.0); Mean Platelet Volume 9.5 fL (7.4-10.4); Platelet Count 204 10x3/uL (130-400); RBC Distribution Width 13.9 % (11.5-14.5); Red Blood Cell (RBC) Count 2.64 mill/uL (4.20-5.40); White Blood Cell (WBC) Count 7.6 10x3/uL (4.8-10.8)
[2023-02-25] MEDS: Polyethylene Glycol 3350 17 GM Packet PO SCH (09:32)
[2023-02-25] MEDS: Aspirin 81 mg Enteric Coated Tablet PO SCH ×2 (09:32→21:27)
[2023-02-25] MEDS: Acetaminophen 500 MG TAB PO SCH ×3 (09:32→18:00)
[2023-02-25] MEDS ORDERED: Polyethylene Glycol 3350 17 GM Packet PO PRN (17:38)
[2023-02-25] MEDS: ALPRAZolam 0.25 MG TAB PO PRN (17:54)
[2023-02-25] MEDS: Ibuprofen 200 MG TAB PO PRN ×2 (17:54→23:47)
[2023-02-25] MEDS: Albuterol 200 PUFF (6.7GM INHALER) INH PRN (19:58)
[2023-02-25] MEDS: Acetaminophen 500 MG TAB PO PRN (21:40)
[2023-02-25] MEDS: traMADol HCl 50 MG TAB PO PRN (21:40)
[2023-02-25] MEDS ORDERED: Ipratropium/Albuterol 3 ML NEB NEB PRN (21:59)
[2023-02-25 22:50] LABS: Troponin I 0.023 ng/mL (< 0.028)
[2023-02-26] MEDS: traMADol HCl 50 MG TAB PO PRN ×2 (04:31→21:20)
[2023-02-26] MEDS: Acetaminophen 500 MG TAB PO PRN ×2 (04:31→18:32)
[2023-02-26 05:58] LABS: #Eosinphils 0.1 thou/uL (0.0-0.7); #Monocytes 0.6 thou/uL (0.11-0.59); #Neutrophils 2.9 thou/uL (1.40-6.50); %Basophils 0.6 % (0.0-1.0); %Eosinophils 2.5 % (0.0-10.0); %Lymphocytes 28.5 % (21.0-51.0); %Neutrophils 56.2 % (42.0-75.0); Hematocrit 23.6 % (36.0-47.0); Hemoglobin 7.6 g/dL (12.0-16.0); Mean Corpuscular HGB CONC 32.2 g/dL (32.0-36.0); Mean Corpuscular Hemoglobin 31.1 pg (27.0-31.0); Mean Corpuscular Volume 96.7 fl (78.0-98.0); Mean Platelet Volume 9.4 fL (7.4-10.4); Platelet Count 195 10x3/uL (130-400); RBC Distribution Width 13.8 % (11.5-14.5); Red Blood Cell (RBC) Count 2.44 mill/uL (4.20-5.40); White Blood Cell (WBC) Count 5.2 10x3/uL (4.8-10.8)
[2023-02-26 06:30] LABS: Anion Gap 9 mmol/L (10-20); BUN (Urea Nitrogen) 11 mg/dL (9.8-20.1); Calc. Creatinine Clearance 75 mL/min (70-130); Calcium 8.7 mg/dL (7.8-10.44); Carbon Dioxide 31 mmol/L (23-31); Chloride 101 mmol/L (98-107); Estimated GFR 97; Glucose 104 mg/dL (80-115); Phosphorus 3.5 mg/dL (2.3-4.7); Potassium 4.1 mmol/L (3.5-5.1); Sodium 137 mmol/L (136-145)
[2023-02-26] MEDS: Ondansetron PF 4 MG/2 ML Vial IVP PRN (09:10)
[2023-02-26] MEDS: Gabapentin 100 MG CAP PO SCH ×3 (09:11→21:14)
[2023-02-26] MEDS: Aspirin 81 mg Enteric Coated Tablet PO SCH ×2 (09:11→21:12)
[2023-02-26] MEDS: Ascorbic Acid 500 mg Chewable Tablet PO SCH ×2 (09:22→21:12)
[2023-02-26] MEDS: Ferrous Sulfate 325 MG TAB PO SCH ×2 (09:22→21:14)
[2023-02-26 11:27] LABS: Troponin I 0.018 ng/mL (< 0.028)
[2023-02-26] MEDS: Ibuprofen 200 MG TAB PO PRN (18:30)
[2023-02-26] MEDS: ALPRAZolam 0.25 MG TAB PO PRN (22:03)
[2023-02-27 04:25] VITALS: TEMP 97.7
[2023-02-27] MEDS: Acetaminophen 500 MG TAB PO PRN (04:34)
[2023-02-27] MEDS: Ibuprofen 200 MG TAB PO PRN (04:35)
[2023-02-27 06:08] LABS: #Eosinphils 0.1 thou/uL (0.0-0.7); #Monocytes 0.4 thou/uL (0.11-0.59); #Neutrophils 2.2 thou/uL (1.40-6.50); %Monocytes 10.6 % (0.0-10.0); %Neutrophils 56.1 % (42.0-75.0); Hematocrit 24.7 % (36.0-47.0); Hemoglobin 7.9 g/dL (12.0-16.0); Mean Corpuscular Hemoglobin 30.5 pg (27.0-31.0); Mean Corpuscular Volume 95.4 fl (78.0-98.0); Mean Platelet Volume 9.2 fL (7.4-10.4); Platelet Count 240 10x3/uL (130-400); RBC Distribution Width 13.9 % (11.5-14.5); Red Blood Cell (RBC) Count 2.59 mill/uL (4.20-5.40)
[2023-02-27 06:39] LABS: ALT (SGPT) 11 U/L (8-55); AST (SGOT) 16 U/L (5-34); Albumin 3.5 g/dL (3.4-4.8); Alkaline Phosphatase 69 U/L (40-110); Anion Gap 10 mmol/L (10-20); BUN (Urea Nitrogen) 11 mg/dL (9.8-20.1); Bilirubin, Total 0.5 mg/dL (0.2-1.2); Calc. Creatinine Clearance 74 mL/min (70-130); Calcium 9.5 mg/dL (7.8-10.44); Carbon Dioxide 31 mmol/L (23-31); Chloride 99 mmol/L (98-107); Estimated GFR 96; Globulin 2.3 g/dL (2.4-3.5); Glucose 86 mg/dL (80-115); Magnesium 1.9 mg/dL (1.6-2.6); Phosphorus 4.1 mg/dL (2.3-4.7); Potassium 3.9 mmol/L (3.5-5.1); Protein, Total 5.8 g/dL (5.8-8.1); Sodium 136 mmol/L (136-145)
[2023-02-27] MEDS: Aspirin 81 mg Enteric Coated Tablet PO SCH (08:58)
[2023-02-27] MEDS: Ferrous Sulfate 325 MG TAB PO SCH (08:58)
[2023-02-27] MEDS: Ascorbic Acid 500 mg Chewable Tablet PO SCH (09:00)
[2023-02-27] MEDS: Gabapentin 100 MG CAP PO SCH (09:01)
[2023-02-27] MEDS: traMADol HCl 50 MG TAB PO PRN (09:05)
[2023-02-27] MEDS ORDERED: Magnesium Citrate 300 ML BOT PO SCH (10:45)
[2023-02-27 13:29] VITALS: BP 128/79
[2023-02-27] MEDS ORDERED: Senokot S 8.6-50 MG TAB PO SCH (21:00)
[2023-02-28] MEDS ORDERED: Polyethylene Glycol 3350 17 GM Packet PO SCH (09:00)
== END 2023-02-27 12:45 | disposition swing bed (61) | DRG 481 ==
LOC: ERS 01:41 → SURG A 04:37
PROVIDERS: ADMIT Specialist; ATTEND Specialist
PROC: 0QS704Z Reposition Left Upper Femur with Internal Fixation Device, Open Approach (ICD-10-PCS; principal; 2023-02-23)
DX: S72.142A Displaced intertrochanteric fracture of left femur, initial encounter for closed fracture (principal); N13.30 Unspecified hydronephrosis; S82.002A Unspecified fracture of left patella, initial encounter for closed fracture; M25.562 Pain in left knee; F17.210 Nicotine dependence, cigarettes, uncomplicated; W18.30XA Fall on same level, unspecified, initial encounter; K43.5 Parastomal hernia without obstruction or gangrene; J44.9 Chronic obstructive pulmonary disease, unspecified; Z96.0 Presence of urogenital implants; Z88.0 Allergy status to penicillin; Z88.2 Allergy status to sulfonamides; Z93.3 Colostomy status; Z98.890 Other specified postprocedural states; Z98.51 Tubal ligation status; Z86.73 Personal history of transient ischemic attack (TIA), and cerebral infarction without residual deficits; Z88.5 Allergy status to narcotic agent
CPT/HCPCS: 36415; 36416; 71045; 72192; 80048; 80053; 83735; 84100; 84484; 85025; 85610; 85730; 93005; 93010; 93970; 94640; 96374; 96375; 97139; C1713; J1885; J1956; J2060; J2270; J2405; J2704; J3010; J3480; J3490; J7620